=== PATIENT | female | born 1940 | race African-American/Black ===

== ENCOUNTER 2016-11-16 10:14 | Emergency (ER) | payer MEDICARE, MEDICAID ==
[~2016-11-16 10:14] MED LIST: /AMLO25TA OR; /BUSP5TA OR; /FELO5TASR PO; /LORA10TA PO; /PRAV20TA PO; /SYST15OP OU; /WARF2TA PO; /WARF5TA OR; /WARF5TA PO; ACTO45TA OR; ALBU17IN2 INH; ALLE25CA PO; ALLO100T OR; ALLO100T PO; ALLO300T OR; ALRE0.5S OU; AMLO10TAB OR; AMLO5TAB OR; ANTI25TA OR; BABY81CH OR; CALC0.5C OR; CALC0.5C PO; CARV12.5 PO; CARV3.12 PO; CARV6.25 OR; CATA0.1T PO; CEFD300C OR; CLAR5CHW OR; COLA100C2 OR; COLA100C2 PO; COLA50CA3 PO; COLC1TAB5 PO; COZA100T2 PO; COZA25TA8 OR; DEMA5TAB OR; DOXY100C PO; FAMO20TA2 PO; FEBU40TA PO; FELO10TA PO; FOLI1TAB OR; FOLI400T OR; FURO40TA2 PO; GABA300C2 PO; HYDR25TA OR; IMDU30TA PO; INSULANT SC; ISOS30TA4 PO; ISOS60TA2 PO; JANU100T PO; KLON0.5T OR; LORATADINE PO; LOSA100T36 PO; MAGN500T2 OR; MECL12.575 PO; MECL25CH PO; MICA80TA OR; MICARDIS OR; MILKSUS OR; MIRALEX PO; NEUR100C OR; NITR0.4S SL; OMEP20TA7 OR; PAIN325T PO; PERCOCET PO; PLAV75TA2 OR; POLYBTL PO; PRAV10TA PO; PRED20TAB PO; PRED25TA PO; PRED5SOL2 PO; PRIL20CA OR; PRIL20CA9 PO; PRIL40CA OR; REFR0.1D OU; REFRESH OU; REST0.05 OU; RESTASIS OU; ROCALTROL; SALI0.653; SIMV40TA2 OR; SITA50TAB PO; SPIR25TA2 OR; SPIR25TA2 PO; SUSTAIN OU; SYST1SOL OU; TORS20TA2 OR; TORS5TAB PO; TRAM50TA2 PO; TRAZ100T OR; TRAZ100T PO; TRAZ50TA OR; TUMS500C PO; VIBR100C OR; VITAMIN D50000 UNT OR; WARF-23 PO; [UNRECOGNIZED DRUG - CODE] PO; [UNRECOGNIZED DRUG - OTHER]; [UNRECOGNIZED DRUG - OTHER]; [UNRECOGNIZED DRUG - OTHER]; [UNRECOGNIZED DRUG - OTHER]; coreg PO; flexeril PO; januvia PO; loratadine OR; norvasc; restasis OU; systane OU; tylenol; uloric
[2016-11-16 11:29] LABS: BASO % 0.9 % (0.0-1.0); EOS % 0.3 % (0.0-3.0); LARGE UNSTAINED CELL # 0.2 K/mm3 (0.0-0.4); LARGE UNSTAINED CELL % 4.6 % (0.0-4.0); LYMPH # 2.1 K/mm3 (1.5-4.5); LYMPH % 43.2 % (24.0-44.0); MEAN CORPUSCULAR HEMOGLOBIN 26.7 pg (27.0-33.0); MEAN CORPUSCULAR HGB CONC 33.5 g/dl (32.0-36.5); MEAN CORPUSCULAR VOLUME 79.7 fl (80.0-96.0); MONO # 0.4 K/mm3 (0.0-0.8); MONO % 7.8 % (0.0-5.0); NEUTROPHILS # 1.9 K/mm3 (1.8-7.7); NEUTROPHILS % 43.1 % (36.0-66.0); PLATELET COUNT, AUTOMATED 248 k/mm3 (150-450); RED CELL DISTRIBUTION WIDTH 15.3 % (11.5-14.5); WHITE BLOOD COUNT 4.4 K/mm3 (4.0-10.0)
[2016-11-16 11:48] LABS: ANION GAP 7 MEQ/L (8-16); BLOOD UREA NITROGEN 23 MG/DL (7-18); CALCIUM LEVEL 8.7 MG/DL (8.8-10.2); CARBON DIOXIDE LEVEL 28 MEQ/L (21-32); CHLORIDE LEVEL 103 MEQ/L (98-107); GLOMERULAR FILTRATION RATE 47.3 (>39); GLUCOSE, FASTING 146 MG/DL (83-110); POTASSIUM SERUM 3.9 MEQ/L (3.5-5.1); SODIUM LEVEL 138 MEQ/L (136-145)
[2016-11-16] MEDS ORDERED: DOXYCYCLINE HYCLATE 100 MG TAB As Ordered ONE (12:40)
--- NOTE | 2016-11-16 12:57 | EDDOCDS ---
Nurse's Notes [facility] Name: Naya Plascencia Age: 76 yrs Sex: Female : 1940 Arrival Date: 11/16/2016 Time: 10:14 Bed 15 Private MD: DR [facility] Diagnosis: Acute sinusitis;Acute bronchitis Presentation: 11/16 10:20 Presenting complaint: Patient states: "I have bronchitis since , and it's ead getting worse." Reports productive cough. Also c/o diarrhea yesterday. Adult Sepsis Screening: The patient does not have new or worsening altered mentation. Patient's respiratory rate is less than 22. Systolic blood pressure is greater than 100. Patient has a qSOFA score of 0- Negative Sepsis Screen. Suicide/Homicide risk assessment- the patient denies having any suicidal and/or homicidal ideations and does not present with any other emotional, behavioral or mental health complaints. Status: Patient is not a car servicer or dependent. Transition of care: patient was not received from another setting of care. 10:20 Acuity: PARMINDER Level 4 ead 10:20 Method Of Arrival: Walkin/Carried/Asstd ead 10:59 Acuity: PARMINDER Level 3 ead Triage Assessment: 10:24 General: Appears in no apparent distress, Behavior is appropriate for age, cooperative. ead Pain: Location: back. Pain: Pain currently is 9 out of 10 on a pain scale. Neurological: Level of Consciousness is awake, alert, Oriented to person, place, time. Respiratory: Airway is patent Respiratory effort is even, unlabored, Reports cough that is productive. Respiratory: Onset: The symptoms/episode began/occurred 4-5 days ago. Derm: Skin is dry, Skin is normal, Skin temperature is warm. Historical: - Allergies: Albuterol; HYDRALAZINE; IRON COMPLEX; Lisinopril; Lipitor; Nitrostat; Metformin HCl; Ragweed; PENICILLINS; Sulfa (Sulfonamide Antibiotics); Aspirin; - Home Meds: 1. Lantus 30 units Sub-Q daily 2. Eliquis 5 mg oral tab 1 tab 2 times per day 3. carvedilol 6.25 mg oral tab 2 times per day 4. omeprazole 20 mg Oral cpDR once daily 5. chlorthalidone 25 mg Oral tab once daily 6. acetaminophen 650 mg Oral tab 1 tab as needed - PMHx: polyarthralgia; Hypertension; hyperlipidemia; Diabetes - IDDM: controlled; cerebral amyloid angiopathy; back pain; Atrial Fib; GERD; - PSHx: blood clot removal from right groin; - Social history: Smoking status: Patient states former smoker of tobacco. No barriers to communication noted, The patient speaks fluent Luxembourgish, Speaks appropriately for age. - Family history: Not pertinent. - : The pt / caregiver states he / she is on anticoagulants: Eliquis Home medication list is obtained from the patient, pill bottles. - Exposure Risk Screening:: None identified. Screenin:25 Screening information is obtained from the patient. Fall risk: No risks identified. ead Assistance ADL's: requires no assistance with activities of daily living. Abuse/DV Screen: The patient / caregiver reports he/she is: not in a situation that causes fear, pain or injury. Nutritional screening: No deficits noted. Advance Directives: Currently, there is a health care proxy, Zac Fuentes and Nii Betts. There is an active DNR order and the pt has a copy here at this time. There is a living will, and a copy is available at this time. There is no Power of Systems Analyst Developer. information regarding advance directives can be obtained from Zac Fuentes: [phone] and Nii Betts: [phone]. Advance Directives: There is. home support is adequate. Assessment: 11:17 General: Appears in no apparent distress, Behavior is appropriate for age, cooperative. hs1 Pain: Location: mid-sternal area Pain currently is 8 out of 10 on a pain scale. Neurological: No deficits noted. EENT: No deficits noted. Cardiovascular: Rhythm is sinus rhythm No ectopy. Chest pain is described as mild, ONLY WHEN SHE COUGHS. is located in sternum. Respiratory: Airway is patent Respiratory effort is even, unlabored, Breath sounds are coarse bilaterally. Derm: Skin is pink, warm & dry. normal. 12:28 Reassessment: Patient states symptoms have not improved. Patient states still coughing. hs1 Patient states aware of discharge and would like to go home. Patient states daughter picking her up. . General: Appears in no apparent distress. 12:54 Reassessment: Patient short of breath with exertion.. General: Appears comfortable, kcs well developed, well nourished, well groomed, Behavior is cooperative, pleasant. Pain: Location: chest Aggravated by coughing. Neurological: Level of Consciousness is awake, alert. Respiratory: Airway is patent Respiratory effort is even, unlabored, Respiratory pattern is regular, symmetrical. Derm: Skin is intact, is healthy with good turgor, Skin is dry, Skin is black. Vital Signs: 10:17 BP 167 / 85; Pulse 98; Resp 20 S; Temp 98.4(O); Pulse Ox 98% on R/A; Weight 94.35 kg dd6 (R); Height 5 ft. 4 in. (162.56 cm) (R); 11:43 BP 123 / 67 (auto/); hs1 11:43 Pulse 62 MON; Pulse Ox 99% ; hs1 12:13 BP 153 / 72 (auto/); hs1 12:13 Pulse 66 MON; Resp 18; Pulse Ox 100% ; hs1 12:42 Pulse 68 MON; Resp 18; Temp 98.3; Pulse Ox 96% ; Pain 8/10; hs1 12:43 BP 146 / 66 (auto/); hs1 10:17 Body Mass Index 35.70 (94.35 kg, 162.56 cm) dd6 Vitals: 10:17 Log In Time: November 16, 2016 at 10:15. dd6 ED Course: 10:15 Patient visited by Gino Braden PCA. dd6 10:15 Patient moved to Waiting dd6 10:16 DR [facility] is Private Physician. dd6 10:18 Patient moved to Pre RCE dd6 10:21 Triage Initiated ead 10:28 Patient moved to Triage 1 ead 10:29 [facility]ast[facility] ef1 10:29 Edith Etienne MD is Attending Physician. ef1 10:31 Patient visited by Anastasiia Araya PA-C. ef1 10:45 EKG done. (by ED staff). Reviewed by Anastasiia Araya PA-C. ar3 10:52 Patient visited by Sonia Falk PCA. ar3 11:01 Patient moved to 19 ar3 11:02 Patient moved to Triage 1 jc4 11:03 Patient moved to 15 ar3 11:19 Inserted saline lock: 20 gauge in right antecubital area and blood collected. The hs1 patient tolerated the procedure well. 11:22 Patient visited by Sarah Michaud RN. hs1 11:22 Basic Metabolic Profile Sent. hs1 11:22 CBC with Diff Sent. hs1 11:22 Cardiac Injury Profile Sent. hs1 11:22 Troponin Sent. hs1 11:30 [facility] Payment Agreement was scanned into [employer] and attached to record. lg 11:49 Patient visited by Anastasiia Araya PA-C. ef1 12:14 Patient visited by Anastasiia Araya PA-C. ef1 12:25 The patient / caregiver is instructed regarding the plan of care and ED course. hs1 12:37 DR [facility] is Referral Physician. ef1 12:37 Michael Watkins is Referral Physician. ef1 12:45 Discontinued IV lock intact, bleeding controlled, pressure dressing applied, No hs1 redness/swelling at site. 12:45 No procedures done that require assistance. hs1 Administered Medications: 12:43 Drug: Doxycycline 100 mg [doxycycline hyclate 100 mg tablet (1 tabs)] Route: PO; hs1 Order Results: Lab Order: Basic Metabolic Profile; SPEC'M 11/16/16 11:06 Test: GLUCOSE, FASTING; Value: 146; Range: 83-110; Abnormal: Above high normal; Units: MG/DL; Status: F Test: BLOOD UREA NITROGEN; Value: 23; Range: 7-18; Abnormal: Above high normal; Units: MG/DL; Status: F Test: CREATININE FOR GFR; Value: 1.40; Range: 0.55-1.02; Abnormal: Above high normal; Units: MG/DL; Status: F Test: GLOMERULAR FILTRATION RATE; Value: 47.3; Range: >39; Status: F Test: SODIUM LEVEL; Value: 138; Range: 136-145; Units: MEQ/L; Status: F Test: POTASSIUM SERUM; Value: 3.9; Range: 3.5-5.1; Units: MEQ/L; Status: F Test: CHLORIDE LEVEL; Value: 103; Range: 98-107; Units: MEQ/L; Status: F Test: CARBON DIOXIDE LEVEL; Value: 28; Range: 21-32; Units: MEQ/L; Status: F Test: ANION GAP; Value: 7; Range: 8-16; Abnormal: Below low normal; Units: MEQ/L; Status: F Test: CALCIUM LEVEL; Value: 8.7; Range: 8.8-10.2; Abnormal: Below low normal; Units: MG/DL; Status: F Test Note: ; Units are mL/min/1.73 m2 Chronic Kidney Disease Staging per NKF: Stage I & II GFR >=60 Normal to Mildly Decreased Stage III GFR 30-59 Moderately Decreased Stage IV GFR 15-29 Severely Decreased Stage V GFR <15 Very Little GFR Left ESRD GFR <15 on STAMPING OPERATOR Lab Order: CBC with Diff; SPEC'M 11/16/16 11:06 Test: WHITE BLOOD COUNT; Value: 4.4; Range: 4.0-10.0; Units: K/mm3; Status: F Test: RED BLOOD COUNT; Value: 4.61; Range: 4.00-5.40; Units: M/mm3; Status: F Test: HEMOGLOBIN; Value: 12.3; Range: 12.0-16.0; Units: g/dl; Status: F Test: HEMATOCRIT; Value: 36.8; Range: 36.0-47.0; Units: %; Status: F Test: MEAN CORPUSCULAR VOLUME; Value: 79.7; Range: 80.0-96.0; Abnormal: Below low normal; Units: fl; Status: F Test: MEAN CORPUSCULAR HEMOGLOBIN; Value: 26.7; Range: 27.0-33.0; Abnormal: Below low normal; Units: pg; Status: F Test: MEAN CORPUSCULAR HGB CONC; Value: 33.5; Range: 32.0-36.5; Units: g/dl; Status: F Test: RED CELL DISTRIBUTION WIDTH; Value: 15.3; Range: 11.5-14.5; Abnormal: Above high normal; Units: %; Status: F Test: PLATELET COUNT, AUTOMATED; Value: 248; Range: 150-450; Units: k/mm3; Status: F Test: NEUTROPHILS %; Value: 43.1; Range: 36.0-66.0; Units: %; Status: F Test: LYMPH %; Value: 43.2; Range: 24.0-44.0; Units: %; Status: F Test: MONO %; Value: 7.8; Range: 0.0-5.0; Abnormal: Above high normal; Units: %; Status: F Test: EOS %; Value: 0.3; Range: 0.0-3.0; Units: %; Status: F Test: BASO %; Value: 0.9; Range: 0.0-1.0; Units: %; Status: F Test: LARGE UNSTAINED CELL %; Value: 4.6; Range: 0.0-4.0; Abnormal: Above high normal; Units: %; Status: F Test: NEUTROPHILS #; Value: 1.9; Range: 1.8-7.7; Units: K/mm3; Status: F Test: LYMPH #; Value: 2.1; Range: 1.5-4.5; Units: K/mm3; Status: F Test: MONO #; Value: 0.4; Range: 0.0-0.8; Units: K/mm3; Status: F Test: EOS #; Value: 0.0; Range: 0.0-0.50; Units: K/mm3; Status: F Test: BASO #; Value: 0.0; Range: 0.0-0.2; Units: K/mm3; Status: F Test: LARGE UNSTAINED CELL #; Value: 0.2; Range: 0.0-0.4; Units: K/mm3; Status: F Lab Order: Cardiac Injury Profile; [facility]' 11/16/16 11:06 Test: CPK CREATINE PHOSPHOKINASE; Value: 194; Range: 26-192; Abnormal: Above high normal; Units: U/L; Status: F Test: CK-MB VALUE MASS; Value: 1.7; Range: 0.0-3.6; Units: NG/ML; Status: F Test: MB/CK RELATIVE INDEX; Value: 0.87; Range: < OR =4; Status: F Test Note: ; DIAGNOSIS CRITERIA MMB ng/ml Relative Index (RI) NON-AMI < or = 5 N/A MARIE ZONE > 5 < or = 4 AMI > 5 > 4 Lab Order: Troponin; SPEC'M 11/16/16 11:06 Test: TROPONIN I; Value: < 0.02; Range: < 0.10; Units: NG/ML; Status: F Test Note: ; Troponin I Reference Interval for [employer] LOCI: 99th Percentile= 0.00-0.045 ng/ml Risk Stratification: <= 0.10 ng/ml Decreased Risk for Adverse Clinical Events. 0.10-1.50 ng/ml Increased Risk for Adverse Clinical Events. Evaluation of additional criterion and/or repeat testing in 2-6 hours is suggested to rule out myocardial damage. >= 1.50 ng/ml Indicative of Myocardial Injury. Outcome: 12:37 Discharge ordered by Provider. ef1 12:54 Discharge Assessment: Patient awake, alert and oriented x 3. No cognitive and/or kcs functional deficits noted. Patient verbalized understanding of disposition instructions. Patient awake and alert. patient administered narcotics - no. The following High Risk Discharge criteria are identified: None. Discharged to home ambulatory. Condition: stable. Discharge instructions given to patient, Instructed on discharge instructions, follow up and referral plans. medication usage, Demonstrated understanding of instructions, medications, Pt was receptive of discharge instructions/ teaching. No special radiology studies were completed. Property sent home with patient. 12:57 Patient left the ED. kcs Signatures: Sinai Yeung, RN RN kcs Melani Mccarthy, Reg Reg lg Gino Braden, NEEDLEWORKER NEEDLEWORKER dd6 Anastasiia Araya, PA-C PA-C ef1 Sonia Falk, NEEDLEWORKER NEEDLEWORKER ar3 Sarah Michaud RN RN hs1 Dannielle Crespo RN RN jc4 Tania Lopez,SHAMIKA RN ead Corrections: (The following items were deleted from the chart) 12:51 11:17 Cardiovascular: Rhythm is sinus rhythm No ectopy. Chest pain is described as hs1 mild, ONLY WHEN SHE COUGHS. is located in STRENUM hs1 MTDD
--- NOTE | 2016-11-16 12:57 | EDDOCDS ---
Physician Documentation [facility] Name: Naya Plascencia Age: 76 yrs Sex: Female : 1940 Arrival Date: 11/16/2016 Time: 10:14 Bed 15 Private MD: DR [facility] Disposition: 11/16/16 12:37 Discharged to Home/Self Care. Impression: Acute sinusitis, Acute bronchitis. - Condition is Stable. - Discharge Instructions: Sinusitis, [id number], Acute Bronchitis, [id number]. - Prescriptions for Doxycycline Hyclate 100 mg Oral Tablet - take 1 tablet by ORAL route every 12 hours; 20 tablet. Claritin 10 mg Oral Tablet - take 1 tablet by ORAL route once daily As needed; 30 tablet. - Medication Reconciliation, Local Pharmacy Hours form. - Follow up: [facility]; When: 1 - 2 days; Reason: Recheck today's complaints, Continuance of care. Follow up: Emergency Department; Reason: Worsening of conditions. Follow up: Michael Watkins; When: Call to arrange an appointment; Reason: Further diagnostic work-up, Recheck today's complaints, Continuance of care. - Problem is new. - Symptoms have improved. Historical: - Allergies: Albuterol; HYDRALAZINE; IRON COMPLEX; Lisinopril; Lipitor; Nitrostat; Metformin HCl; Ragweed; PENICILLINS; Sulfa (Sulfonamide Antibiotics); Aspirin; - Home Meds: 1. Lantus 30 units Sub-Q daily 2. Eliquis 5 mg oral tab 1 tab 2 times per day 3. carvedilol 6.25 mg oral tab 2 times per day 4. omeprazole 20 mg Oral cpDR once daily 5. chlorthalidone 25 mg Oral tab once daily 6. acetaminophen 650 mg Oral tab 1 tab as needed - PMHx: polyarthralgia; Hypertension; hyperlipidemia; Diabetes - IDDM: controlled; cerebral amyloid angiopathy; back pain; Atrial Fib; GERD; - PSHx: blood clot removal from right groin; - Social history: Smoking status: Patient states former smoker of tobacco. No barriers to communication noted, The patient speaks fluent Luxembourgish, Speaks appropriately for age. - Family history: Not pertinent. - : The pt / caregiver states he / she is on anticoagulants: Eliquis Home medication list is obtained from the patient, pill bottles. - Exposure Risk Screening:: None identified. Vital Signs: 11/16 10:17 BP 167 / 85; Pulse 98; Resp 20 S; Temp 98.4(O); Pulse Ox 98% on R/A; Weight 94.35 kg / dd6 208.01 lbs (R); Height 5 ft. 4 in. (162.56 cm) (R); 11:43 BP 123 / 67 (auto/); hs1 11:43 Pulse 62 MON; Pulse Ox 99% ; hs1 12:13 BP 153 / 72 (auto/); hs1 12:13 Pulse 66 MON; Resp 18; Pulse Ox 100% ; hs1 12:42 Pulse 68 MON; Resp 18; Temp 98.3; Pulse Ox 96% ; Pain 8/10; hs1 12:43 BP 146 / 66 (auto/); hs1 10:17 Body Mass Index 35.70 (94.35 kg, 162.56 cm) dd6 MDM: 10:40 ECG WITH READING ER PHYS+CARDIAG ordered. EDMS 11:01 Computer Numerical Control Operator/Pulse Ox/q 30 min VS ordered. ef1 11:01 IV Saline Lock ordered. ef1 11:01 Oxygen at 4L/Min NC or Home dosage ordered. ef1 11:01 Rhythm Strip to chart ordered. ef1 11:01 Undress patient appropriately for examination ordered. ef1 11:02 Basic Metabolic Profile Ordered. EDMS 11:02 CBC with Diff Ordered. EDMS 11:02 Cardiac Injury Profile Ordered. EDMS 11:02 Troponin Ordered. EDMS 11:02 portable chest Ordered. EDMS 11:29 Financial registration complete. lg 11:30 [facility] [place] [place] Payment Agreement was scanned into [employer] and attached to record. lg 11:50 Basic Metabolic Profile Reviewed. ef1 11:50 CBC with Diff Reviewed. ef1 11:50 Troponin Reviewed. ef1 12:14 Basic Metabolic Profile Reviewed. ef1 12:14 Cardiac Injury Profile Reviewed. ef1 12:14 Troponin Reviewed. ef1 12:36 Doxycycline 100 mg PO once ordered. ef1 Administered Medications: 12:43 Drug: Doxycycline 100 mg [doxycycline hyclate 100 mg tablet (1 tabs)] Route: PO; hs1 Signatures: Dispatcher [facility] EDNV Sinai Yeung RN RN kcs Ganter LoriLee, Reg Reg lg Quiana, Anastasiia, PA-C PA-C ef1 Tania Lopez RN RN ead Sarah Michaud RN hs1 The chart was reviewed and I authenticate all verbal orders and agree with the evaluation and treatment provided.Attachments: 11:30 [facility] Payment Agreement lg MTDD
--- NOTE | 2016-11-16 20:21 | REP ---
Portable sitting chest radiograph 11/16/2016 Indication: Pain Comparison: PA chest 03/21/2016 Findings: The cardiac silhouette is mildly enlarged without change. Atherosclerotic changes are seen in the tortuous thoracic aorta. There are diminished lung volumes with small amount of bibasilar atelectasis. There are moderate degenerative changes in thoracic spine. Soft tissues are within normal limits. Impression: Mild cardiomegaly, unchanged; atherosclerotic changes and tortuous thoracic aorta Diminished lung volumes with a small amount of bibasilar atelectasis Signed by Donna Valente MD 11/16/2016 08:12 P
--- NOTE | 2016-11-17 08:02 | ECGEPIP ---
Stationary ECG Study [facility] - ED Test Date: 2016-11-16 Pat Name: VIVIANA PEÑALOZA Department: Room: - Gender: F Media Production Operator: agustín : 1940 Requested By: Anastasiia Araya PA-C Order Number: [id number] Reading MD: Chloe Boone Measurements Intervals [place] Rate: 70 P: 65 [place]: 160 QRS: 23 QRSD: 85 T: 223 QT: 389 QTc: 420 Interpretive Statements SINUS RHYTHM WITH OCCASIONAL VENTRICULAR PREMATURE COMPLEXES LEFT VENTRICULAR HYPERTROPHY AND ST-T CHANGE NSTTW ABNORMALITY SIMILAR 03/21/16 Electronically Signed On 11-17-2016 8:02:08 EST by Chloe Boone
--- NOTE | 2016-11-18 13:57 | EDDOCDS ---
Nurse's Notes [facility] Name: Naya Peñaloza Age: 76 yrs Sex: Female : 1940 Arrival Date: 11/16/2016 Time: 10:14 Bed 15 Private MD: DR [facility] Diagnosis: Acute sinusitis;Acute bronchitis Presentation: 11/16 10:20 Presenting complaint: Patient states: "I have bronchitis since , and it's ead getting worse." Reports productive cough. Also c/o diarrhea yesterday. Adult Sepsis Screening: The patient does not have new or worsening altered mentation. Patient's respiratory rate is less than 22. Systolic blood pressure is greater than 100. Patient has a qSOFA score of 0- Negative Sepsis Screen. Suicide/Homicide risk assessment- the patient denies having any suicidal and/or homicidal ideations and does not present with any other emotional, behavioral or mental health complaints. Status: Patient is not a servicenow administrator developer or dependent. Transition of care: patient was not received from another setting of care. 10:20 Acuity: PARMINDER Level 4 ead 10:20 Method Of Arrival: Walkin/Carried/Asstd ead 10:59 Acuity: PARMINDER Level 3 ead Triage Assessment: 10:24 General: Appears in no apparent distress, Behavior is appropriate for age, cooperative. ead Pain: Location: back. Pain: Pain currently is 9 out of 10 on a pain scale. Neurological: Level of Consciousness is awake, alert, Oriented to person, place, time. Respiratory: Airway is patent Respiratory effort is even, unlabored, Reports cough that is productive. Respiratory: Onset: The symptoms/episode began/occurred 4-5 days ago. Derm: Skin is dry, Skin is normal, Skin temperature is warm. Historical: - Allergies: Albuterol; HYDRALAZINE; IRON COMPLEX; Lisinopril; Lipitor; Nitrostat; Metformin HCl; Ragweed; PENICILLINS; Sulfa (Sulfonamide Antibiotics); Aspirin; - Home Meds: 1. Lantus 30 units Sub-Q daily 2. Eliquis 5 mg oral tab 1 tab 2 times per day 3. carvedilol 6.25 mg oral tab 2 times per day 4. omeprazole 20 mg Oral cpDR once daily 5. chlorthalidone 25 mg Oral tab once daily 6. acetaminophen 650 mg Oral tab 1 tab as needed - PMHx: polyarthralgia; Hypertension; hyperlipidemia; Diabetes - IDDM: controlled; cerebral amyloid angiopathy; back pain; Atrial Fib; GERD; - PSHx: blood clot removal from right groin; - Social history: Smoking status: Patient states former smoker of tobacco. No barriers to communication noted, The patient speaks fluent Greek, Speaks appropriately for age. - Family history: Not pertinent. - : The pt / caregiver states he / she is on anticoagulants: Eliquis Home medication list is obtained from the patient, pill bottles. - Exposure Risk Screening:: None identified. Screenin:25 Screening information is obtained from the patient. Fall risk: No risks identified. ead Assistance ADL's: requires no assistance with activities of daily living. Abuse/DV Screen: The patient / caregiver reports he/she is: not in a situation that causes fear, pain or injury. Nutritional screening: No deficits noted. Advance Directives: Currently, there is a health care proxy, Zac Fuentes and Nii Betts. There is an active DNR order and the pt has a copy here at this time. There is a living will, and a copy is available at this time. There is no Power of Process Control Programmer. information regarding advance directives can be obtained from Zac Fuentes: [phone] and Nii Betts: [phone]. Advance Directives: There is. home support is adequate. Assessment: 11:17 General: Appears in no apparent distress, Behavior is appropriate for age, cooperative. hs1 Pain: Location: mid-sternal area Pain currently is 8 out of 10 on a pain scale. Neurological: No deficits noted. EENT: No deficits noted. Cardiovascular: Rhythm is sinus rhythm No ectopy. Chest pain is described as mild, ONLY WHEN SHE COUGHS. is located in sternum. Respiratory: Airway is patent Respiratory effort is even, unlabored, Breath sounds are coarse bilaterally. Derm: Skin is pink, warm & dry. normal. 12:28 Reassessment: Patient states symptoms have not improved. Patient states still coughing. hs1 Patient states aware of discharge and would like to go home. Patient states daughter picking her up. . General: Appears in no apparent distress. 12:54 Reassessment: Patient short of breath with exertion.. General: Appears comfortable, kcs well developed, well nourished, well groomed, Behavior is cooperative, pleasant. Pain: Location: chest Aggravated by coughing. Neurological: Level of Consciousness is awake, alert. Respiratory: Airway is patent Respiratory effort is even, unlabored, Respiratory pattern is regular, symmetrical. Derm: Skin is intact, is healthy with good turgor, Skin is dry, Skin is black. Vital Signs: 10:17 BP 167 / 85; Pulse 98; Resp 20 S; Temp 98.4(O); Pulse Ox 98% on R/A; Weight 94.35 kg dd6 (R); Height 5 ft. 4 in. (162.56 cm) (R); 11:43 BP 123 / 67 (auto/); hs1 11:43 Pulse 62 MON; Pulse Ox 99% ; hs1 12:13 BP 153 / 72 (auto/); hs1 12:13 Pulse 66 MON; Resp 18; Pulse Ox 100% ; hs1 12:42 Pulse 68 MON; Resp 18; Temp 98.3; Pulse Ox 96% ; Pain 8/10; hs1 12:43 BP 146 / 66 (auto/); hs1 10:17 Body Mass Index 35.70 (94.35 kg, 162.56 cm) dd6 Vitals: 10:17 Log In Time: November 16, 2016 at 10:15. dd6 ED Course: 10:15 Patient visited by Gino Braden PCA. dd6 10:15 Patient moved to Waiting dd6 10:16 DR [facility] is Private Physician. dd6 10:18 Patient moved to Pre RCE dd6 10:21 Triage Initiated ead 10:28 Patient moved to Triage 1 ead 10:29 Anastasiia Aray[facility]. ef1 10:29 Edith Etienne MD is Attending Physician. ef1 10:31 Patient visited by Anastasiia Araya PA-C. ef1 10:45 EKG done. (by ED staff). Reviewed by Anastasiia Araya PA-C. ar3 10:52 Patient visited by Sonia Falk PCA. ar3 11:01 Patient moved to 19 ar3 11:02 Patient moved to Triage 1 jc4 11:03 Patient moved to 15 ar3 11:19 Inserted saline lock: 20 gauge in right antecubital area and blood collected. The hs1 patient tolerated the procedure well. 11:22 Patient visited by Sarah Michaud RN. hs1 11:22 Basic Metabolic Profile Sent. hs1 11:22 CBC with Diff Sent. hs1 11:22 Cardiac Injury Profile Sent. hs1 11:22 Troponin Sent. hs1 11:30 [facility] Payment Agreement was scanned into [employer] and attached to record. lg 11:49 Patient visited by Anastasiia Araya PA-C. ef1 12:14 Patient visited by Anastasiia Araya PA-C. ef1 12:25 The patient / caregiver is instructed regarding the plan of care and ED course. hs1 12:37 DR [facility] is Referral Physician. ef1 12:37 Michael Watkins is Referral Physician. ef1 12:45 Discontinued IV lock intact, bleeding controlled, pressure dressing applied, No hs1 redness/swelling at site. 12:45 No procedures done that require assistance. hs1 14:47 T-Sheet-- Draft Copy was scanned into [employer] and attached to record. gb 14:48 ECG/EKG was scanned into [employer] and attached to record. gb 20:35 portable chest Returned. EDMS 11/17 08:09 EKG-ADULT Returned. EDMS Administered Medications: 11/16 12:43 Drug: Doxycycline 100 mg [doxycycline hyclate 100 mg tablet (1 tabs)] Route: PO; hs1 Order Results: Lab Order: Basic Metabolic Profile; SPEC'M 11/16/16 11:06 Test: GLUCOSE, FASTING; Value: 146; Range: 83-110; Abnormal: Above high normal; Units: MG/DL; Status: F Test: BLOOD UREA NITROGEN; Value: 23; Range: 7-18; Abnormal: Above high normal; Units: MG/DL; Status: F Test: CREATININE FOR GFR; Value: 1.40; Range: 0.55-1.02; Abnormal: Above high normal; Units: MG/DL; Status: F Test: GLOMERULAR FILTRATION RATE; Value: 47.3; Range: >39; Status: F Test: SODIUM LEVEL; Value: 138; Range: 136-145; Units: MEQ/L; Status: F Test: POTASSIUM SERUM; Value: 3.9; Range: 3.5-5.1; Units: MEQ/L; Status: F Test: CHLORIDE LEVEL; Value: 103; Range: 98-107; Units: MEQ/L; Status: F Test: CARBON DIOXIDE LEVEL; Value: 28; Range: 21-32; Units: MEQ/L; Status: F Test: ANION GAP; Value: 7; Range: 8-16; Abnormal: Below low normal; Units: MEQ/L; Status: F Test: CALCIUM LEVEL; Value: 8.7; Range: 8.8-10.2; Abnormal: Below low normal; Units: MG/DL; Status: F Test Note: ; Units are mL/min/1.73 m2 Chronic Kidney Disease Staging per NKF: Stage I & II GFR >=60 Normal to Mildly Decreased Stage III GFR 30-59 Moderately Decreased Stage IV GFR 15-29 Severely Decreased Stage V GFR <15 Very Little GFR Left ESRD GFR <15 on CAMP NURSE Lab Order: CBC with Diff; SPEC'M 11/16/16 11:06 Test: WHITE BLOOD COUNT; Value: 4.4; Range: 4.0-10.0; Units: K/mm3; Status: F Test: RED BLOOD COUNT; Value: 4.61; Range: 4.00-5.40; Units: M/mm3; Status: F Test: HEMOGLOBIN; Value: 12.3; Range: 12.0-16.0; Units: g/dl; Status: F Test: HEMATOCRIT; Value: 36.8; Range: 36.0-47.0; Units: %; Status: F Test: MEAN CORPUSCULAR VOLUME; Value: 79.7; Range: 80.0-96.0; Abnormal: Below low normal; Units: fl; Status: F Test: MEAN CORPUSCULAR HEMOGLOBIN; Value: 26.7; Range: 27.0-33.0; Abnormal: Below low normal; Units: pg; Status: F Test: MEAN CORPUSCULAR HGB CONC; Value: 33.5; Range: 32.0-36.5; Units: g/dl; Status: F Test: RED CELL DISTRIBUTION WIDTH; Value: 15.3; Range: 11.5-14.5; Abnormal: Above high normal; Units: %; Status: F Test: PLATELET COUNT, AUTOMATED; Value: 248; Range: 150-450; Units: k/mm3; Status: F Test: NEUTROPHILS %; Value: 43.1; Range: 36.0-66.0; Units: %; Status: F Test: LYMPH %; Value: 43.2; Range: 24.0-44.0; Units: %; Status: F Test: MONO %; Value: 7.8; Range: 0.0-5.0; Abnormal: Above high normal; Units: %; Status: F Test: EOS %; Value: 0.3; Range: 0.0-3.0; Units: %; Status: F Test: BASO %; Value: 0.9; Range: 0.0-1.0; Units: %; Status: F Test: LARGE UNSTAINED CELL %; Value: 4.6; Range: 0.0-4.0; Abnormal: Above high normal; Units: %; Status: F Test: NEUTROPHILS #; Value: 1.9; Range: 1.8-7.7; Units: K/mm3; Status: F Test: LYMPH #; Value: 2.1; Range: 1.5-4.5; Units: K/mm3; Status: F Test: MONO #; Value: 0.4; Range: 0.0-0.8; Units: K/mm3; Status: F Test: EOS #; Value: 0.0; Range: 0.0-0.50; Units: K/mm3; Status: F Test: BASO #; Value: 0.0; Range: 0.0-0.2; Units: K/mm3; Status: F Test: LARGE UNSTAINED CELL #; Value: 0.2; Range: 0.0-0.4; Units: K/mm3; Status: F Lab Order: Cardiac Injury Profile; SPEC'M 11/16/16 11:06 Test: CPK CREATINE PHOSPHOKINASE; Value: 194; Range: 26-192; Abnormal: Above high normal; Units: U/L; Status: F Test: CK-MB VALUE MASS; Value: 1.7; Range: 0.0-3.6; Units: NG/ML; Status: F Test: MB/CK RELATIVE INDEX; Value: 0.87; Range: < OR =4; Status: F Test Note: ; DIAGNOSIS CRITERIA MMB ng/ml Relative Index (RI) NON-AMI < or = 5 N/A MARIE ZONE > 5 < or = 4 AMI > 5 > 4 Lab Order: Troponin; SPEC'M 11/16/16 11:06 Test: TROPONIN I; Value: < 0.02; Range: < 0.10; Units: NG/ML; Status: F Test Note: ; Troponin I Reference Interval for Siemens [place] LOCI: 99th Percentile= 0.00-0.045 ng/ml Risk Stratification: <= 0.10 ng/ml Decreased Risk for Adverse Clinical Events. 0.10-1.50 ng/ml Increased Risk for Adverse Clinical Events. Evaluation of additional criterion and/or repeat testing in 2-6 hours is suggested to rule out myocardial damage. >= 1.50 ng/ml Indicative of Myocardial Injury. 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; : 1940 Requested By: Anastasiia Araya PA-C; Order Number: [id number] Reading MD: Chloe Boone; Measurements; Intervals [place]; Rate: 70 P: 65; NV: 160 QRS: 23; QRSD: 85 T: 223; QT: 389; QTc: 420; Interpretive Statements; SINUS RHYTHM WITH OCCASIONAL VENTRICULAR PREMATURE COMPLEXES; LEFT VENTRICULAR HYPERTROPHY AND ST-T CHANGE; NSTTW ABNORMALITY; SIMILAR 03/21/16; Electronically Signed On 11-17-2016 8:02:08 EST by Chloe Boone; Radiology Order: portable chest Test: portable chest REASON FOR EXAMINATION: Chest Pain; Portable sitting chest radiograph 11/16/2016; ; Indication: Pain; ; Comparison: PA chest 03/21/2016; ; Findings: The cardiac silhouette is mildly enlarged without change.; Atherosclerotic changes are seen in the tortuous thoracic aorta. There are; diminished lung volumes with small amount of bibasilar atelectasis. There are; moderate degenerative changes in thoracic spine. Soft tissues are within normal; limits.; ; Impression:; ; Mild cardiomegaly, unchanged; atherosclerotic changes and tortuous thoracic; aorta; ; Diminished lung volumes with a small amount of bibasilar atelectasis; ; ; Signed by; Donna Valente MD 11/16/2016 08:12 P; Outcome: 12:37 Discharge ordered by Provider. ef1 12:54 Discharge Assessment: Patient awake, alert and oriented x 3. No cognitive and/or kcs functional deficits noted. Patient verbalized understanding of disposition instructions. Patient awake and alert. patient administered narcotics - no. The following High Risk Discharge criteria are identified: None. Discharged to home ambulatory. Condition: stable. Discharge instructions given to patient, Instructed on discharge instructions, follow up and referral plans. medication usage, Demonstrated understanding of instructions, medications, Pt was receptive of discharge instructions/ teaching. No special radiology studies were completed. Property sent home with patient. 12:57 Patient left the ED. kcs Signatures: Dispatcher [employer] EDMS Sinai Yeung RN RN kcs Sophia, Stacy, Reg Reg gb Fabio, Jonae, Reg Reg lg Gino Braden, MEDIA RELATIONS MANAGER MEDIA RELATIONS MANAGER dd6 Anastasiia Araya, PA-C PA-C ef1 Sonia Falk, MEDIA RELATIONS MANAGER MEDIA RELATIONS MANAGER ar3 Sarah Michaud RN RN hs1 Dannielle Crespo RN RN jc4 Tania Lopez RN RN ead Corrections: (The following items were deleted from the chart) 12:51 11:17 Cardiovascular: Rhythm is sinus rhythm No ectopy. Chest pain is described as hs1 mild, ONLY WHEN SHE COUGHS. is located in STRENUM hs1 Chart Complete MTDD
--- NOTE | 2016-11-18 13:57 | EDDOCDS ---
Physician Documentation [facility] Name: Naya Plascencia Age: 76 yrs Sex: Female : 1940 Arrival Date: 11/16/2016 Time: 10:14 Bed 15 Private MD: DR RODNEY [facility] Disposition: 11/16/16 12:37 Discharged to Home/Self Care. Impression: Acute sinusitis, Acute bronchitis. - Condition is Stable. - Discharge Instructions: Sinusitis, [id number], Acute Bronchitis, [id number]. - Prescriptions for Doxycycline Hyclate 100 mg Oral Tablet - take 1 tablet by ORAL route every 12 hours; 20 tablet. Claritin 10 mg Oral Tablet - take 1 tablet by ORAL route once daily As needed; 30 tablet. - Medication Reconciliation, Local Pharmacy Hours form. - Follow up: [facility]; When: 1 - 2 days; Reason: Recheck today's complaints, Continuance of care. Follow up: Emergency Department; Reason: Worsening of conditions. Follow up: Michael Watkins; When: Call to arrange an appointment; Reason: Further diagnostic work-up, Recheck today's complaints, Continuance of care. - Problem is new. - Symptoms have improved. Historical: - Allergies: Albuterol; HYDRALAZINE; IRON COMPLEX; Lisinopril; Lipitor; Nitrostat; Metformin HCl; Ragweed; PENICILLINS; Sulfa (Sulfonamide Antibiotics); Aspirin; - Home Meds: 1. Lantus 30 units Sub-Q daily 2. Eliquis 5 mg oral tab 1 tab 2 times per day 3. carvedilol 6.25 mg oral tab 2 times per day 4. omeprazole 20 mg Oral cpDR once daily 5. chlorthalidone 25 mg Oral tab once daily 6. acetaminophen 650 mg Oral tab 1 tab as needed - PMHx: polyarthralgia; Hypertension; hyperlipidemia; Diabetes - IDDM: controlled; cerebral amyloid angiopathy; back pain; Atrial Fib; GERD; - PSHx: blood clot removal from right groin; - Social history: Smoking status: Patient states former smoker of tobacco. No barriers to communication noted, The patient speaks fluent Mohawk, Speaks appropriately for age. - Family history: Not pertinent. - : The pt / caregiver states he / she is on anticoagulants: Eliquis Home medication list is obtained from the patient, pill bottles. - Exposure Risk Screening:: None identified. Vital Signs: 11/16 10:17 BP 167 / 85; Pulse 98; Resp 20 S; Temp 98.4(O); Pulse Ox 98% on R/A; Weight 94.35 kg / dd6 208.01 lbs (R); Height 5 ft. 4 in. (162.56 cm) (R); 11:43 BP 123 / 67 (auto/); hs1 11:43 Pulse 62 MON; Pulse Ox 99% ; hs1 12:13 BP 153 / 72 (auto/); hs1 12:13 Pulse 66 MON; Resp 18; Pulse Ox 100% ; hs1 12:42 Pulse 68 MON; Resp 18; Temp 98.3; Pulse Ox 96% ; Pain 8/10; hs1 12:43 BP 146 / 66 (auto/); hs1 10:17 Body Mass Index 35.70 (94.35 kg, 162.56 cm) dd6 MDM: 10:40 ECG WITH READING ER PHYS+CARDIAG ordered. EDMS 11:01 Materials Scientist/Pulse Ox/q 30 min VS ordered. ef1 11:01 IV Saline Lock ordered. ef1 11:01 Oxygen at 4L/Min NC or Home dosage ordered. ef1 11:01 Rhythm Strip to chart ordered. ef1 11:01 Undress patient appropriately for examination ordered. ef1 11:02 Basic Metabolic Profile Ordered. EDMS 11:02 CBC with Diff Ordered. EDMS 11:02 Cardiac Injury Profile Ordered. EDMS 11:02 Troponin Ordered. EDMS 11:02 portable chest Ordered. EDMS 11:29 Financial registration complete. lg 11:30 [facility] Payment Agreement was scanned into [employer] and attached to record. lg 11:50 Basic Metabolic Profile Reviewed. ef1 11:50 CBC with Diff Reviewed. ef1 11:50 Troponin Reviewed. ef1 12:14 Basic Metabolic Profile Reviewed. ef1 12:14 Cardiac Injury Profile Reviewed. ef1 12:14 Troponin Reviewed. ef1 12:36 Doxycycline 100 mg PO once ordered. ef1 14:47 T-Sheet-- Draft Copy was scanned into [employer] and attached to record. gb 14:48 ECG/EKG was scanned into [employer] and attached to record. gb Administered Medications: 12:43 Drug: Doxycycline 100 mg [doxycycline hyclate 100 mg tablet (1 tabs)] Route: PO; hs1 Signatures: Dispatcher [employer] Sinai Edmondson RN RN [facility] Stacy Cortes, Reg Reg gb Melani Mccarthy, Reg Reg lg Anastasiia Araya, JAZMYN ELDRIDGE ef1 Tania Lopez RN RN eaSarah Chester RN hs1 The chart was reviewed and I authenticate all verbal orders and agree with the evaluation and treatment provided.Attachments: 11:30 [facility] Payment Agreement lg 14:47 T-Sheet-- Draft Copy gb 14:48 ECG/EKG gb Chart Complete MTDD
--- NOTE | 2016-11-18 13:57 | EDDOCDS ---
Physician Documentation [facility] Name: Naya Plascencia Age: 76 yrs Sex: Female : 1940 Arrival Date: 11/16/2016 Time: 10:14 Bed 15 Private MD: DR RODNEY [facility] Disposition: 11/16/16 12:37 Discharged to Home/Self Care. Impression: Acute sinusitis, Acute bronchitis. - Condition is Stable. - Discharge Instructions: Sinusitis, Ihod-tr-Ryeg, Acute Bronchitis, Iglx-vr-Klov. - Prescriptions for Doxycycline Hyclate 100 mg Oral Tablet - take 1 tablet by ORAL route every 12 hours; 20 tablet. Claritin 10 mg Oral Tablet - take 1 tablet by ORAL route once daily As needed; 30 tablet. - Medication Reconciliation, Local Pharmacy Hours form. - Follow up: [facility]; When: 1 - 2 days; Reason: Recheck today's complaints, Continuance of care. Follow up: Emergency Department; Reason: Worsening of conditions. Follow up: Michael Watkins; When: Call to arrange an appointment; Reason: Further diagnostic work-up, Recheck today's complaints, Continuance of care. - Problem is new. - Symptoms have improved. Historical: - Allergies: Albuterol; HYDRALAZINE; IRON COMPLEX; Lisinopril; Lipitor; Nitrostat; Metformin HCl; Ragweed; PENICILLINS; Sulfa (Sulfonamide Antibiotics); Aspirin; - Home Meds: 1. Lantus 30 units Sub-Q daily 2. Eliquis 5 mg oral tab 1 tab 2 times per day 3. carvedilol 6.25 mg oral tab 2 times per day 4. omeprazole 20 mg Oral cpDR once daily 5. chlorthalidone 25 mg Oral tab once daily 6. acetaminophen 650 mg Oral tab 1 tab as needed - PMHx: polyarthralgia; Hypertension; hyperlipidemia; Diabetes - IDDM: controlled; cerebral amyloid angiopathy; back pain; Atrial Fib; GERD; - PSHx: blood clot removal from right groin; - Social history: Smoking status: Patient states former smoker of tobacco. No barriers to communication noted, The patient speaks fluent Georgian, Speaks appropriately for age. - Family history: Not pertinent. - : The pt / caregiver states he / she is on anticoagulants: Eliquis Home medication list is obtained from the patient, pill bottles. - Exposure Risk Screening:: None identified. Vital Signs: 11/16 10:17 BP 167 / 85; Pulse 98; Resp 20 S; Temp 98.4(O); Pulse Ox 98% on R/A; Weight 94.35 kg / dd6 208.01 lbs (R); Height 5 ft. 4 in. (162.56 cm) (R); 11:43 BP 123 / 67 (auto/); hs1 11:43 Pulse 62 MON; Pulse Ox 99% ; hs1 12:13 BP 153 / 72 (auto/); hs1 12:13 Pulse 66 MON; Resp 18; Pulse Ox 100% ; hs1 12:42 Pulse 68 MON; Resp 18; Temp 98.3; Pulse Ox 96% ; Pain 8/10; hs1 12:43 BP 146 / 66 (auto/); hs1 10:17 Body Mass Index 35.70 (94.35 kg, 162.56 cm) dd6 MDM: 10:40 ECG WITH READING ER PHYS+CARDIAG ordered. EDMS 11:01 Technical Proposal Writer/Pulse Ox/q 30 min VS ordered. ef1 11:01 IV Saline Lock ordered. ef1 11:01 Oxygen at 4L/Min NC or Home dosage ordered. ef1 11:01 Rhythm Strip to chart ordered. ef1 11:01 Undress patient appropriately for examination ordered. ef1 11:02 Basic Metabolic Profile Ordered. EDMS 11:02 CBC with Diff Ordered. EDMS 11:02 Cardiac Injury Profile Ordered. EDMS 11:02 Troponin Ordered. EDMS 11:02 portable chest Ordered. EDMS 11:29 Financial registration complete. lg 11:30 [facility] Payment Agreement was scanned into [employer] and attached to record. lg 11:50 Basic Metabolic Profile Reviewed. ef1 11:50 CBC with Diff Reviewed. ef1 11:50 Troponin Reviewed. ef1 12:14 Basic Metabolic Profile Reviewed. ef1 12:14 Cardiac Injury Profile Reviewed. ef1 12:14 Troponin Reviewed. ef1 12:36 Doxycycline 100 mg PO once ordered. ef1 14:47 T-Sheet-- Draft Copy was scanned into [employer] and attached to record. gb 14:48 ECG/EKG was scanned into [employer] and attached to record. gb Administered Medications: 12:43 Drug: Doxycycline 100 mg [doxycycline hyclate 100 mg tablet (1 tabs)] Route: PO; hs1 Signatures: Dispatcher [employer] Sinai Edmondson RN RN [facility] Stacy Cortes, Reg Reg gb Melani Mccarthy, Reg Reg lg Anastasiia Araya, JAZMYN ELDRIDGE ef1 Tania Lopez RN RN eaSarah Chester RN hs1 The chart was reviewed and I authenticate all verbal orders and agree with the evaluation and treatment provided.Attachments: 11:30 [facility] Payment Agreement lg 14:47 T-Sheet-- Draft Copy gb 14:48 ECG/EKG gb Chart Complete MTDD
== END 2016-11-16 12:57 | disposition home or self-care (01) ==
LOC: M ED 10:14
DX: J01.90 Acute sinusitis, unspecified (principal); J20.9 Acute bronchitis, unspecified; R07.89 Other chest pain; I48.91 Unspecified atrial fibrillation; K21.9 Gastro-esophageal reflux disease without esophagitis; I10 Essential (primary) hypertension; E78.5 Hyperlipidemia, unspecified; E11.9 Type 2 diabetes mellitus without complications; I68.0 Cerebral amyloid angiopathy; M13.0 Polyarthritis, unspecified; J30.1 Allergic rhinitis due to pollen; Z86.718 Personal history of other venous thrombosis and embolism; Z87.891 Personal history of nicotine dependence; Z79.01 Long term (current) use of anticoagulants; Z79.4 Long term (current) use of insulin; Z79.899 Other long term (current) drug therapy; Z88.0 Allergy status to penicillin; Z88.2 Allergy status to sulfonamides; Z88.6 Allergy status to analgesic agent; Z88.8 Allergy status to other drugs, medicaments and biological substances

== ENCOUNTER 2016-11-19 18:13 | Emergency (ER) | payer MEDICARE, MEDICAID ==
[2016-11-19] MEDS ORDERED: METOCLOPRAMIDE INJ 10MG/2ML VIAL (J2765) As Ordered ONE (19:44)
[2016-11-19 20:18] LABS: BASO % 0.2 % (0.0-1.0); EOS % 1.1 % (0.0-3.0); LARGE UNSTAINED CELL # 0.2 K/mm3 (0.0-0.4); LARGE UNSTAINED CELL % 4.7 % (0.0-4.0); LYMPH % 40.4 % (24.0-44.0); MEAN CORPUSCULAR HEMOGLOBIN 28.1 pg (27.0-33.0); MEAN CORPUSCULAR HGB CONC 34.5 g/dl (32.0-36.5); MEAN CORPUSCULAR VOLUME 81.4 fl (80.0-96.0); MONO # 0.3 K/mm3 (0.0-0.8); MONO % 6.7 % (0.0-5.0); NEUTROPHILS # 2.4 K/mm3 (1.8-7.7); NEUTROPHILS % 46.9 % (36.0-66.0); PLATELET COUNT, AUTOMATED 195 k/mm3 (150-450); RED CELL DISTRIBUTION WIDTH 14.1 % (11.5-14.5)
[2016-11-19 21:19] LABS: CALCIUM LEVEL 8.2 MG/DL (8.8-10.2); CREATININE FOR GFR 1.57 MG/DL (0.55-1.02); GLOMERULAR FILTRATION RATE 41.4 (>39); POTASSIUM SERUM 3.7 MEQ/L (3.5-5.1)
--- NOTE | 2016-11-19 21:29 | ECGEPIP ---
Stationary ECG Study [facility] - ED Test Date: 2016-11-19 Pat Name: VIVIANA PEÑALOZA Department: Room: - Gender: F Reference Assistant: bashir : 1940 Requested By: Chloe Boone Order Number: [id number] Reading MD: Barrington Joshua Measurements Intervals [place] Rate: 61 P: 40 SD: 170 QRS: 11 QRSD: 94 T: 208 QT: 399 QTc: 402 Interpretive Statements SINUS RHYTHM LEFT VENTRICULAR HYPERTROPHY AND ST-T CHANGE Electronically Signed On 11-19-2016 21:29:21 EST by Barrington Joshua
--- NOTE | 2016-11-20 01:38 | EDDOCDS ---
Physician Documentation [facility] Name: Naya Plascencia Age: 76 yrs Sex: Female : 1940 Arrival Date: 11/19/2016 Time: 18:13 Bed TR1 Private MD: Disposition: 11/20/16 01:03 Discharged to Home/Self Care. Impression: Dehydration. - Condition is Stable. - Discharge Instructions: Dehydration, Elderly, Rehydration, Elderly. - Medication Reconciliation, Local Pharmacy Hours form. - Follow up: Private Physician; When: Call to arrange an appointment; Reason: Continuance of care. - Problem is an acute exacerbation. - Symptoms have improved. Historical: - Allergies: Albuterol; Aspirin; HYDRALAZINE; IRON COMPLEX; Lipitor; Lisinopril; Metformin HCl; Nitrostat; PENICILLINS; Ragweed; Sulfa (Sulfonamide Antibiotics); - Home Meds: 1. carvedilol 3.125 mg oral tab 2 times per day 2. colchicine 0.6 mg Oral tab 1 tab once daily 3. doxycycline hyclate 100 mg Oral cap 1 cap 2 times per day 4. felodipine 10 mg oral Tb24 1 tab once daily 5. febuxostat 40 mg oral tab 1 tab once daily 6. furosemide 40 mg Oral tab 1 tab once daily 7. Lantus 100 unit/mL Sub-Q soln 30 unit daily 8. meclizine 25 mg Oral tab 1 tab as needed 9. omeprazole 20 mg Oral cpDR once daily 10. pravastatin 20 mg oral tab once daily 11. prednisone 20 mg Oral tab 2 tabs once daily 12. Januvia 50 mg oral tab once daily 13. tramadol 50 mg Oral tab 1 tab every 6 hours as needed 14. warfarin 5 mg Oral tab 1 tab once daily 15. Flexeril 10 mg Oral tab 1 tab 3 times per day as needed - PMHx: Atrial Fib; polyarthralgia; Hypertension; hyperlipidemia; GERD; Diabetes - IDDM: controlled; cerebral amyloid angiopathy; back pain; - PSHx: blood clot removal from right groin; - Social history: Smoking status: Patient states was never smoker of tobacco. No barriers to communication noted, The patient speaks fluent Kinyarwanda, Speaks appropriately for age. - Family history: Not pertinent. - : The pt / caregiver states he / she is on anticoagulants: coumadin. Home medication list is obtained from the facility MAR. - Exposure Risk Screening:: None identified. Vital Signs: 11/19 18:39 BP 180 / 83; Pulse 66; Resp 18; Temp 98.3; Pulse Ox 95% on R/A; Weight 94.35 kg / kc3 208.01 lbs; Height 5 ft. 7 in. (170.18 cm); Pain 0/10; 18:57 BP 146 / 74 (auto/); cf2 18:58 Pulse 60 MON; Pulse Ox 95% ; cf2 19:27 BP 146 / 95 (auto/); cf2 19:28 Pulse 60 MON; Pulse Ox 94% ; cf2 19:57 BP 138 / 74 (auto/); cf2 19:58 Pulse 58 MON; Pulse Ox 95% ; cf2 20:27 BP 132 / 77 (auto/); cf2 20:28 Pulse 74 MON; Pulse Ox 96% ; cf2 20:34 Pulse 82 MON; Pulse Ox 95% ; cf2 20:39 Pulse 68 MON; Pulse Ox 94% ; cf2 20:40 BP 132 / 78 Sitting; Pulse 67; Pulse Ox 94% ; cf2 20:40 BP 130 / 71 Standing; Pulse 64; Pulse Ox 94% ; cf2 20:40 BP 128 / 71 Supine; Pulse 62; cf2 20:45 Pulse 64 MON; Pulse Ox 94% ; cf2 20:57 BP 163 / 82 (auto/); cf2 20:58 Pulse 64 MON; Pulse Ox 95% ; cf2 21:02 Pulse 64 MON; Pulse Ox 94% ; cf2 21:08 Pulse 64 MON; Pulse Ox 95% ; cf2 21:13 Pulse 66 MON; Pulse Ox 93% ; cf2 21:19 Pulse 64 MON; Pulse Ox 97% ; cf2 21:26 Pulse 70 MON; Pulse Ox 95% ; cf2 21:31 Pulse 64 MON; Pulse Ox 95% ; cf2 21:38 Pulse 68 MON; Pulse Ox 95% ; cf2 23:27 BP 150 / 77 (auto/); cf2 23:28 Pulse 60 MON; Pulse Ox 96% ; cf2 23:28 Temp 98.1; Pain 0/10; cf2 23:35 BP 194 / 81 (auto/); cf2 23:36 Pulse 72 MON; Pulse Ox 92% ; cf2 11/20 01:04 Pulse 58 MON; Pulse Ox 96% ; cf2 01:04 BP 147 / 81 (auto/); cf2 01:07 BP 147 / 81; Pulse 70; Resp 20; Temp 97.7(O); Pulse Ox 97% on R/A; Pain 0/10; jmv 01:13 Pulse 58 MON; Pulse Ox 95% ; cf2 01:17 Pulse 58 MON; Pulse Ox 93% ; cf2 11/19 18:39 Body Mass Index 32.58 (94.35 kg, 170.18 cm) kc3 MDM: 11/19 18:35 Leather Polisher/Pulse Ox/q 30 min VS ordered. sd1 18:35 Orthostatic VS ordered. sd1 18:35 IV Saline Lock ordered. sd1 18:36 ECG WITH READING ER PHYS+CARDIAG ordered. EDMS 18:37 CBC with Diff Ordered. EDMS 18:37 MED Profile Ordered. EDMS 18:37 Type & Screen Ordered. EDMS 19:42 Metoclopramide 10 mg IV at 40 mg/hr once over 15 mins ordered. mm11 19:42 LR Solution 1000 ml IV at bolus once ordered. mm11 19:43 Chest, 2 View (pa\E\lat) Ordered. EDMS 19:43 UA Ordered. EDMS 19:43 Urine Culture Ordered. EDMS 21:10 Financial registration complete. zo 21:19 CBC with Diff Reviewed. mm11 21:19 UA Reviewed. mm11 21:19 Type & Screen Reviewed. mm11 21:27 [facility] Payment Agreement was scanned into Stat and attached to record. gjb 21:52 MED Profile Reviewed. mm11 21:52 Type & Screen Reviewed. mm11 11/20 00:32 EKG-ADULT Reviewed. mm11 Administered Medications: 11/19 20:06 Drug: Metoclopramide 10 mg [metoclopramide 5 mg/mL injection solution] Route: IV; Rate: cf2 40 mg/hr; Infused Over: 15 mins; Site: left antecubital; 21:42 Follow up: Response: Pain is decreased cf2 20:06 Drug: LR 1000 ml [lactated ringers intravenous solution] Route: IV; Rate: bolus; Site: cf2 left antecubital; 21:42 Follow up: Response: No significant change. cf2 Signatures: Dispatcher [employer] EDMS Chloe Boone MD MD sd1 Wallace Oconnell Matthew, DO mm11 Joanna Gilmore,RN RN kc3 Stefani Lagosb Cami Miller RN RN cf2 The chart was reviewed and I authenticate all verbal orders and agree with the evaluation and treatment provided.Attachments: 21:27 [facility] Payment Agreement alan MTDD
--- NOTE | 2016-11-20 01:38 | EDDOCDS ---
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 kc3 Transition of care: patient was not received from another setting of care. Care prior to arrival: Medications administered prior to arrival: Zofran 4 mg IV given by EMS en route. 18:22 Acuity: PARMINDER Level 3 kc3 18:22 Method Of Arrival: Ambulance kc3 18:28 Adult Sepsis Screening: The patient does not have new or worsening altered mentation. kc3 Patient's respiratory rate is less than 22. Systolic blood pressure is greater than 100. Patient has a qSOFA score of 0- Negative Sepsis Screen. Suicide/Homicide risk assessment- the patient denies having any suicidal and/or homicidal ideations and does not present with any other emotional, behavioral or mental health complaints. 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 Triage Assessment: 18:40 General: Appears in no apparent distress, comfortable, Behavior is appropriate for age, kc3 cooperative. Pain: Denies pain. The patient is triaged at the bedside. See Assessment in Nurses Notes section of ED record. The patient is triaged at the bedside. See Assessment in Nurses Notes section of ED record. Neurological: Level of Consciousness is awake, alert, obeys commands, Oriented to person, place, time. Neurological: Reports dizziness. Cardiovascular: Rhythm is sinus rhythm. Respiratory: Airway is patent Respiratory effort is even, unlabored. GI: Reports nausea. Derm: Skin is normal. Musculoskeletal: Circulation, motion, and sensation intact. Historical: - Allergies: Albuterol; Aspirin; HYDRALAZINE; IRON COMPLEX; Lipitor; Lisinopril; Metformin HCl; Nitrostat; PENICILLINS; Ragweed; Sulfa (Sulfonamide Antibiotics); - Home Meds: 1. carvedilol 3.125 mg oral tab 2 times per day 2. colchicine 0.6 mg Oral tab 1 tab once daily 3. doxycycline hyclate 100 mg Oral cap 1 cap 2 times per day 4. felodipine 10 mg oral Tb24 1 tab once daily 5. febuxostat 40 mg oral tab 1 tab once daily 6. furosemide 40 mg Oral tab 1 tab once daily 7. Lantus 100 unit/mL Sub-Q soln 30 unit daily 8. meclizine 25 mg Oral tab 1 tab as needed 9. omeprazole 20 mg Oral cpDR once daily 10. pravastatin 20 mg oral tab once daily 11. prednisone 20 mg Oral tab 2 tabs once daily 12. Januvia 50 mg oral tab once daily 13. tramadol 50 mg Oral tab 1 tab every 6 hours as needed 14. warfarin 5 mg Oral tab 1 tab once daily 15. Flexeril 10 mg Oral tab 1 tab 3 times per day as needed - PMHx: Atrial Fib; polyarthralgia; Hypertension; hyperlipidemia; GERD; Diabetes - IDDM: controlled; cerebral amyloid angiopathy; back pain; - PSHx: blood clot removal from right groin; - Social history: Smoking status: Patient states was never smoker of tobacco. No barriers to communication noted, The patient speaks fluent Swazi, Speaks appropriately for age. - Family history: Not pertinent. - : The pt / caregiver states he / she is on anticoagulants: coumadin. Home medication list is obtained from the facility DEC. - Exposure Risk Screening:: None identified. Screenin:41 Screening information is obtained from the patient. Fall risk: At risk due to kc3 dizziness. Assistance ADL's: requires no assistance with activities of daily living. Abuse/DV Screen: The patient / caregiver reports he/she is: not in a situation that causes fear, pain or injury. Nutritional screening: No deficits noted. home support is adequate. 18:42 Advance Directives: Currently, there is. kc3 Assessment: 18:41 General: See triage for initial assessment. . kc3 21:42 Adult Sepsis Screening: The patient does not have new or worsening altered mentation. cf2 Patient's respiratory rate is less than 22. Systolic blood pressure is greater than 100. Patient has a qSOFA score of 0- Negative Sepsis Screen. Pain: Denies pain. Neurological: No deficits noted. EENT: No deficits noted. Cardiovascular: No deficits noted. Respiratory: No deficits noted. GI: No deficits noted. : No deficits noted. Derm: No deficits noted. Musculoskeletal: No deficits noted. 22:10 Reassessment: Patient denies pain at this time. Patient states feeling better. Patient cf2 states symptoms have improved. Patient eating dinner tray. 11/20 01:35 Reassessment: Patient appears in no apparent distress at this time. Patient denies pain cf2 at this time. Patient states feeling better. Patient states symptoms have improved. Vital Signs: 11/19 18:39 BP 180 / 83; Pulse 66; Resp 18; Temp 98.3; Pulse Ox 95% on R/A; Weight 94.35 kg; Height kc3 5 ft. 7 in. (170.18 cm); Pain 0/10; 18:57 BP 146 / 74 (auto/); cf2 18:58 Pulse 60 MON; Pulse Ox 95% ; cf2 19:27 BP 146 / 95 (auto/); cf2 19:28 Pulse 60 MON; Pulse Ox 94% ; cf2 19:57 BP 138 / 74 (auto/); cf2 19:58 Pulse 58 MON; Pulse Ox 95% ; cf2 20:27 BP 132 / 77 (auto/); cf2 20:28 Pulse 74 MON; Pulse Ox 96% ; cf2 20:34 Pulse 82 MON; Pulse Ox 95% ; cf2 20:39 Pulse 68 MON; Pulse Ox 94% ; cf2 20:40 BP 132 / 78 Sitting; Pulse 67; Pulse Ox 94% ; cf2 20:40 BP 130 / 71 Standing; Pulse 64; Pulse Ox 94% ; cf2 20:40 BP 128 / 71 Supine; Pulse 62; cf2 20:45 Pulse 64 MON; Pulse Ox 94% ; cf2 20:57 BP 163 / 82 (auto/); cf2 20:58 Pulse 64 MON; Pulse Ox 95% ; cf2 21:02 Pulse 64 MON; Pulse Ox 94% ; cf2 21:08 Pulse 64 MON; Pulse Ox 95% ; cf2 21:13 Pulse 66 MON; Pulse Ox 93% ; cf2 21:19 Pulse 64 MON; Pulse Ox 97% ; cf2 21:26 Pulse 70 MON; Pulse Ox 95% ; cf2 21:31 Pulse 64 MON; Pulse Ox 95% ; cf2 21:38 Pulse 68 MON; Pulse Ox 95% ; cf2 23:27 BP 150 / 77 (auto/); cf2 23:28 Pulse 60 MON; Pulse Ox 96% ; cf2 23:28 Temp 98.1; Pain 0/10; cf2 23:35 BP 194 / 81 (auto/); cf2 23:36 Pulse 72 MON; Pulse Ox 92% ; cf2 11/20 01:04 Pulse 58 MON; Pulse Ox 96% ; cf2 01:04 BP 147 / 81 (auto/); cf2 01:07 BP 147 / 81; Pulse 70; Resp 20; Temp 97.7(O); Pulse Ox 97% on R/A; Pain 0/10; jmv 01:13 Pulse 58 MON; Pulse Ox 95% ; cf2 01:17 Pulse 58 MON; Pulse Ox 93% ; cf2 11/19 18:39 Body Mass Index 32.58 (94.35 kg, 170.18 cm) 3 Vitals: 11/19 18:39 Log In Time N/A - ambulance arrival. 3 ED Course: 18:14 Patient visited by Angela Johnston, Electro Mechanical Assembler. deg 18:14 Porsha Sow, RN is Primary Nurse. deg 18:14 Patient moved to Waiting deg 18:14 Patient moved to 8 deg 18:23 Triage Initiated kc3 18:42 The patient / caregiver is instructed regarding the plan of care and ED course. kc3 18:42 Maintain field IV. Dressing intact. Site clean & dry. Gauge & site: 20 left AC. kc3 18:46 Patient visited by Anh Calzada PCA. jlf 18:46 EKG done. (by ED staff). Reviewed by Iliana HUFFMAN. jlf 18:50 Patient visited by Anh Calzada PCA. jlf 19:14 Sim Rasheed DO is Attending Physician. mm11 19:14 Patient visited by Sim Rasheed DO. mm11 19:17 Primary Nurse role handed off by Porsha Sow, RN cf2 19:17 Cami Miller,RN is Primary Nurse. cf2 19:17 Patient visited by Cami Miller,RN. cf2 19:41 Patient visited by Sim Rasheed DO. mm11 20:15 Patient visited by Cami Miller,SHAMIKA. cf2 20:31 Patient visited by Cami Miller,RN. cf2 20:40 Patient has correct armband on for positive identification. Placed in gown. Bed in low cf2 position. Call light in reach. Side rails up X 1. Side rails up X2. hospital monitor on. Pulse ox on. NIBP on. Property :Personal belongings accompany Pt. Door closed. Noise minimized. Visitors limited. Lights dimmed. Moved to private room. Verbal reassurance given. Warm blanket given. Pillow given. Head of bed elevated. 21:17 Patient visited by Cami Miller,SHAMIKA. cf2 21:27 [facility] Payment Agreement was scanned into [employer] and attached to record. gjb 21:41 Patient visited by Cami Miller RN. cf2 21:42 Patient visited by Mohini Harry, Electro Mechanical Assembler. jlm 21:42 Assisted to bathroom. jlm 21:47 No procedures done that require assistance. cf2 21:59 EKG-ADULT Returned. EDMS 22:10 Patient visited by Cami Miller RN. cf2 11/20 00:03 Patient visited by Cami Miller RN. cf2 01:08 Patient visited by Lanre Reeder PCA. jmv 01:33 Patient moved to [place] [id number] 01:35 Patient visited by Cami Miller RN. cf2 Administered Medications: 11/19 20:06 Drug: Metoclopramide 10 mg [metoclopramide 5 mg/mL injection solution] Route: IV; Rate: cf2 40 mg/hr; Infused Over: 15 mins; Site: left antecubital; 21:42 Follow up: Response: Pain is decreased cf2 20:06 Drug: LR 1000 ml [lactated ringers intravenous solution] Route: IV; Rate: bolus; Site: cf2 left antecubital; 21:42 Follow up: Response: No significant change. cf2 Order Results: Lab Order: CBC with Diff; SPEC'M 11/19/16 19:47 Test: WHITE BLOOD COUNT; Value: 5.0; Range: 4.0-10.0; Units: K/mm3; Status: F Test: RED BLOOD COUNT; Value: 4.26; Range: 4.00-5.40; Units: M/mm3; Status: F Test: HEMOGLOBIN; Value: 12.0; Range: 12.0-16.0; Units: g/dl; Status: F Test: HEMATOCRIT; Value: 34.7; Range: 36.0-47.0; Abnormal: Below low normal; Units: %; Status: F Test: MEAN CORPUSCULAR VOLUME; Value: 81.4; Range: 80.0-96.0; Units: fl; Status: F Test: MEAN CORPUSCULAR HEMOGLOBIN; Value: 28.1; Range: 27.0-33.0; Units: pg; Status: F Test: MEAN CORPUSCULAR HGB CONC; Value: 34.5; Range: 32.0-36.5; Units: g/dl; Status: F Test: RED CELL DISTRIBUTION WIDTH; Value: 14.1; Range: 11.5-14.5; Units: %; Status: F Test: PLATELET COUNT, AUTOMATED; Value: 195; Range: 150-450; Units: k/mm3; Status: F Test: NEUTROPHILS %; Value: 46.9; Range: 36.0-66.0; Units: %; Status: F Test: LYMPH %; Value: 40.4; Range: 24.0-44.0; Units: %; Status: F Test: MONO %; Value: 6.7; Range: 0.0-5.0; Abnormal: Above high normal; Units: %; Status: F Test: EOS %; Value: 1.1; Range: 0.0-3.0; Units: %; Status: F Test: BASO %; Value: 0.2; Range: 0.0-1.0; Units: %; Status: F Test: LARGE UNSTAINED CELL %; Value: 4.7; Range: 0.0-4.0; Abnormal: Above high normal; Units: %; Status: F Test: NEUTROPHILS #; Value: 2.4; Range: 1.8-7.7; Units: K/mm3; Status: F Test: LYMPH #; Value: 2.0; Range: 1.5-4.5; Units: K/mm3; Status: F Test: MONO #; Value: 0.3; Range: 0.0-0.8; Units: K/mm3; Status: F Test: EOS #; Value: 0.0; Range: 0.0-0.50; Units: K/mm3; Status: F Test: BASO #; Value: 0.0; Range: 0.0-0.2; Units: K/mm3; Status: F Test: LARGE UNSTAINED CELL #; Value: 0.2; Range: 0.0-0.4; Units: K/mm3; Status: F Lab Order: MED Profile; SPEC11/19/16 20:42 Test: GLUCOSE, FASTING; Value: 187; Range: 83-110; Abnormal: Above high normal; Units: MG/DL; Status: F Test: BLOOD UREA NITROGEN; Value: 26; Range: 7-18; Abnormal: Above high normal; Units: MG/DL; Status: F Test: CREATININE FOR GFR; Value: 1.57; Range: 0.55-1.02; Abnormal: Above high normal; Units: MG/DL; Status: F Test: GLOMERULAR FILTRATION RATE; Value: 41.4; Range: >39; Status: F Test: SODIUM LEVEL; Value: 134; Range: 136-145; Abnormal: Below low normal; Units: MEQ/L; Status: F Test: POTASSIUM SERUM; Value: 3.7; Range: 3.5-5.1; Units: MEQ/L; Status: F Test: CHLORIDE LEVEL; Value: 101; Range: 98-107; Units: MEQ/L; Status: F Test: CARBON DIOXIDE LEVEL; Value: 26; Range: 21-32; Units: MEQ/L; Status: F Test: ANION GAP; Value: 7; Range: 8-16; Abnormal: Below low normal; Units: MEQ/L; Status: F Test: CALCIUM LEVEL; Value: 8.2; Range: 8.8-10.2; Abnormal: Below low normal; Units: MG/DL; Status: F Test Note: ; Units are mL/min/1.73 m2 Chronic Kidney Disease Staging per NKF: Stage I & II GFR >=60 Normal to Mildly Decreased Stage III GFR 30-59 Moderately Decreased Stage IV GFR 15-29 Severely Decreased Stage V GFR <15 Very Little GFR Left ESRD GFR <15 on CIGAR HEAD HOLER Lab Order: Type & Screen; 11/19/16 20:42 Test: BLOOD TYPE; Value: B POS; Status: F Test: AB SCREEN (INDIRECT JULIO)GEL; Value: NEGATIVE; Status: F Lab Order: UA; SPEC11/19/16 19:47 Test: APPEARANCE, URINE; Value: HAZY; Range: CLEAR; Status: F Test: COLOR, URINE; Value: YELLOW; Range: YELLOW; Status: F Test: PH,URINE; Value: 5.0; Range: 5.0-9.0; Units: UNITS; Status: F Test: SPECIFIC GRAVITY URINE AUTO; Value: 1.011; Range: 1.002-1.035; Status: F Test: PROTEIN, URINE AUTO; Value: 2+; Range: NEGATIVE; Abnormal: Above high normal; Units: mg/dL; Status: F Test: GLUCOSE, URINE (UA) AUTO; Value: NEGATIVE; Range: NEGATIVE; Units: mg/dL; Status: F Test: KETONE, URINE AUTO; Value: NEGATIVE; Range: NEGATIVE; Units: mg/dL; Status: F Test: UROBILINOGEN, URINE AUTO; Value: 0.2; Range: 0.0-2.0; Units: mg/dL; Status: F Test: BILIRUBIN, URINE AUTO; Value: NEGATIVE; Range: NEGATIVE; Status: F Test: NITRITE, URINE AUTO; Value: NEGATIVE; Range: NEGATIVE; Status: F Test: LEUKOCYTE ESTERASE, URINE AUTO; Value: TRACE; Range: NEGATIVE; Abnormal: Above high normal; Status: F Test: BLOOD, URINE BLOOD; Value: NEGATIVE; Range: NEGATIVE; Status: F Test: WBC, URINE AUTO; Value: 2; Range: 0-3; Units: /HPF; Status: F Test: RBC, URINE AUTO; Value: 3; Range: 0-3; Units: /HPF; Status: F Test: BACTERIA, URINE AUTO; Value: 1+; Range: NEGATIVE; Abnormal: Above high normal; Status: F Test: SQUAMOUS EPITHELIAL CELL UR AU; Value: 3; Range: 0-6; Units: /HPF; Status: F Test: MUCUS, URINE; Value: SMALL; Range: NEGATIVE; Status: F Test: HYALINE CAST, URINE AUTO; Value: 4; Range: 0-1; Units: /LPF; Status: F Radiology Order: EKG-ADULT Test: EKG-ADULT REASON FOR EXAMINATION: dizzy; Stationary ECG [facility]; [facility]; ; Test Date: 2016-11-19; Pat Name: NAYA PEÑALOZA Department:; Room: -; Gender: F Freight Representative: bashir; : 1940 Requested By: Chloe Boone; Order Number: [id number] Reading MD: Barrington Joshua; Measurements; Intervals [place]; Rate: 61 P: 40; VT: 170 QRS: 11; QRSD: 94 T: 208; QT: 399; QTc: 402; Interpretive Statements; SINUS RHYTHM; LEFT VENTRICULAR HYPERTROPHY AND ST-T CHANGE; ; Electronically Signed On 11-19-2016 21:29:21 EST by Barrington Joshua; Outcome: 23:28 Discharge Assessment: Patient awake, alert and oriented x 3. No cognitive and/or cf2 functional deficits noted. Patient verbalized understanding of disposition instructions. Patient awake and alert. Oriented to person, place and time. patient administered narcotics - no. The following High Risk Discharge criteria are identified: None. Discharged to home ambulatory. Condition: good Condition: stable Condition: improved. Discharge instructions given to patient. No special radiology studies were completed. 11/20 01:03 Discharge ordered by Provider. mm11 01:37 Patient left the ED. cf2 Signatures: Dispatcher [employer] EDMS Angela Johnston, Electro Mechanical Assembler Unit deg Sim Rasheed, DO DO mm11 Nimco Mccloud, RN RN [id number] Anh Calzada, PHOTOTYPESETTER OPERATOR PHOTOTYPESETTER OPERATOR jlf Mohini Harry, Electro Mechanical Assembler Unit Joanna Franco,RN RN [id number] Stefani Lagos ChristinaRN RN cf2 Lanre Reeder, PHOTOTYPESETTER OPERATOR PHOTOTYPESETTER OPERATOR jmv MTDD
--- NOTE | 2016-11-20 02:30 | REP ---
Clinical: Acute cough . Comparison: 11/16/2016 . Technique: PA and lateral. Findings: The mediastinum and cardiac silhouette are normal. The lung trujillo are clear and without acute consolidation, effusion, or pneumothorax. The skeletal structures are intact and normal. Impression: 1. No acute cardiopulmonary process. Signed by Onel Ragsdale MD 11/20/2016 02:21 A
--- NOTE | 2016-11-22 02:39 | EDDOCDS ---
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 kc3 Transition of care: patient was not received from another setting of care. Care prior to arrival: Medications administered prior to arrival: Zofran 4 mg IV given by EMS en route. 18:22 Acuity: PARMINDER Level 3 kc3 18:22 Method Of Arrival: Ambulance kc3 18:28 Adult Sepsis Screening: The patient does not have new or worsening altered mentation. kc3 Patient's respiratory rate is less than 22. Systolic blood pressure is greater than 100. Patient has a qSOFA score of 0- Negative Sepsis Screen. Suicide/Homicide risk assessment- the patient denies having any suicidal and/or homicidal ideations and does not present with any other emotional, behavioral or mental health complaints. Status: Patient is not a digital service engineer or dependent. Triage Assessment: 18:40 General: Appears in no apparent distress, comfortable, Behavior is appropriate for age, kc3 cooperative. Pain: Denies pain. The patient is triaged at the bedside. See Assessment in Nurses Notes section of ED record. The patient is triaged at the bedside. See Assessment in Nurses Notes section of ED record. Neurological: Level of Consciousness is awake, alert, obeys commands, Oriented to person, place, time. Neurological: Reports dizziness. Cardiovascular: Rhythm is sinus rhythm. Respiratory: Airway is patent Respiratory effort is even, unlabored. GI: Reports nausea. Derm: Skin is normal. Musculoskeletal: Circulation, motion, and sensation intact. Historical: - Allergies: Albuterol; Aspirin; HYDRALAZINE; IRON COMPLEX; Lipitor; Lisinopril; Metformin HCl; Nitrostat; PENICILLINS; Ragweed; Sulfa (Sulfonamide Antibiotics); - Home Meds: 1. carvedilol 3.125 mg oral tab 2 times per day 2. colchicine 0.6 mg Oral tab 1 tab once daily 3. doxycycline hyclate 100 mg Oral cap 1 cap 2 times per day 4. felodipine 10 mg oral Tb24 1 tab once daily 5. febuxostat 40 mg oral tab 1 tab once daily 6. furosemide 40 mg Oral tab 1 tab once daily 7. Lantus 100 unit/mL Sub-Q soln 30 unit daily 8. meclizine 25 mg Oral tab 1 tab as needed 9. omeprazole 20 mg Oral cpDR once daily 10. pravastatin 20 mg oral tab once daily 11. prednisone 20 mg Oral tab 2 tabs once daily 12. Januvia 50 mg oral tab once daily 13. tramadol 50 mg Oral tab 1 tab every 6 hours as needed 14. warfarin 5 mg Oral tab 1 tab once daily 15. Flexeril 10 mg Oral tab 1 tab 3 times per day as needed - PMHx: Atrial Fib; polyarthralgia; Hypertension; hyperlipidemia; GERD; Diabetes - IDDM: controlled; cerebral amyloid angiopathy; back pain; - PSHx: blood clot removal from right groin; - Social history: Smoking status: Patient states was never smoker of tobacco. No barriers to communication noted, The patient speaks fluent Ecuadorean, Speaks appropriately for age. - Family history: Not pertinent. - : The pt / caregiver states he / she is on anticoagulants: coumadin. Home medication list is obtained from the facility DEC. - Exposure Risk Screening:: None identified. Screenin:41 Screening information is obtained from the patient. Fall risk: At risk due to kc3 dizziness. Assistance ADL's: requires no assistance with activities of daily living. Abuse/DV Screen: The patient / caregiver reports he/she is: not in a situation that causes fear, pain or injury. Nutritional screening: No deficits noted. home support is adequate. 18:42 Advance Directives: Currently, there is. kc3 Assessment: 18:41 General: See triage for initial assessment. . kc3 21:42 Adult Sepsis Screening: The patient does not have new or worsening altered mentation. cf2 Patient's respiratory rate is less than 22. Systolic blood pressure is greater than 100. Patient has a qSOFA score of 0- Negative Sepsis Screen. Pain: Denies pain. Neurological: No deficits noted. EENT: No deficits noted. Cardiovascular: No deficits noted. Respiratory: No deficits noted. GI: No deficits noted. : No deficits noted. Derm: No deficits noted. Musculoskeletal: No deficits noted. 22:10 Reassessment: Patient denies pain at this time. Patient states feeling better. Patient cf2 states symptoms have improved. Patient eating dinner tray. 11/20 01:35 Reassessment: Patient appears in no apparent distress at this time. Patient denies pain cf2 at this time. Patient states feeling better. Patient states symptoms have improved. Vital Signs: 11/19 18:39 BP 180 / 83; Pulse 66; Resp 18; Temp 98.3; Pulse Ox 95% on R/A; Weight 94.35 kg; Height kc3 5 ft. 7 in. (170.18 cm); Pain 0/10; 18:57 BP 146 / 74 (auto/); cf2 18:58 Pulse 60 MON; Pulse Ox 95% ; cf2 19:27 BP 146 / 95 (auto/); cf2 19:28 Pulse 60 MON; Pulse Ox 94% ; cf2 19:57 BP 138 / 74 (auto/); cf2 19:58 Pulse 58 MON; Pulse Ox 95% ; cf2 20:27 BP 132 / 77 (auto/); cf2 20:28 Pulse 74 MON; Pulse Ox 96% ; cf2 20:34 Pulse 82 MON; Pulse Ox 95% ; cf2 20:39 Pulse 68 MON; Pulse Ox 94% ; cf2 20:40 BP 132 / 78 Sitting; Pulse 67; Pulse Ox 94% ; cf2 20:40 BP 130 / 71 Standing; Pulse 64; Pulse Ox 94% ; cf2 20:40 BP 128 / 71 Supine; Pulse 62; cf2 20:45 Pulse 64 MON; Pulse Ox 94% ; cf2 20:57 BP 163 / 82 (auto/); cf2 20:58 Pulse 64 MON; Pulse Ox 95% ; cf2 21:02 Pulse 64 MON; Pulse Ox 94% ; cf2 21:08 Pulse 64 MON; Pulse Ox 95% ; cf2 21:13 Pulse 66 MON; Pulse Ox 93% ; cf2 21:19 Pulse 64 MON; Pulse Ox 97% ; cf2 21:26 Pulse 70 MON; Pulse Ox 95% ; cf2 21:31 Pulse 64 MON; Pulse Ox 95% ; cf2 21:38 Pulse 68 MON; Pulse Ox 95% ; cf2 23:27 BP 150 / 77 (auto/); cf2 23:28 Pulse 60 MON; Pulse Ox 96% ; cf2 23:28 Temp 98.1; Pain 0/10; cf2 23:35 BP 194 / 81 (auto/); cf2 23:36 Pulse 72 MON; Pulse Ox 92% ; cf2 11/20 01:04 Pulse 58 MON; Pulse Ox 96% ; cf2 01:04 BP 147 / 81 (auto/); cf2 01:07 BP 147 / 81; Pulse 70; Resp 20; Temp 97.7(O); Pulse Ox 97% on R/A; Pain 0/10; jmv 01:13 Pulse 58 MON; Pulse Ox 95% ; cf2 01:17 Pulse 58 MON; Pulse Ox 93% ; cf2 11/19 18:39 Body Mass Index 32.58 (94.35 kg, 170.18 cm) 3 Vitals: 11/19 18:39 Log In Time N/A - ambulance arrival. 3 ED Course: 18:14 Patient visited by Angela Johnston, Youth Career Specialist. deg 18:14 Porsha Sow, RN is Primary Nurse. deg 18:14 Patient moved to Waiting deg 18:14 Patient moved to 8 deg 18:23 Triage Initiated kc3 18:42 The patient / caregiver is instructed regarding the plan of care and ED course. kc3 18:42 Maintain field IV. Dressing intact. Site clean & dry. Gauge & site: 20 left AC. kc3 18:46 Patient visited by Anh Calzada PCA. jlf 18:46 EKG done. (by ED staff). Reviewed by Iliana HUFFMAN. jlf 18:50 Patient visited by Anh Calzada PCA. jlf 19:14 Sim Rasheed DO is Attending Physician. mm11 19:14 Patient visited by Sim Rasheed DO. mm11 19:17 Primary Nurse role handed off by Porsha Sow, RN cf2 19:17 Cami Miller,RN is Primary Nurse. cf2 19:17 Patient visited by Cami Miller,RN. cf2 19:41 Patient visited by Sim Rasheed DO. mm11 20:15 Patient visited by Cami Miller,SHAMIKA. cf2 20:31 Patient visited by Cami Miller,RN. cf2 20:40 Patient has correct armband on for positive identification. Placed in gown. Bed in low cf2 position. Call light in reach. Side rails up X 1. Side rails up X2. oracle programmer analyst on. Pulse ox on. NIBP on. Property :Personal belongings accompany Pt. Door closed. Noise minimized. Visitors limited. Lights dimmed. Moved to private room. Verbal reassurance given. Warm blanket given. Pillow given. Head of bed elevated. 21:17 Patient visited by Cami Miller,SHAMIKA. cf2 21:27 [facility] Payment Agreement was scanned into [employer] and attached to record. gjb 21:41 Patient visited by Cami Miller,SHAMIKA. cf2 21:42 Patient visited by Mohini Harry, Youth Career Specialist. jlm 21:42 Assisted to bathroom. jlm 21:47 No procedures done that require assistance. cf2 21:59 EKG-ADULT Returned. EDMS 22:10 Patient visited by Cami Miller RN. cf2 11/20 00:03 Patient visited by Cami Miller RN. cf2 01:08 Patient visited by Lanre Reeder PCA. jmv 01:33 Patient moved to [place] [id number] 01:35 Patient visited by Cami Miller RN. cf2 02:38 Chest, 2 View (pa\E\lat) Returned. EDMS 11:12 T-Sheet-- Draft Copy was scanned into [employer] and attached to record. gb 11:12 ECG/EKG was scanned into [employer] and attached to record. gb Administered Medications: 11/19 20:06 Drug: Metoclopramide 10 mg [metoclopramide 5 mg/mL injection solution] Route: IV; Rate: cf2 40 mg/hr; Infused Over: 15 mins; Site: left antecubital; 21:42 Follow up: Response: Pain is decreased cf2 20:06 Drug: LR 1000 ml [lactated ringers intravenous solution] Route: IV; Rate: bolus; Site: cf2 left antecubital; 21:42 Follow up: Response: No significant change. cf2 Order Results: Lab Order: CBC with Diff; SPEC'M 11/19/16 19:47 Test: WHITE BLOOD COUNT; Value: 5.0; Range: 4.0-10.0; Units: K/mm3; Status: F Test: RED BLOOD COUNT; Value: 4.26; Range: 4.00-5.40; Units: M/mm3; Status: F Test: HEMOGLOBIN; Value: 12.0; Range: 12.0-16.0; Units: g/dl; Status: F Test: HEMATOCRIT; Value: 34.7; Range: 36.0-47.0; Abnormal: Below low normal; Units: %; Status: F Test: MEAN CORPUSCULAR VOLUME; Value: 81.4; Range: 80.0-96.0; Units: fl; Status: F Test: MEAN CORPUSCULAR HEMOGLOBIN; Value: 28.1; Range: 27.0-33.0; Units: pg; Status: F Test: MEAN CORPUSCULAR HGB CONC; Value: 34.5; Range: 32.0-36.5; Units: g/dl; Status: F Test: RED CELL DISTRIBUTION WIDTH; Value: 14.1; Range: 11.5-14.5; Units: %; Status: F Test: PLATELET COUNT, AUTOMATED; Value: 195; Range: 150-450; Units: k/mm3; Status: F Test: NEUTROPHILS %; Value: 46.9; Range: 36.0-66.0; Units: %; Status: F Test: LYMPH %; Value: 40.4; Range: 24.0-44.0; Units: %; Status: F Test: MONO %; Value: 6.7; Range: 0.0-5.0; Abnormal: Above high normal; Units: %; Status: F Test: EOS %; Value: 1.1; Range: 0.0-3.0; Units: %; Status: F Test: BASO %; Value: 0.2; Range: 0.0-1.0; Units: %; Status: F Test: LARGE UNSTAINED CELL %; Value: 4.7; Range: 0.0-4.0; Abnormal: Above high normal; Units: %; Status: F Test: NEUTROPHILS #; Value: 2.4; Range: 1.8-7.7; Units: K/mm3; Status: F Test: LYMPH #; Value: 2.0; Range: 1.5-4.5; Units: K/mm3; Status: F Test: MONO #; Value: 0.3; Range: 0.0-0.8; Units: K/mm3; Status: F Test: EOS #; Value: 0.0; Range: 0.0-0.50; Units: K/mm3; Status: F Test: BASO #; Value: 0.0; Range: 0.0-0.2; Units: K/mm3; Status: F Test: LARGE UNSTAINED CELL #; Value: 0.2; Range: 0.0-0.4; Units: K/mm3; Status: F Lab Order: MED Profile; SPECM 11/19/16 20:42 Test: GLUCOSE, FASTING; Value: 187; Range: 83-110; Abnormal: Above high normal; Units: MG/DL; Status: F Test: BLOOD UREA NITROGEN; Value: 26; Range: 7-18; Abnormal: Above high normal; Units: MG/DL; Status: F Test: CREATININE FOR GFR; Value: 1.57; Range: 0.55-1.02; Abnormal: Above high normal; Units: MG/DL; Status: F Test: GLOMERULAR FILTRATION RATE; Value: 41.4; Range: >39; Status: F Test: SODIUM LEVEL; Value: 134; Range: 136-145; Abnormal: Below low normal; Units: MEQ/L; Status: F Test: POTASSIUM SERUM; Value: 3.7; Range: 3.5-5.1; Units: MEQ/L; Status: F Test: CHLORIDE LEVEL; Value: 101; Range: 98-107; Units: MEQ/L; Status: F Test: CARBON DIOXIDE LEVEL; Value: 26; Range: 21-32; Units: MEQ/L; Status: F Test: ANION GAP; Value: 7; Range: 8-16; Abnormal: Below low normal; Units: MEQ/L; Status: F Test: CALCIUM LEVEL; Value: 8.2; Range: 8.8-10.2; Abnormal: Below low normal; Units: MG/DL; Status: F Test Note: ; Units are mL/min/1.73 m2 Chronic Kidney Disease Staging per NKF: Stage I & II GFR >=60 Normal to Mildly Decreased Stage III GFR 30-59 Moderately Decreased Stage IV GFR 15-29 Severely Decreased Stage V GFR <15 Very Little GFR Left ESRD GFR <15 on TIN TIE MACHINE OPERATOR AUTOMATIC Lab Order: Type & Screen; SPEC'11/19/16 20:42 Test: BLOOD TYPE; Value: B POS; Status: F Test: AB SCREEN (INDIRECT JULIO)GEL; Value: NEGATIVE; Status: F Lab Order: UA; SPEC'M 11/19/16 19:47 Test: APPEARANCE, URINE; Value: HAZY; Range: CLEAR; Status: F Test: COLOR, URINE; Value: YELLOW; Range: YELLOW; Status: F Test: PH,URINE; Value: 5.0; Range: 5.0-9.0; Units: UNITS; Status: F Test: SPECIFIC GRAVITY URINE AUTO; Value: 1.011; Range: 1.002-1.035; Status: F Test: PROTEIN, URINE AUTO; Value: 2+; Range: NEGATIVE; Abnormal: Above high normal; Units: mg/dL; Status: F Test: GLUCOSE, URINE (UA) AUTO; Value: NEGATIVE; Range: NEGATIVE; Units: mg/dL; Status: F Test: KETONE, URINE AUTO; Value: NEGATIVE; Range: NEGATIVE; Units: mg/dL; Status: F Test: UROBILINOGEN, URINE AUTO; Value: 0.2; Range: 0.0-2.0; Units: mg/dL; Status: F Test: BILIRUBIN, URINE AUTO; Value: NEGATIVE; Range: NEGATIVE; Status: F Test: NITRITE, URINE AUTO; Value: NEGATIVE; Range: NEGATIVE; Status: F Test: LEUKOCYTE ESTERASE, URINE AUTO; Value: TRACE; Range: NEGATIVE; Abnormal: Above high normal; Status: F Test: BLOOD, URINE BLOOD; Value: NEGATIVE; Range: NEGATIVE; Status: F Test: WBC, URINE AUTO; Value: 2; Range: 0-3; Units: /HPF; Status: F Test: RBC, URINE AUTO; Value: 3; Range: 0-3; Units: /HPF; Status: F Test: BACTERIA, URINE AUTO; Value: 1+; Range: NEGATIVE; Abnormal: Above high normal; Status: F Test: SQUAMOUS EPITHELIAL CELL UR AU; Value: 3; Range: 0-6; Units: /HPF; Status: F Test: MUCUS, URINE; Value: SMALL; Range: NEGATIVE; Status: F Test: HYALINE CAST, URINE AUTO; Value: 4; Range: 0-1; Units: /LPF; Status: F Lab Order: Urine Culture; SPEC'M 11/19/16 19:47 Test: URINE CULTURE; Value: URINE CULTURE RESULT NO GROWTH; Status: F Radiology Order: EKG-ADULT Test: EKG-ADULT REASON FOR EXAMINATION: dizzy; Stationary ECG Study; [facility] - ED; ; Test Date: 2016-11-19; Pat Name: NAYA PLASCENCIA Department:; Room: -; Gender: F Bobj Developer: bashir; : 1940 Requested By: Chloe Boone; Order Number: [id number] Reading MD: Barrington Joshua; Measurements; Intervals [place]; Rate: 61 P: 40; CO: 170 QRS: 11; QRSD: 94 T: 208; QT: 399; QTc: 402; Interpretive Statements; SINUS RHYTHM; LEFT VENTRICULAR HYPERTROPHY AND ST-T CHANGE; ; Electronically Signed On 11-19-2016 21:29:21 EST by Barrington Joshua; Radiology Order: Chest, 2 View (pa\E\lat) Test: Chest, 2 View (pa\E\lat) REASON FOR EXAMINATION: Cough; Clinical: Acute cough .; ; Comparison: 11/16/2016 .; ; Technique: PA and lateral.; ; Findings:; The mediastinum and cardiac silhouette are normal. The lung trujillo are clear and; without acute consolidation, effusion, or pneumothorax. The skeletal structures; are intact and normal.; ; Impression:; 1. No acute cardiopulmonary process.; ; ; Signed by; Onel Ragsdale MD 11/20/2016 02:21 A; Outcome: 23:28 Discharge Assessment: Patient awake, alert and oriented x 3. No cognitive and/or cf2 functional deficits noted. Patient verbalized understanding of disposition instructions. Patient awake and alert. Oriented to person, place and time. patient administered narcotics - no. The following High Risk Discharge criteria are identified: None. Discharged to home ambulatory. Condition: good Condition: stable Condition: improved. Discharge instructions given to patient. No special radiology studies were completed. 11/20 01:03 Discharge ordered by Provider. mm11 01:37 Patient left the ED. cf2 Signatures: Dispatcher [employer] EDMS Angela Johnston, Youth Career Specialist Unit deg Stacy Cortes, Reg Reg Sim Hood DO DO mm11 Nimco Mccloud, RN RN sls1 Anh Calzada, SUBMARINE CABLE EQUIPMENT TECHNICIAN SUBMARINE CABLE EQUIPMENT TECHNICIAN jlf Mohini Harry, Youth Career Specialist Unit [facility] Joanna Gilmore,RN RN kc3 Stefani Lagos Christina,RN RN cf2 Varinder, Lanre, SUBMARINE CABLE EQUIPMENT TECHNICIAN SUBMARINE CABLE EQUIPMENT TECHNICIAN jmv Chart Complete MTDD
--- NOTE | 2016-11-22 02:39 | EDDOCDS ---
Physician Documentation [facility] Name: Naya Plascencia Age: 76 yrs Sex: Female : 1940 Arrival Date: 11/19/2016 Time: 18:13 Bed TR1 Private MD: Disposition: 11/20/16 01:03 Discharged to Home/Self Care. Impression: Dehydration. - Condition is Stable. - Discharge Instructions: Dehydration, Elderly, Rehydration, Elderly. - Medication Reconciliation, Local Pharmacy Hours form. - Follow up: Private Physician; When: Call to arrange an appointment; Reason: Continuance of care. - Problem is an acute exacerbation. - Symptoms have improved. Historical: - Allergies: Albuterol; Aspirin; HYDRALAZINE; IRON COMPLEX; Lipitor; Lisinopril; Metformin HCl; Nitrostat; PENICILLINS; Ragweed; Sulfa (Sulfonamide Antibiotics); - Home Meds: 1. carvedilol 3.125 mg oral tab 2 times per day 2. colchicine 0.6 mg Oral tab 1 tab once daily 3. doxycycline hyclate 100 mg Oral cap 1 cap 2 times per day 4. felodipine 10 mg oral Tb24 1 tab once daily 5. febuxostat 40 mg oral tab 1 tab once daily 6. furosemide 40 mg Oral tab 1 tab once daily 7. Lantus 100 unit/mL Sub-Q soln 30 unit daily 8. meclizine 25 mg Oral tab 1 tab as needed 9. omeprazole 20 mg Oral cpDR once daily 10. pravastatin 20 mg oral tab once daily 11. prednisone 20 mg Oral tab 2 tabs once daily 12. Januvia 50 mg oral tab once daily 13. tramadol 50 mg Oral tab 1 tab every 6 hours as needed 14. warfarin 5 mg Oral tab 1 tab once daily 15. Flexeril 10 mg Oral tab 1 tab 3 times per day as needed - PMHx: Atrial Fib; polyarthralgia; Hypertension; hyperlipidemia; GERD; Diabetes - IDDM: controlled; cerebral amyloid angiopathy; back pain; - PSHx: blood clot removal from right groin; - Social history: Smoking status: Patient states was never smoker of tobacco. No barriers to communication noted, The patient speaks fluent Slovak, Speaks appropriately for age. - Family history: Not pertinent. - : The pt / caregiver states he / she is on anticoagulants: coumadin. Home medication list is obtained from the facility MAR. - Exposure Risk Screening:: None identified. Vital Signs: 11/19 18:39 BP 180 / 83; Pulse 66; Resp 18; Temp 98.3; Pulse Ox 95% on R/A; Weight 94.35 kg / kc3 208.01 lbs; Height 5 ft. 7 in. (170.18 cm); Pain 0/10; 18:57 BP 146 / 74 (auto/); cf2 18:58 Pulse 60 MON; Pulse Ox 95% ; cf2 19:27 BP 146 / 95 (auto/); cf2 19:28 Pulse 60 MON; Pulse Ox 94% ; cf2 19:57 BP 138 / 74 (auto/); cf2 19:58 Pulse 58 MON; Pulse Ox 95% ; cf2 20:27 BP 132 / 77 (auto/); cf2 20:28 Pulse 74 MON; Pulse Ox 96% ; cf2 20:34 Pulse 82 MON; Pulse Ox 95% ; cf2 20:39 Pulse 68 MON; Pulse Ox 94% ; cf2 20:40 BP 132 / 78 Sitting; Pulse 67; Pulse Ox 94% ; cf2 20:40 BP 130 / 71 Standing; Pulse 64; Pulse Ox 94% ; cf2 20:40 BP 128 / 71 Supine; Pulse 62; cf2 20:45 Pulse 64 MON; Pulse Ox 94% ; cf2 20:57 BP 163 / 82 (auto/); cf2 20:58 Pulse 64 MON; Pulse Ox 95% ; cf2 21:02 Pulse 64 MON; Pulse Ox 94% ; cf2 21:08 Pulse 64 MON; Pulse Ox 95% ; cf2 21:13 Pulse 66 MON; Pulse Ox 93% ; cf2 21:19 Pulse 64 MON; Pulse Ox 97% ; cf2 21:26 Pulse 70 MON; Pulse Ox 95% ; cf2 21:31 Pulse 64 MON; Pulse Ox 95% ; cf2 21:38 Pulse 68 MON; Pulse Ox 95% ; cf2 23:27 BP 150 / 77 (auto/); cf2 23:28 Pulse 60 MON; Pulse Ox 96% ; cf2 23:28 Temp 98.1; Pain 0/10; cf2 23:35 BP 194 / 81 (auto/); cf2 23:36 Pulse 72 MON; Pulse Ox 92% ; cf2 11/20 01:04 Pulse 58 MON; Pulse Ox 96% ; cf2 01:04 BP 147 / 81 (auto/); cf2 01:07 BP 147 / 81; Pulse 70; Resp 20; Temp 97.7(O); Pulse Ox 97% on R/A; Pain 0/10; jmv 01:13 Pulse 58 MON; Pulse Ox 95% ; cf2 01:17 Pulse 58 MON; Pulse Ox 93% ; cf2 11/19 18:39 Body Mass Index 32.58 (94.35 kg, 170.18 cm) kc3 MDM: 11/19 18:35 Sports Physician/Pulse Ox/q 30 min VS ordered. sd1 18:35 Orthostatic VS ordered. sd1 18:35 IV Saline Lock ordered. sd1 18:36 ECG WITH READING ER PHYS+CARDIAG ordered. EDMS 18:37 CBC with Diff Ordered. EDMS 18:37 MED Profile Ordered. EDMS 18:37 Type & Screen Ordered. EDMS 19:42 Metoclopramide 10 mg IV at 40 mg/hr once over 15 mins ordered. mm11 19:42 LR Solution 1000 ml IV at bolus once ordered. mm11 19:43 Chest, 2 View (pa\E\lat) Ordered. EDMS 19:43 UA Ordered. EDMS 19:43 Urine Culture Ordered. EDMS 21:10 Financial registration complete. zo 21:19 CBC with Diff Reviewed. mm11 21:19 UA Reviewed. mm11 21:19 Type & Screen Reviewed. mm11 21:27 [facility] Payment Agreement was scanned into [employer] and attached to record. gjb 21:52 MED Profile Reviewed. mm11 21:52 Type & Screen Reviewed. mm11 11/20 00:32 EKG-ADULT Reviewed. mm11 11:12 T-Sheet-- Draft Copy was scanned into [employer] and attached to record. gb 11:12 ECG/EKG was scanned into [employer] and attached to record. gb Administered Medications: 11/19 20:06 Drug: Metoclopramide 10 mg [metoclopramide 5 mg/mL injection solution] Route: IV; Rate: cf2 40 mg/hr; Infused Over: 15 mins; Site: left antecubital; 21:42 Follow up: Response: Pain is decreased cf2 20:06 Drug: LR 1000 ml [lactated ringers intravenous solution] Route: IV; Rate: bolus; Site: cf2 left antecubital; 21:42 Follow up: Response: No significant change. cf2 Signatures: Dispatcher [employer] Chloe Hopper MD MD sd1 Stacy Cortes, Mitchell Reg Wallace Jameson Matthew, DO DO mm11 Joanna Gilmore RN RN kc3 Stefani Lagos b Cami Miller RN RN cf2 The chart was reviewed and I authenticate all verbal orders and agree with the evaluation and treatment provided.Attachments: 21:27 [facility] Payment Agreement gjb 11/20 11:12 T-Sheet-- Draft Copy gb 11:12 ECG/EKG gb Chart Complete MTDD
--- NOTE | 2016-11-22 02:39 | EDDOCDS ---
Physician Documentation [facility] Name: Naya Plascencia Age: 76 yrs Sex: Female : 1940 Arrival Date: 11/19/2016 Time: 18:13 Bed TR1 Private MD: Disposition: 11/20/16 01:03 Discharged to Home/Self Care. Impression: Dehydration. - Condition is Stable. - Discharge Instructions: Dehydration, Elderly, Rehydration, Elderly. - Medication Reconciliation, Local Pharmacy Hours form. - Follow up: Private Physician; When: Call to arrange an appointment; Reason: Continuance of care. - Problem is an acute exacerbation. - Symptoms have improved. Historical: - Allergies: Albuterol; Aspirin; HYDRALAZINE; IRON COMPLEX; Lipitor; Lisinopril; Metformin HCl; Nitrostat; PENICILLINS; Ragweed; Sulfa (Sulfonamide Antibiotics); - Home Meds: 1. carvedilol 3.125 mg oral tab 2 times per day 2. colchicine 0.6 mg Oral tab 1 tab once daily 3. doxycycline hyclate 100 mg Oral cap 1 cap 2 times per day 4. felodipine 10 mg oral Tb24 1 tab once daily 5. febuxostat 40 mg oral tab 1 tab once daily 6. furosemide 40 mg Oral tab 1 tab once daily 7. Lantus 100 unit/mL Sub-Q soln 30 unit daily 8. meclizine 25 mg Oral tab 1 tab as needed 9. omeprazole 20 mg Oral cpDR once daily 10. pravastatin 20 mg oral tab once daily 11. prednisone 20 mg Oral tab 2 tabs once daily 12. Januvia 50 mg oral tab once daily 13. tramadol 50 mg Oral tab 1 tab every 6 hours as needed 14. warfarin 5 mg Oral tab 1 tab once daily 15. Flexeril 10 mg Oral tab 1 tab 3 times per day as needed - PMHx: Atrial Fib; polyarthralgia; Hypertension; hyperlipidemia; GERD; Diabetes - IDDM: controlled; cerebral amyloid angiopathy; back pain; - PSHx: blood clot removal from right groin; - Social history: Smoking status: Patient states was never smoker of tobacco. No barriers to communication noted, The patient speaks fluent Nepali, Speaks appropriately for age. - Family history: Not pertinent. - : The pt / caregiver states he / she is on anticoagulants: coumadin. Home medication list is obtained from the facility MAR. - Exposure Risk Screening:: None identified. Vital Signs: 11/19 18:39 BP 180 / 83; Pulse 66; Resp 18; Temp 98.3; Pulse Ox 95% on R/A; Weight 94.35 kg / kc3 208.01 lbs; Height 5 ft. 7 in. (170.18 cm); Pain 0/10; 18:57 BP 146 / 74 (auto/); cf2 18:58 Pulse 60 MON; Pulse Ox 95% ; cf2 19:27 BP 146 / 95 (auto/); cf2 19:28 Pulse 60 MON; Pulse Ox 94% ; cf2 19:57 BP 138 / 74 (auto/); cf2 19:58 Pulse 58 MON; Pulse Ox 95% ; cf2 20:27 BP 132 / 77 (auto/); cf2 20:28 Pulse 74 MON; Pulse Ox 96% ; cf2 20:34 Pulse 82 MON; Pulse Ox 95% ; cf2 20:39 Pulse 68 MON; Pulse Ox 94% ; cf2 20:40 BP 132 / 78 Sitting; Pulse 67; Pulse Ox 94% ; cf2 20:40 BP 130 / 71 Standing; Pulse 64; Pulse Ox 94% ; cf2 20:40 BP 128 / 71 Supine; Pulse 62; cf2 20:45 Pulse 64 MON; Pulse Ox 94% ; cf2 20:57 BP 163 / 82 (auto/); cf2 20:58 Pulse 64 MON; Pulse Ox 95% ; cf2 21:02 Pulse 64 MON; Pulse Ox 94% ; cf2 21:08 Pulse 64 MON; Pulse Ox 95% ; cf2 21:13 Pulse 66 MON; Pulse Ox 93% ; cf2 21:19 Pulse 64 MON; Pulse Ox 97% ; cf2 21:26 Pulse 70 MON; Pulse Ox 95% ; cf2 21:31 Pulse 64 MON; Pulse Ox 95% ; cf2 21:38 Pulse 68 MON; Pulse Ox 95% ; cf2 23:27 BP 150 / 77 (auto/); cf2 23:28 Pulse 60 MON; Pulse Ox 96% ; cf2 23:28 Temp 98.1; Pain 0/10; cf2 23:35 BP 194 / 81 (auto/); cf2 23:36 Pulse 72 MON; Pulse Ox 92% ; cf2 11/20 01:04 Pulse 58 MON; Pulse Ox 96% ; cf2 01:04 BP 147 / 81 (auto/); cf2 01:07 BP 147 / 81; Pulse 70; Resp 20; Temp 97.7(O); Pulse Ox 97% on R/A; Pain 0/10; jmv 01:13 Pulse 58 MON; Pulse Ox 95% ; cf2 01:17 Pulse 58 MON; Pulse Ox 93% ; cf2 11/19 18:39 Body Mass Index 32.58 (94.35 kg, 170.18 cm) kc3 MDM: 11/19 18:35 Crm Marketing Manager/Pulse Ox/q 30 min VS ordered. sd1 18:35 Orthostatic VS ordered. sd1 18:35 IV Saline Lock ordered. sd1 18:36 ECG WITH READING ER PHYS+CARDIAG ordered. EDMS 18:37 CBC with Diff Ordered. EDMS 18:37 MED Profile Ordered. EDMS 18:37 Type & Screen Ordered. EDMS 19:42 Metoclopramide 10 mg IV at 40 mg/hr once over 15 mins ordered. mm11 19:42 LR Solution 1000 ml IV at bolus once ordered. mm11 19:43 Chest, 2 View (pa\E\lat) Ordered. EDMS 19:43 UA Ordered. EDMS 19:43 Urine Culture Ordered. EDMS 21:10 Financial registration complete. zo 21:19 CBC with Diff Reviewed. mm11 21:19 UA Reviewed. mm11 21:19 Type & Screen Reviewed. mm11 21:27 [facility] Payment Agreement was scanned into [employer] and attached to record. gjb 21:52 MED Profile Reviewed. mm11 21:52 Type & Screen Reviewed. mm11 11/20 00:32 EKG-ADULT Reviewed. mm11 11:12 T-Sheet-- Draft Copy was scanned into [employer] and attached to record. gb 11:12 ECG/EKG was scanned into [employer] and attached to record. gb Administered Medications: 11/19 20:06 Drug: Metoclopramide 10 mg [metoclopramide 5 mg/mL injection solution] Route: IV; Rate: cf2 40 mg/hr; Infused Over: 15 mins; Site: left antecubital; 21:42 Follow up: Response: Pain is decreased cf2 20:06 Drug: LR 1000 ml [lactated ringers intravenous solution] Route: IV; Rate: bolus; Site: cf2 left antecubital; 21:42 Follow up: Response: No significant change. cf2 Signatures: Dispatcher [employer] Chloe Hopper MD MD sd1 Stacy Cortes, Mitchell Reg Wallace Jameson Matthew, DO DO mm11 Joanna Gilmore RN RN kc3 Stefani Lagos b Cami Miller RN RN cf2 The chart was reviewed and I authenticate all verbal orders and agree with the evaluation and treatment provided.Attachments: 21:27 [facility] Payment Agreement gjb 11/20 11:12 T-Sheet-- Draft Copy gb 11:12 ECG/EKG gb Chart Complete MTDD
== END 2016-11-20 01:37 | disposition home or self-care (01) ==
LOC: M ED 18:13
DX: E86.0 Dehydration (principal); I48.91 Unspecified atrial fibrillation; M13.0 Polyarthritis, unspecified; I10 Essential (primary) hypertension; E78.5 Hyperlipidemia, unspecified; K21.9 Gastro-esophageal reflux disease without esophagitis; E11.9 Type 2 diabetes mellitus without complications; I68.0 Cerebral amyloid angiopathy; M54.9 Dorsalgia, unspecified; Z79.899 Other long term (current) drug therapy; Z88.8 Allergy status to other drugs, medicaments and biological substances; Z88.6 Allergy status to analgesic agent; Z88.0 Allergy status to penicillin; Z88.2 Allergy status to sulfonamides; Z79.01 Long term (current) use of anticoagulants; Z79.4 Long term (current) use of insulin; Z79.52 Long term (current) use of systemic steroids; Z79.84 Long term (current) use of oral hypoglycemic drugs
CPT/HCPCS: 36415; 71020; 80048; 81001; 85025; 86850; 86900; 86901; 87086; 93005; 93041; 96374; 99284; J2765

== ENCOUNTER 2017-01-15 13:06 | Inpatient (IN) | payer MEDICARE, MEDICAID ==
[~2017-01-15] VITALS: Ht 172.7 cm; Wt 97.0 kg
[~2017-01-15 13:06] MED LIST changes: -AMIO20TA; -AMIO20TA PO; -AMLO10TA2; -AMLO10TA2 PO; -CARV6.25 PO; -CHLO25TA PO; -ELIQ5TAB; -ELIQ5TAB PO; -FURO20TA2 PO; -OMEP20CA3 PO
[2017-01-15] MEDS ORDERED: ELIQ5TAB (13:29)
[2017-01-15] MEDS ORDERED: AMIO20TA (13:29)
[2017-01-15] MEDS ORDERED: FURO20TA2 PO (13:29)
[2017-01-15] MEDS ORDERED: AMLO10TA2 (13:29)
[2017-01-15 14:19] LABS: BASO % 0.2 % (0.0-1.0); EOS % 0.3 % (0.0-3.0); LARGE UNSTAINED CELL # 0.2 K/mm3 (0.0-0.4); LARGE UNSTAINED CELL % 4.2 % (0.0-4.0); LYMPH # 1.8 K/mm3 (1.5-4.5); LYMPH % 46.9 % (24.0-44.0); MEAN CORPUSCULAR HEMOGLOBIN 27.6 pg (27.0-33.0); MEAN CORPUSCULAR HGB CONC 32.8 g/dl (32.0-36.5); MEAN CORPUSCULAR VOLUME 84.2 fl (80.0-96.0); MONO # 0.3 K/mm3 (0.0-0.8); MONO % 7.3 % (0.0-5.0); NEUTROPHILS # 1.5 K/mm3 (1.8-7.7); PLATELET COUNT, AUTOMATED 217 k/mm3 (150-450); RED CELL DISTRIBUTION WIDTH 14.6 % (11.5-14.5); WHITE BLOOD COUNT 3.6 K/mm3 (4.0-10.0)
[2017-01-15 14:36] LABS: ANION GAP 9 MEQ/L (8-16); BLOOD UREA NITROGEN 35 MG/DL (7-18); CALCIUM LEVEL 8.5 MG/DL (8.8-10.2); CARBON DIOXIDE LEVEL 25 MEQ/L (21-32); CHLORIDE LEVEL 104 MEQ/L (98-107); CREATININE FOR GFR 2.01 MG/DL (0.55-1.02); GLOMERULAR FILTRATION RATE 31.1 (>39); GLUCOSE, FASTING 176 MG/DL (83-110); POTASSIUM SERUM 4.1 MEQ/L (3.5-5.1); SODIUM LEVEL 138 MEQ/L (136-145)
[2017-01-15] MEDS ORDERED: CHLO25TA PO (15:23)
[2017-01-15] MEDS ORDERED: OMEP20CA3 PO (15:23)
[2017-01-15] MEDS ORDERED: INSULANT SC (15:23)
[2017-01-15] MEDS ORDERED: CARV6.25 PO (15:23)
[2017-01-15] MEDS ORDERED: AMLO10TA2 PO (15:23)
[2017-01-15] MEDS ORDERED: AMIO20TA PO (15:23)
[2017-01-15] MEDS ORDERED: ELIQ5TAB PO (15:23)
[2017-01-15] MEDS ORDERED: ACETAMINOPHEN TAB 650MG DOSE (2X325MG) PO PRN (15:30)
[2017-01-15] MEDS ORDERED: ONDANSETRON 4MG/2ML VIAL (J2405) IV PRN (15:30)
[2017-01-15 15:31] LABS: ALKALINE PHOSPHATASE 123 U/L (45-117); ALT/SGPT 19 U/L (12-78); AST/SGOT 23 U/L (15-37); BILIRUBIN,TOTAL 0.3 MG/DL (0.2-1.0); CHOLESTEROL LEVEL 169 MG/DL (<200); TOTAL PROTEIN 9.6 GM/DL (6.4-8.2); TRIGLYCERIDES LEVEL 162 MG/DL (<150)
[2017-01-15] MEDS ORDERED: GLUCOSE 4 GM CHEW TABLET PO PRN (15:45)
[2017-01-15] MEDS ORDERED: GLUCAGON FOR INJ 1 MG VIAL (J1610) SC PRN (15:45)
[2017-01-15] MEDS ORDERED: DEXTROSE 50% 50 ML SYRINGE IV PRN (15:45)
[2017-01-15 15:47] LABS: ALBUMIN/GLOBULIN RATIO 0.45 (1.00-1.93); BILIRUBIN,DIRECT < 0.1 MG/DL (0.0-0.2); MAGNESIUM LEVEL 1.8 MG/DL (1.8-2.4)
--- NOTE | 2017-01-15 16:05 | REP ---
LEFT LOWER EXTREMITY DOPPLER VENOUS ULTRASOUND: 01/15/2017. Clinical history: Lower extremity swelling, evaluate for DVT. Comparison: Comparison 07/09/2014. Technique: The deep venous system of the left lower extremity is evaluated with garcia scale imaging, compression ultrasound, color imaging and duplex Doppler interrogation. Examination from the groin through the popliteal fossa into the proximal calf. Findings: There is full compressibility from the common femoral vein in the inguinal region through the popliteal vein. Color imaging confirms patency throughout the course of the deep venous system. There is respiratory variation and augmented flow at all levels. Impression: 1. No Doppler venous ultrasound evidence of DVT in the left lower extremity. Signed by Deuce Robledo MD 01/15/2017 05:11 P
[2017-01-15] MEDS ORDERED: NS 1,000 ML IV SCH (17:36)
[2017-01-15] MEDS ORDERED: PROPOFOL 200 MG/20 ML VIAL IV PRN (17:45)
--- NOTE | 2017-01-15 19:20 | RO ---
DATE OF PROCEDURE: 01/15/2017 PREOPERATIVE DIAGNOSIS/INDICATION: Atrial flutter. POSTOPERATIVE DIAGNOSIS: PROCEDURE: Direct current (DC) cardioversion. SURGEON: Dr. Michael Watkins FOOD VENDOR: None. ANESTHESIA: Barrington Joshua MD BRIEF HISTORY: Mrs. Plascencia is a 76-year-old lady who has a history of paroxysmal atrial fibrillation and now has sustained atrial flutter for at least one months ' duration. She has been chronically anticoagulated. She presented to emergency room after she had near syncopal event and exertional dyspnea while she was in the outpatient lab. She was found to be in atrial flutter with controlled rate. I suggested to proceed with DC cardioversion as she clearly has not been tolerating flutter well even when it is well rate controlled. She signed appropriate consent. DESCRIPTION OF PROCEDURE: Procedure was performed in the emergency room. Dr. Joshua administered a total of 40 mg of IV propofol. When she achieved appropriate level of sedation, she was cardioverted with DC defibrillator patches applied in anterior position in synchronized mode with 200 joules of energy. It led to protestant of sinus rhythm without post conversion pause. She tolerated the procedure well, and there were no immediate complications. PLAN: She will be monitored in the hospital at least overnight. Her chronic medications will be continued. WINDY
[2017-01-15 20:40] VITALS: BP 160/86
[2017-01-15] MEDS: HumaLOG INSULIN (NovoLOG) PER UNIT SC SCH ×2 (20:53→20:56)
--- NOTE | 2017-01-15 21:47 | ER ---
DATE OF CONSULTATION: 01/15/2017 REFERRING PHYSICIAN: Dr. Joshua and Dr. Cordero INDICATION: Atrial flutter with RVR, near syncope. HISTORY OF PRESENT ILLNESS: Mrs. Plascencia is well known to me, she is a pleasant 76-year-old -Russian lady who has atrial flutter now for at least a couple months duration. She is rate controlled, but in spite of the rate control she is quite symptomatic. During her last office visit approximately 2 weeks ago, she was started on amiodarone with the idea that if she does not convert to sinus rhythm she would be electrically cardioverted. Today, she came to [facility] lab for routine blood work and as she was sitting on the bench she became very dizzy, lightheaded, was feeling more short of breath and as they called for her and she stood up she got suddenly very dizzy and almost passed out. The rapid response team was called, but she was alert and oriented and there was never loss of consciousness. She was brought to the ER for further evaluation. She was found to be in atrial flutter with 2:1 conduction and ventricular rate 85 beats per minute. She was not in any particular distress. The patient tells me that she lately has not been doing very well. She does complain about exertional intolerance, she gets short of breath rapidly. She denies any palpitation. There has not been any chest discomfort. Because the patient has been chronically anticoagulated, I suggested that we proceed with DC cardioversion. The patient signed appropriate consent and the patient was cardioverted in the emergency room with assistance of Dr. Joshua who administered anesthesia. After 40 mg of propofol she was cardioverted with 200 joules of energy in synchronized mode that led to worship of sinus mechanism. Plan is to admit the patient to hospital for overnight observation and depending on her condition tomorrow, decide about further management. PAST MEDICAL HISTORY: 1. Paroxysmal atrial fibrillation/flutter. 2. Type 2 diabetes. 3. Hypertension. 4. Depression. 5. Gout. 6. Peripheral neuropathy. 7. Polymyalgia rheumatica. 8. History of SHARDA, intolerant of C-PAP. 9. History of TIA 2007. 10. No known coronary artery disease, she had heart catheterization in 2010 that revealed mild nonobstructive CAD. SURGICAL HISTORY: Positive for bilateral iliac thrombectomy, right temporal artery biopsy and left wrist surgery. OUTPATIENT MEDICATIONS: - amiodarone 200 twice a day - amlodipine 10 mg a day - Coreg 6.25 twice a day - chlorthalidone 25 a day - Eliquis 5 mg twice a day - Lantus insulin - omeprazole 20 mg daily SOCIAL HISTORY: The patient used to smoke but quit long time ago. She lives alone. She does not have any close family nearby. FAMILY HISTORY: Father of Alzheimer's disease. She has five children. Nobody in her family had coronary artery disease in early age. REVIEW OF SYSTEMS: There is a history of TIA, but no iona stroke. She denies any recent fever, chills, nausea, vomiting, diaphoresis, no recent chest pain or palpitations. She does get very easily short of breath but she has no PND, orthopnea. No abdominal pain, diarrhea, and no peripheral edema even though she complains about chronic left lower extremity edema with intermittent swelling but none as of last few days. PHYSICAL EXAMINATION: Mrs. Plascencia is an elderly -Russian female alert and oriented and appropriate, blood pressure after the procedure 136/70, heart rate is in 60s, sinus rhythm with occasional atrial ectopy. She is afebrile. Saturation is mid 90s on supplemental oxygen. Her JVP does not look elevated. I do not appreciate carotid bruit. Lungs are clear to auscultation with good air movement. Heart exam reveals regular rhythm without gallop, rub or murmur, somewhat muffled heart sound corresponding to her obesity. Abdomen is obese but soft and nontender. There is no peripheral edema and neurologically she is intact. LABORATORY DATA: Basic metabolic panel: Potassium 4.1, BUN 35, creatinine 2.0, glucose 176, magnesium 1.8, CK, CK-MB, and troponin normal. Albumin is 3.0, cholesterol 169, triglycerides 162, LDL 106 and HDL 30. TSH is 4.7. ECG on presentation reveals atrial flutter with 2:1 conduction. After the cardioversion it is sinus rhythm with heart rate 63 beats per minute, voltage criteria for left ventricular hypertrophy with corresponding ST-T abnormalities, QT interval 440 milliseconds. ASSESSMENT/PLAN: Mrs. Plascencia is a 76-year-old -Russian lady with hypertensive heart disease who presents with atrial flutter and controlled rate but there has been associated dizziness with near syncope and exertional dyspnea. She was electrically cardioverted in the emergency department and is currently in sinus rhythm. For the time being, I would continue her chronic medications and tentatively, I believe, she can be discharged within 24-48 hours depending on her clinical condition. I intend to see her in followup on outpatient basis next week. I discussed the plan with Dr. Cordero. WINDY
--- NOTE | 2017-01-15 21:50 | HPE ---
DATE OF ADMISSION: 01/15/2017 CHIEF COMPLAINT: "My atrial fibrillation got worse." HISTORY OF PRESENT ILLNESS: For the last 24 hours, she has been experiencing symptoms which she ascribes to worsening of her atrial fibrillation. It started on 01/13/2017, and she was feeling an irregular heartbeat in her sternum in the upper area. It did not feel fast, but felt irregular and felt as though it was making her throat tighten. She became short of breath with exertion. It was better when she was lying down and resting. She has experienced paroxysmal nocturnal dyspnea in the last two days. On , 01/14/2017, the symptoms got worse and more persistent. She became much more shortness of breath. Today, she took the bus to [facility], as she was due to get lab draws prior to her first visit to Dr. Licea. As she was walking into the lab, she almost passed out. She could not breath. She was so short of breath that she could not talk. In the lab, a rapid response team was called and before they were able to draw her blood, she was transferred to the emergency department for evaluation. She has been a patient of Dr. Watkins. Dr. Watkins plans to come in later today and cardiovert the patient. PAST MEDICAL HISTORY: 1. Rheumatoid arthritis, not on any disease-modifying drugs. 2. Hypertension. 3. Anemia, with a severe allergy to iron. 4. History of malignant melanoma on her right second finger, status post excision. 5. Atrial fibrillation, now on Eliquis. 6. Insulin dependent diabetes on 32 units of Lantus nightly. 7. Gout. 8. Bilateral iliac artery thrombosis. 9. Temporal arteritis. 10. History of transient ischemic attacks (TIAs). SURGICAL HISTORY: 1. Trigger finger release in 2012. 2. Cataract extraction bilaterally. 3. Right index finger melanoma excision. 4. Right temporal artery biopsy. HOME MEDICATIONS: Currently include: - amiodarone 200 mg by mouth twice a day - Norvasc 10 mg daily - apixaban 5 mg by mouth twice a day - Coreg 6.25 mg by mouth twice a day - chlorthalidone 25 mg daily - Lantus 32 units subcutaneously nightly - omeprazole 20 mg daily ALLERGIES: She has multiple listed allergies, including: SULFA, LISINOPRIL, LIPITOR, METFORMIN, HYDRALAZINE, PENICILLIN, ASPIRIN, and a severe type of reaction to IRON, which apparently was ORAL IRON. SOCIAL HISTORY: She does not smoke. She does not use alcohol. She is Yazidi and refuses blood products. FAMILY HISTORY: Is known for a mother who is unknown to the patient, a father who at age 83 of Alzheimer's disease. REVIEW OF SYSTEMS: Is notable for: Hot and cold spells, unintentional 60 pound weight loss in one year. Chronic constipation. No headache. No visual changes. No runny nose. No sore throat. No neck pain. She has no cough. She has shortness of breath, s previously described. She has some discomfort in her chest, as previously described. No abdominal pain. No focal weakness. Otherwise unremarkable. PHYSICAL EXAMINATION: Temperature 98, pulse 84, respiratory rate 20, blood pressure 131/72, 94% on room air. She is awake, appropriately interactive. Remembers me from previous encounters. Sinuses are nontender. Pupils equal, round and reactive. Anicteric. Noninjected. Nasal septum is midline. Mucous membranes moist. She is wearing upper and lower dentures. Neck is supple, thick. Breathing is symmetrical. Inspiratory to expiratory ratio (I:E) is 1:3. Decreased aeration throughout. No wheezes. She is speaking in complete sentences. No accessory muscle use. Heart is in a regular rate and rhythm, with a rate around 70. Radial pulses are 2+ bilaterally. Capillary refill is less than 2 seconds. There is no significant lower extremity edema. There is no sacral edema. There is no costovertebral angle (CVA) tenderness. Left lower extremity is slightly larger than right, which is apparently a new finding. Abdomen is soft, doughy, nontender. She is moving all four extremities. Cranial nerves II-XII are grossly intact. Normal mood and affect. White cell count 3.6, hemoglobin 11.8, platelets 217. Sodium 138, BUN 35, creatinine 2.01, which is higher than her baseline of what would appear to be around 1.5. CK 131. Troponin 0.02. Thyroid stimulating hormone (TSH) 4.73. Chest x-ray shows no acute findings. ASSESSMENT: This is a 76-year-old with symptomatic atrial flutter. Plan for cardioversion. Patient will be admitted for two midnight hospital stay for cardioversion and medication adjustment. She will be seen in consultation with cardiology. PLAN: 1. Cardiovascular: Patient is anticoagulated and has been for some time; is on Eliquis. Plan for cardioversion today. Dr. Watkins has been consulted. We will continue her amiodarone and management per the cardiology team. She is profoundly symptomatic and has been worsening. 2. The patient has diabetes, is insulin dependent. Will place on sliding scale insulin with Lantus or its equivalent of Levemir in our hospital. 3. Patient has gout. She does not like medications for gout, but prefers to use hobson juice. 4. Patient has a history of hypertension. We will restart her calcium channel eric with hold parameters and will continue her beta eric and chlorthalidone as ordered. 5. Patient has, apparently, a history of gastroesophageal reflux disease (GERD). Will continue with omeprazole. 6. Patient apparently has been treated for obstructive sleep apnea in the past and was unable to tolerate bilevel positive airway pressure (BiPAP). 7. Deep venous thrombosis (DVT) prophylaxis with full dose Eliquis.
[2017-01-15] MEDS: SENOKOT S TAB PO SCH (22:00)
[2017-01-15] MEDS ORDERED: SLF 3 ML SYR IV PRN (22:15)
[2017-01-16] VITALS (7 sets, daily range): BP systolic 131–154; BP diastolic 71–89
[2017-01-16] MEDS: SLF 3 ML SYR IV SCH ×3 (04:13→21:10)
[2017-01-16 05:35] LABS: CREATININE FOR GFR 1.68 MG/DL (0.55-1.02); GLOMERULAR FILTRATION RATE 38.3 (>39); MAGNESIUM LEVEL 1.8 MG/DL (1.8-2.4); POTASSIUM SERUM 3.8 MEQ/L (3.5-5.1)
[2017-01-16 05:44] LABS: MEAN CORPUSCULAR HEMOGLOBIN 28.4 pg (27.0-33.0); MEAN CORPUSCULAR HGB CONC 33.8 g/dl (32.0-36.5); MEAN CORPUSCULAR VOLUME 83.9 fl (80.0-96.0); RED CELL DISTRIBUTION WIDTH 14.6 % (11.5-14.5); WHITE BLOOD COUNT 3.7 K/mm3 (4.0-10.0)
[2017-01-16] MEDS: SENOKOT S TAB PO SCH ×2 (08:13→21:08)
[2017-01-16] MEDS: HumaLOG INSULIN (NovoLOG) PER UNIT SC SCH ×4 (08:13→21:00)
[2017-01-16] MEDS: OMEPRAZOLE 20 MG CAP PO SCH (09:06)
[2017-01-16] MEDS: CARVedilol 6.25 MG TAB PO SCH ×2 (09:07→21:08)
[2017-01-16] MEDS: amLODIPine 10 MG TAB PO SCH (09:07)
[2017-01-16] MEDS: APIXABAN 5 MG TAB (ELIQUIS) PO SCH ×2 (09:07→21:08)
[2017-01-16] MEDS: AMIODARONE 200 MG TAB (PACERONE) PO SCH ×2 (09:07→21:08)
--- NOTE | 2017-01-16 13:47 | ECGEPIP ---
Stationary ECG Study [facility] Test Date: 2017-01-16 Pat Name: VIVIANA PEÑALOZA Department: Room: [place] [address] Gender: F Sponsorship Coordinator: JAY : 1940 Requested By: BERNICE Boudreaux Order Number: [id number] Reading MD: Tremaine Bowers Measurements Intervals [place] Rate: 62 P: 51 VT: 198 QRS: 5 QRSD: 88 T: 135 QT: 428 QTc: 438 Interpretive Statements Normal sinus rhythm at 62 bpm LA conduction disturbance Left ventricular hypertrophy by Armani criteria. No change from 11/19/16 Electronically Signed On 01-16-2017 13:46:49 EDT by Tremaine Bowers
[2017-01-16] MEDS: CETIRIZINE (ZyrTEC) 10 MG TAB PO SCH (14:52)
--- NOTE | 2017-01-16 15:01 | REP ---
PORTABLE CHEST X-RAY: Single view. HISTORY: Syncope. COMPARISON STUDY: November 19, 2016. FINDINGS: EKG monitoring electrodes overlie the chest. There is moderate to marked cardiomegaly again noted unchanged. The aorta is calcific and a little tortuous. There are degenerative changes in the thoracic spine. The pulmonary vasculature is not increased. No infiltrate is seen in the lung trujillo. Pleural angles are sharp. IMPRESSION: Cardiomegaly as before. No infiltrate seen. Signed by Omkar Minor MD 01/16/2017 03:33 P
--- NOTE | 2017-01-16 19:45 | ECGEPIP ---
Stationary ECG Study [facility] - ED Test Date: 2017-01-15 Pat Name: VIVIANA PEÑALOZA Department: Room: - Gender: F Continuing Education Director: rn : 1940 Requested By: Barrington Carr Order Number: [id number] Reading MD: Chloe Boone Measurements Intervals Stout Rate: 84 P: 86 MN: 244 QRS: 8 QRSD: 88 T: 147 QT: 392 QTc: 464 Interpretive Statements SINUS RHYTHM WITH SINUS ARRHYTHMIA WITH FIRST DEGREE AV BLOCK LEFT VENTRICULAR HYPERTROPHY AND ST-T CHANGE VS ISCHEMIA INCREASED RATE 01/16/17 Electronically Signed On 01-16-2017 19:45:18 EDT by Chloe Boone
--- NOTE | 2017-01-16 19:51 | ECGEPIP ---
Stationary ECG Study [facility] - ED Test Date: 2017-01-15 Pat Name: VIVIANA PEÑALOZA Department: Room: - Gender: F Lumber Loader: nader : 1940 Requested By: Barrington Carr Order Number: [id number] Reading MD: Chloe Boone Measurements Intervals [place] Rate: 63 P: 54 MN: 197 QRS: 6 QRSD: 93 T: 122 QT: 431 QTc: 443 Interpretive Statements SINUS RHYTHM LEFT VENTRICULAR HYPERTROPHY AND ST-T CHANGE VS ISCHEMIA DECREASED RATE 01/15/17 Electronically Signed On 01-16-2017 19:51:29 EDT by Chloe Boone
[2017-01-16] MEDS ORDERED: LEVEMIR (INSULIN DETEMIR) 1 UNITS/0.01ML SC SCH (21:00)
[2017-01-17 03:43] VITALS: BP 161/79
[2017-01-17 05:29] LABS: MEAN CORPUSCULAR HEMOGLOBIN 27.7 pg (27.0-33.0); MEAN CORPUSCULAR HGB CONC 32.8 g/dl (32.0-36.5); MEAN CORPUSCULAR VOLUME 84.5 fl (80.0-96.0); RED CELL DISTRIBUTION WIDTH 14.7 % (11.5-14.5); WHITE BLOOD COUNT 3.4 K/mm3 (4.0-10.0)
[2017-01-17] MEDS: SLF 3 ML SYR IV SCH (05:43)
[2017-01-17 05:47] LABS: CALCIUM LEVEL 8.2 MG/DL (8.8-10.2); CREATININE FOR GFR 1.57 MG/DL (0.55-1.02); GLOMERULAR FILTRATION RATE 41.4 (>39); MAGNESIUM LEVEL 1.9 MG/DL (1.8-2.4); POTASSIUM SERUM 3.9 MEQ/L (3.5-5.1)
[2017-01-17] MEDS: HumaLOG INSULIN (NovoLOG) PER UNIT SC SCH (07:53)
[2017-01-17 08:00] VITALS: BP 142/80
[2017-01-17 08:05] VITALS: BP 161/79
[2017-01-17] MEDS: SENOKOT S TAB PO SCH (08:05)
[2017-01-17] MEDS: CARVedilol 6.25 MG TAB PO SCH (08:05)
[2017-01-17] MEDS: AMIODARONE 200 MG TAB (PACERONE) PO SCH (08:05)
[2017-01-17] MEDS: APIXABAN 5 MG TAB (ELIQUIS) PO SCH (08:05)
[2017-01-17] MEDS: OMEPRAZOLE 20 MG CAP PO SCH (08:05)
[2017-01-17] MEDS: CETIRIZINE (ZyrTEC) 10 MG TAB PO SCH (08:05)
[2017-01-17] MEDS: amLODIPine 10 MG TAB PO SCH (08:05)
--- NOTE | 2017-01-17 15:14 | ECGEPIP ---
Stationary ECG Study [facility] Test Date: 2017-01-17 Pat Name: VIVIANA PEÑALOZA Department: Room: [place] [address] Gender: F Building Custodian: JAY : 1940 Requested By: BERNICE Boudreaux Order Number: [id number] Reading MD: Tremaine Bowers Measurements Intervals Snyder Rate: 56 P: 56 UT: 200 QRS: 11 QRSD: 98 T: 145 QT: 420 QTc: 406 Interpretive Statements SINUS BRADYCARDIA WITH OCCASIONAL SUPRAVENTRICULAR PREMATURE COMPLEXES LEFT VENTRICULAR HYPERTROPHY AND ST-T CHANGE Slower rate but otherwise unchanged from 01/16/17. Electronically Signed On 01-17-2017 15:14:36 EDT by Tremaine Bowers
--- NOTE | 2017-01-17 15:49 | IPN ---
DATE: 01/16/2017 SUBJECTIVE: Ms. Plascencia is feeling well today. She does feel weak, somewhat tired, although she has had more energy for getting up and moving around. No chest pain, no shortness of breath, no palpitations. OBJECTIVE: VITAL SIGNS: Temperature 98.7, pulse 65, respiratory rate 18, blood pressure 131/73. 95% on room air. Intake and output notable for negative fluid balance of minus 275. GENERAL: She is awake, appropriately interactive, pleasant conversant. Telemetry shows rate control with sinus rhythm. HEART: Regular rate and rhythm. LUNGS: Breathing is symmetrical and rested. Distal pulses 2+. Capillary refill less than 2 seconds. ABDOMEN: Soft, doughy, nontender. LABORATORY DATA: White cell count 3.7, hemoglobin 11.2, and platelets of 222. BUN 30, creatinine of 1.68. ASSESSMENT: This is a 76-year-old with symptomatic atrial flutter, status post cardioversion, day one. PLAN: 1. Cardiovascular: The patient continues to be anticoagulated at this point continuing on Eliquis. Was successfully cardioverted yesterday. Is in sinus rhythm. Will continue to monitor her today on telemetry. Continue her amiodarone and possibly discharge her tomorrow. 2. The patient has diabetes, is insulin dependent on insulin. 3. The patient has gout. 4. The patient has hypertension. She has been restarted on her calcium channel eric with hold parameters. 5. The patient has history of gastroesophageal reflux disease (GERD) on omeprazole. 6. The patient has been treated for obstructive sleep apnea in the past and is unable to tolerate bilevel positive airway pressure (BiPAP). 7. Deep venous thrombosis (DVT) prophylaxis, low-dose Eliquis. 8. The patient was seen by physical therapy.
--- NOTE | 2017-01-18 06:29 | DSES ---
DATE OF ADMISSION: 01/15/2017 DATE OF DISCHARGE: 01/17/2017 SPECIALISTS INVOLVED DURING HER CARE: Dr. Watkins PROCEDURES PERFORMED DURING HER STAY: 1. Cardioversion. 2. Conscious sedation. No complications during her stay. DISCHARGE DIAGNOSES: 1. Symptomatic atrial flutter. 2. Rheumatoid arthritis not on any disease-modifying drugs. 3. Hypertension. 4. Anemia with iron allergy. 5. History of malignant melanoma. 6. Insulin-dependent diabetes. 7. Gout. 8. History of bilateral iliac artery thrombosis. 9. History of temporal arteritis. 10. History of transient ischemic attacks (TIAs). SUMMARY OF PRESENTATION: This is a 76-year-old who presented with symptomatic atrial flutter with normal rate. This has been going on for some time. She had been offered cardioversion in the past and declined. She came to the emergency department symptomatic after a trip to the hospital for a blood draw, was seen in consultation by Dr. Watkins, who performed cardioversion. Patient resumed sinus rhythm. She was monitored on telemetry for over 36 hours. She continued in sinus rhythm, was initially quite weak, became stronger, was able to walk without difficulty. Today is feeling well enough to go home. She has no complaints of pain, chest pain, shortness of breath. Temperature 98.3, pulse 58, respiratory rate 18, blood pressure 142/80, 99% in room air. She is awake and appropriately interactive, pleasantly conversant. Telemetry shows her to be in sinus rhythm with a rate in the high 50s to low 60s. Breathing is symmetrical and rested. Heart is a regular rate and rhythm. Abdomen is soft, doughy, nontender. White cell count 3.4, hemoglobin 11.1, and platelets of 216. BUN 28, creatinine 1.57, which is improving toward her baseline of right around this level or perhaps slightly lower to 1.4. DISCHARGE INSTRUCTIONS: Includes the following 1. Followup with Dr. Watkins and Dr. Licea as previously scheduled. 2. Continue amiodarone 200 mg by mouth twice daily, Norvasc 10 mg by mouth daily, apixaban 5 mg by mouth twice daily, Coreg 6.25 mg twice daily, chlorthalidone 25 mg daily, Lantus 32 units subcutaneously daily at bedtime, and omeprazole 20 mg daily.
== END 2017-01-17 10:43 | disposition home or self-care (01) | DRG 310 ==
LOC: M ED 15:54 → M ED INP 15:55 → M PCU 20:45
PROVIDERS: ADMIT Internal Medicine; ATTEND Internal Medicine
PROC: 5A2204Z Restoration of Cardiac Rhythm, Single (ICD-10-PCS; principal; 2017-01-15)
DX: I48.92 Unspecified atrial flutter (principal); M10.9 Gout, unspecified; I11.9 Hypertensive heart disease without heart failure; M35.3 Polymyalgia rheumatica; E11.9 Type 2 diabetes mellitus without complications; D64.9 Anemia, unspecified; K21.9 Gastro-esophageal reflux disease without esophagitis; G62.9 Polyneuropathy, unspecified; Z86.718 Personal history of other venous thrombosis and embolism; Z85.820 Personal history of malignant melanoma of skin; Z79.4 Long term (current) use of insulin; Z79.899 Other long term (current) drug therapy; Z88.8 Allergy status to other drugs, medicaments and biological substances; Z86.73 Personal history of transient ischemic attack (TIA), and cerebral infarction without residual deficits; Z79.01 Long term (current) use of anticoagulants; Z88.2 Allergy status to sulfonamides; Z88.0 Allergy status to penicillin; Z88.6 Allergy status to analgesic agent; Z87.891 Personal history of nicotine dependence; Z82.8 Family history of other disabilities and chronic diseases leading to disablement, not elsewhere classified

== ENCOUNTER → 2017-01-15 | Outpatient (CLI) | payer MEDICARE, MEDICAID ==
[~2017-01-15] MED LIST changes: +AMIO20TA; +AMIO20TA PO; +AMLO10TA2; +AMLO10TA2 PO; +CARV6.25 PO; +CHLO25TA PO; +ELIQ5TAB; +ELIQ5TAB PO; +FURO20TA2 PO; +OMEP20CA3 PO
== END ==
LOC: M LAB 12:37
PROVIDERS: ATTEND Internal Medicine Cardiovascular Disease
DX: I10 Essential (primary) hypertension (principal)

== ENCOUNTER 2017-01-21 16:31 | Inpatient (IN) | payer MEDICARE, MEDICAID ==
[~2017-01-21] VITALS: Ht 162.6 cm; Wt 96.4 kg
[~2017-01-21 16:31] MED LIST changes: +AMIO20TA; +AMIO20TA PO; +AMLO10TA2; +AMLO10TA2 PO; +CARV6.25 PO; +CHLO25TA PO; +ELIQ5TAB; +ELIQ5TAB PO; +FURO20TA2 PO; +OMEP20CA3 PO
[2017-01-21 17:17] LABS: BASO % 0.1 % (0.0-1.0); EOS % 0.4 % (0.0-3.0); LARGE UNSTAINED CELL # 0.2 K/mm3 (0.0-0.4); LARGE UNSTAINED CELL % 3.9 % (0.0-4.0); LYMPH # 1.9 K/mm3 (1.5-4.5); LYMPH % 43.7 % (24.0-44.0); MEAN CORPUSCULAR HEMOGLOBIN 27.7 pg (27.0-33.0); MEAN CORPUSCULAR HGB CONC 33.5 g/dl (32.0-36.5); MEAN CORPUSCULAR VOLUME 82.5 fl (80.0-96.0); MONO # 0.3 K/mm3 (0.0-0.8); MONO % 6.4 % (0.0-5.0); NEUTROPHILS % 45.4 % (36.0-66.0); PLATELET COUNT, AUTOMATED 235 k/mm3 (150-450); RED CELL DISTRIBUTION WIDTH 14.4 % (11.5-14.5); WHITE BLOOD COUNT 4.4 K/mm3 (4.0-10.0)
[2017-01-21 17:48] LABS: ALBUMIN/GLOBULIN RATIO 0.48 (1.00-1.93); ALKALINE PHOSPHATASE 91 U/L (45-117); ALT/SGPT 34 U/L (12-78); ANION GAP 8 MEQ/L (8-16); AST/SGOT 31 U/L (15-37); BILIRUBIN,DIRECT 0.1 MG/DL (0.0-0.2); BILIRUBIN,TOTAL 0.3 MG/DL (0.2-1.0); BLOOD UREA NITROGEN 25 MG/DL (7-18); CALCIUM LEVEL 8.1 MG/DL (8.8-10.2); CARBON DIOXIDE LEVEL 26 MEQ/L (21-32); CHLORIDE LEVEL 103 MEQ/L (98-107); CREATININE FOR GFR 1.75 MG/DL (0.55-1.02); FREE T4 1.23 NG/DL (0.76-1.46); GLOMERULAR FILTRATION RATE 36.5 (>39); GLUCOSE, FASTING 194 MG/DL (83-110); SODIUM LEVEL 137 MEQ/L (136-145); TOTAL PROTEIN 9.3 GM/DL (6.4-8.2)
--- NOTE | 2017-01-21 18:27 | REP ---
CHEST TWO VIEWS: REASON: Chest pain. COMPARISON: Multiple, latest 01/15/2017, a portable exam. There is global cardiomegaly status quo. This is somewhat flask shaped. There is no change in appearance of lung trujillo. No acute patchy parenchymal opacities or pleural effusions have developed. There is no change in the osseous structures. IMPRESSION: Global cardiomegaly. Pericardiac effusion can not be ruled out by this exam. Signed by Mane Ruiz DO 01/21/2017 06:44 P
[2017-01-21 19:46] VITALS: O2SAT 98
--- NOTE | 2017-01-21 21:07 | ECGEPIP ---
Stationary ECG Study [facility] - ED Test Date: 2017-01-21 Pat Name: VIVIANA PEÑALOZA Department: Room: - Gender: F Hospice Nurse Practitioner: ct : 1940 Requested By: ROMMEL Reddy Order Number: [id number] Reading MD: Chloe Boone Measurements Intervals [place] Rate: 57 P: 49 [place]: 185 QRS: 6 QRSD: 93 T: 83 QT: 446 QTc: 436 Interpretive Statements SINUS BRADYCARDIA LEFT VENTRICULAR HYPERTROPHY AND ST-T CHANGE VS ISCHEMIA DELAYED R PROGRESSION SIMILAR 01/17/17 Electronically Signed On 01-21-2017 21:07:25 EDT by Chloe Boone
--- NOTE | 2017-01-21 23:10 | REPUSA ---
CT of the chest without contrast Clinical statement: Shortness of breath. Technique: Multiple axial CT images were obtained with 5 mm cuts through the chest without administra tion of contrast. Coronal reconstructions were also obtained. No comparison is available. Findings: There is no thoracic lymphadenopathy. The visualized portions of the thyroid gland is unrem arkable. There are no pericardial or pleural effusions. There is linear atelectasis in the right midd le lobe. The lungs are otherwise clear. Limited imaging of the upper abdomen does not demonstrate any acute abnormalities. There are no suspicious osseous lesions. Impression: Linear atelectasis in the right middle lobe. Otherwise unremarkable study.
[2017-01-21] MEDS ORDERED: CETI10TA PO (23:32)
[2017-01-21] MEDS ORDERED: ARTI99.0 OU (23:32)
[2017-01-21] MEDS ORDERED: CLEADRO8 OU (23:33)
[2017-01-22] MEDS ORDERED: ACETAMINOPHEN 325 MG TAB As Ordered ONE (01:08)
[2017-01-22] MEDS ORDERED: ACETAMINOPHEN TAB 650MG DOSE (2X325MG) PO ONE (01:15)
[2017-01-22] MEDS ORDERED: ONDANSETRON 4MG/2ML VIAL (J2405) IV PRN (01:15)
[2017-01-22] MEDS ORDERED: FUROSEMIDE 40 MG/4 ML VIAL (J1940) IV ONE (01:15)
[2017-01-22] MEDS: LEVEMIR (INSULIN DETEMIR) 1 UNITS/0.01ML SC SCH ×2 (01:30→20:57)
[2017-01-22] MEDS: amLODIPine 10 MG TAB PO SCH ×2 (01:30→08:39)
--- NOTE | 2017-01-22 02:00 | REPUSA ---
CT of the head Clinical history: dizziness. Comparison: 03/21/2016. Protocol: Multiple axial CT images obtained with 5 mm slice thickness were obtained through the head without administration of contrast. Findings: The ventricles and sulci are symmetric but prominent in size bilaterally. There are periven tricular areas of low attenuation throughout the deep white matter. There is no evidence of acute hem orrhage or infarct. There is no midline shift, mass effect, or extra-axial fluid collection. The osse ous structures are unremarkable. The visualized paranasal sinuses and mastoid air cells are clear. Impression: No acute hemorrhage or infarct. 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
[2017-01-22] MEDS ORDERED: MECLIZINE 12.5 MG TAB PO PRN (02:30)
--- NOTE | 2017-01-22 02:48 | HPEPDOC ---
Medical History and Physical Date of Admission Jan 22, 2017 at 01:13 History and Physical PRIMARY CARE PROVIDER: ATTENDING: Barbara Prieto MD CHIEF COMPLAINT: SOB HISTORY OF PRESENT ILLNESS: This is a 76-year-old female with a past history of atrial flutter status post cardioversion earlier this month, on Eliquis, SHARDA unable to tolerate CPAP, history of TIA 4, diabetes, hypertension, rheumatoid arthritis, malignant melanoma status post excision who presents complaining of shortness of breath on exertion. Patient states she's been having dyspnea on exertion, dizziness, frontal headache, nonproductive cough that started Wednesday. Patient is been nauseous since then. Patient states that her dizziness is more so when she turns her head to each side and has abrupt head movements. Patient states her dyspnea and exertion has been getting progressively worse over the last week. She follows up with Dr. Watkins for her atrial flutter for which she is on flecainide and Eliquis. States that her chlorthalidone was cut in half over a week ago. Since then the patient has noted increased swelling in her lower extremities. Patient also has a 5 pound weight gain over the past 2 weeks. She typically has 4 pillow orthopnea which she attributes to her obstructive sleep apnea. No chest pain/palpitations/syncopal episodes. PAST MEDICAL HISTORY:As per HPI PAST SURGICAL HISTORY: ?Left iliac artery occlusion and vascular repair, left wrist surg, right finger melanoma excision. SOCIAL HISTORY: Remote h/o tobacco use, denies any current use. Denies alcohol abuse or illicit drug use. FAMILY HISTORY: Non contrib. ALLERGIES: Please see below. REVIEW OF SYSTEMS: HEENT: Denies sore throat/headache CARDIOVASCULAR: Denies chest pain/palpitations RESPIRATORY: + shortness of breath/cough GASTROINTESTINAL: denies nausea/vomiting GENITOURINARY: Denies dysuria/urinary urgency. MUSCULOSKELETAL: Denies myalgias/arthralgias NEUROLOGICAL: Denies any focal weakness Rest of ROS negative. HOME MEDICATIONS: Please see below. PHYSICAL EXAMINATION: Vitals: (see below) General: No acute distress, laying comfortably in bed. HEENT: Moist mucous membranes. Neck: No JVD or lymphadenopathy Cardiac: RRR, No murmurs Pulm: Coarse crackles b/l bases. No wheezing, rhonchi Abd: NT/ND + BS Ext: Trace to 1+ pitting edema BLE. No cyanosis. LABORATORY DATA: See below. IMAGING: CXR 01/21/17 IMPRESSION:Global cardiomegaly. Pericardiac effusion can not be ruled out by this exam. CT Chest 01/21/17 Impression: Linear atelectasis in the right middle lobe. Otherwise unremarkable study. CT Head 01/21/17 Impression: No acute hemorrhage or infarct. Findings are consistent with age-related atrophy and chronic small vessel ischemic disease. MICROBIOLOGY: Please see below. ASSESSMENT/PLAN: 1. Dyspnea on exertion, questionable whether this is likely to fluid retention given her recent decrease in chlorthalidone, increasing lower some edema as well as pound weight. Patient does have a elevated BNP, crackles at the bases. Will give a trial of Lasix. Does have a globular appearing cardiac silhouette on chest x-ray. We'll obtain echocardiogram to rule out pericardial effusion, as well as evaluate valvular function/AF. Resp panel negative. She is aware that her SHARDA may be contributing to her dyspnea, however she is unable to tolerate CPAP and will try it again. Although it is less likely since the patient is on Eliquis, we will obtain a VQ scan to rule out PE as the patient does have a history of malignant melanoma. 2. Vertigo- nonspecific. Patient states exacerbated with turning of her head. Questionable whether this is BPPV, however given the patient's chronic back pain , she is unable to perform Nanette-Hallpike maneuver. CT head negative. Will continue to monitor. Meclizine PRN. 3. Hypertension- uncontrolled. Patient is on amlodipine as well as Coreg. She is allergic to hydralazine. We'll start the patient on clonidine. Insulin-dependent diabetes mellitus- on Levemir. Flanks consulted. 4. Atrial flutter- status post cardioversion. On amiodarone and Eliquis. Currently in sinus rhythm. 5. SHARDA - unable to tolerate CPAP 6. RA - not on disease motifying agents - will need outpt f/u. 7. H/o TIA x 4 - on Eliquis. Allergy to statins. DVT prophylaxis- Cont Eliquis Patient will be followed by Dr. Mireles starting 01/22/17 at 7am. Vital Signs Vital Signs Date Time Temp Pulse Resp B/P Pulse Ox O2 Delivery O2 Flow Rate FiO2 01/21/17 16:49 98.3 67 18 183/89 98 Room Air Laboratory Data Labs 24H Laboratory Tests 2 01/21/17 17:01: Aspartate Amino Transf (AST/SGOT) 31, Alanine Aminotransferase (ALT/SGPT) 34, Alkaline Phosphatase 91, Total Bilirubin 0.3, Direct Bilirubin 0.1, Albumin 3.0L , Albumin/Globulin Ratio 0.48L, Anion Gap 8, B-Type Natriuretic Peptide 518H, White Blood Count 4.4, Red Blood Count 4.15, Hemoglobin 11.5L, Hematocrit 34.3L , Mean Corpuscular Volume 82.5, Mean Corpuscular Hemoglobin 27.7, Mean Corpuscular Hemoglobin Concent 33.5, Red Cell Distribution Width 14.4, Platelet Count 235, Neutrophils (%) (Auto) 45.4, Lymphocytes (%) (Auto) 43.7, Monocytes ( %) (Auto) 6.4H, Eosinophils (%) (Auto) 0.4, Basophils (%) (Auto) 0.1, Neutrophils # (Auto) 2.0, Lymphocytes # (Auto) 1.9, Monocytes # (Auto) 0.3, Eosinophils # (Auto) 0.0, Basophils # (Auto) 0.0, Calcium Level 8.1L, Creatine Kinase MB 1.3, Creatine Kinase MB Relative Index 1.10, D-Dimer, Quantitative 703.8H, Free Thyroxine 1.23, Glomerular Filtration Rate 36.5L, Large Unclassified Cells # 0.2, Large Unclassified Cells % 3.9, Thyroid Stimulating Hormone (TSH) 6.220H, Total Creatine Kinase 118, Total Protein 9.3H, Troponin I < 0.02 CBC/BMP Laboratory Tests 01/21/17 17:01 Red Blood Count 4.15, Mean Corpuscular Volume 82.5, Mean Corpuscular Hemoglobin 27.7, Mean Corpuscular Hemoglobin Concent 33.5, Red Cell Distribution Width 14.4 , Neutrophils (%) (Auto) 45.4, Lymphocytes (%) (Auto) 43.7, Monocytes (%) (Auto ) 6.4 H, Eosinophils (%) (Auto) 0.4, Basophils (%) (Auto) 0.1, Neutrophils # ( Auto) 2.0, Lymphocytes # (Auto) 1.9, Monocytes # (Auto) 0.3, Eosinophils # (Auto ) 0.0, Basophils # (Auto) 0.0 Microbiology Microbiology 01/21/17 Influenza Virus Type A Antigen - Final, Complete 01/21/17 Influenza Virus Type B Antigen - Final, Complete Home Medications Scheduled Amiodarone HCl (Amiodarone HCl) 200 Mg Tab 200 MG PO BID Amlodipine Besylate (Amlodipine Besylate) 10 Mg Tab 10 MG PO DAILY Apixaban Base (Eliquis) 5 Mg Tab 5 MG PO BID Carvedilol (Carvedilol) 6.25 Mg Tab 6.25 MG PO BID Cetirizine HCl (Cetirizine HCl) 10 Mg Tab 10 MG PO DAILY Chlorthalidone (Chlorthalidone) 25 Mg Tab 25 MG PO DAILY Insulin Glargine (Lantus) 1 Units/0.01 Ml Susp 32 UNITS SC QHS Scheduled PRN (Clear Eyes For Dry Eyes 1-0.25 %) 1 Elver Elver 1 DROP OU QID PRN PRN DRY EYES Allergies Coded Allergies: Sulfa Drugs (Verified Allergy, Severe, ANAPHALYTIC SHOCK, 01/21/17) Sulfa Drugs Cross Reactors (Verified Allergy, Severe, ANAPHALYTIC SHOCK, ) Penicillins (Verified Allergy, Intermediate, SWELLING, 01/21/17) Penicillins Cross Reactors (Verified Allergy, Intermediate, SWELLING, 01/21) Common Ragweed (Verified Allergy, Unknown, 01/21/17) Hydralazine (Verified Allergy, Unknown, 01/21/17) Lisinopril (Verified Allergy, Unknown, 01/21/17) Nitroglycerin (Verified Allergy, Unknown, 01/21/17) Iron (Verified Adverse Reaction, Intermediate, PANIC ATTACKS, A FIB, ) Metformin (Verified Adverse Reaction, Intermediate, KIDNEY TROUBLE, ) Aspirin (Verified Adverse Reaction, Mild, BLEEDING, 01/21/17) Atorvastatin (Verified Adverse Reaction, Mild, UPET STOMACH, 01/21/17) BARBARA PRIETO MD Jan 22, 2017 02:47 BARBARA PRIETO MD Jan 22, 2017 02:47
[2017-01-22] MEDS ORDERED: cloNIDine 0.1 MG TAB PO ONE (03:00)
[2017-01-22 03:09] LABS: VENOUS BASE EXCESS -0.2 (-2.0-2.0); VENOUS O2 SATURATION 83.8 % (60.0-80.0); VENOUS PARTIAL PRESSURE CO2 42.2 mmHg (38.0-50.0); VENOUS PARTIAL PRESSURE O2 50.2 mmHg (30.0-50.0); VENOUS TOTAL CO2 26.2 MEQ/L (24.0-28.0)
[2017-01-22 07:07] LABS: MEAN CORPUSCULAR HEMOGLOBIN 27.5 pg (27.0-33.0); MEAN CORPUSCULAR HGB CONC 33.1 g/dl (32.0-36.5); MEAN CORPUSCULAR VOLUME 83.2 fl (80.0-96.0); RED CELL DISTRIBUTION WIDTH 14.5 % (11.5-14.5); WHITE BLOOD COUNT 4.2 K/mm3 (4.0-10.0)
[2017-01-22 07:47] LABS: ALBUMIN 2.7 GM/DL (3.2-5.2); ALBUMIN/GLOBULIN RATIO 0.42 (1.00-1.93); BILIRUBIN,TOTAL 0.4 MG/DL (0.2-1.0); CALCIUM LEVEL 8.7 MG/DL (8.8-10.2); CREATININE FOR GFR 1.47 MG/DL (0.55-1.02); GLOMERULAR FILTRATION RATE 44.7 (>39); MAGNESIUM LEVEL 1.8 MG/DL (1.8-2.4); POTASSIUM SERUM 3.7 MEQ/L (3.5-5.1); TOTAL PROTEIN 9.2 GM/DL (6.4-8.2)
[2017-01-22] MEDS: CARVedilol 6.25 MG TAB PO SCH ×2 (08:38→20:57)
[2017-01-22] MEDS: APIXABAN 5 MG TAB (ELIQUIS) PO SCH ×2 (08:38→20:57)
[2017-01-22] MEDS: AMIODARONE 200 MG TAB (PACERONE) PO SCH ×2 (08:39→20:57)
[2017-01-22] MEDS: CETIRIZINE (ZyrTEC) 10 MG TAB PO SCH (08:39)
[2017-01-22] MEDS ORDERED: CHLORTHALIDONE 25 MG TAB PO SCH (09:00)
--- NOTE | 2017-01-22 11:13 | REPUSA ---
Clinical history: Pain, swelling. Findings: The common femoral, superficial femoral, popliteal, and other deep venous structures compre ss normally and demonstrate normal color Doppler flow. Normal venous waveforms with augmentation are seen. Impression: No evidence of deep vein thrombosis in either femoral popliteal venous system.
[2017-01-22 12:00] VITALS: BP 152/75
[2017-01-22] MEDS ORDERED: BISACODYL 5 MG TAB PO ONE (12:45)
[2017-01-22] MEDS ORDERED: MIRALAX *UNIT DOSE* 17GM PACKET PO PRN (12:45)
[2017-01-22] MEDS ORDERED: BISACODYL 5 MG TAB PO PRN (12:45)
[2017-01-22] MEDS ORDERED: SENOKOT S TAB PO PRN (12:45)
[2017-01-22] MEDS ORDERED: MOM 30ML SUSPENSION UDC PO PRN (12:45)
--- NOTE | 2017-01-22 13:35 | REP ---
V/Q SCAN: Following the intravenous administration of the 5.5 mCi of technetium-99m tagged MAA and the inhalation of 1 mCi of technetium-99m DTPA aerosol, multiple images of the lungs are obtained in various projections. Comparison made with multiple prior exams, most recent of which is 07/18/2012. There are a few scattered bilateral matching subsegmental ventilation and perfusion defects in both upper lobes and in the left lower lobe. There is cardiomegaly. No areas of V/Q mismatch are seen. Findings are similar to the prior studies. IMPRESSION: Low probability of pulmonary embolism. Signed by Tye Fuentes MD 01/22/2017 04:17 P
[2017-01-22 16:00] VITALS: BP 142/72
[2017-01-22 19:52] VITALS: BP 156/80
[2017-01-22 23:59] VITALS: BP 144/71
[2017-01-23 04:00] VITALS: BP 141/73
[2017-01-23 05:32] LABS: MEAN CORPUSCULAR HEMOGLOBIN 27.4 pg (27.0-33.0); MEAN CORPUSCULAR HGB CONC 32.7 g/dl (32.0-36.5); RED CELL DISTRIBUTION WIDTH 14.6 % (11.5-14.5); WHITE BLOOD COUNT 4.4 K/mm3 (4.0-10.0)
[2017-01-23 05:51] LABS: ALBUMIN 2.9 GM/DL (3.2-5.2); ALBUMIN/GLOBULIN RATIO 0.4 (1.00-1.93); BILIRUBIN,TOTAL 0.4 MG/DL (0.2-1.0); CALCIUM LEVEL 8.2 MG/DL (8.8-10.2); CREATININE FOR GFR 1.86 MG/DL (0.55-1.02); GLOMERULAR FILTRATION RATE 34.1 (>39); MAGNESIUM LEVEL 1.9 MG/DL (1.8-2.4); TOTAL PROTEIN 10.2 GM/DL (6.4-8.2)
[2017-01-23 07:50] VITALS: BP 137/74
[2017-01-23] MEDS: amLODIPine 10 MG TAB PO SCH (08:45)
[2017-01-23] MEDS: CETIRIZINE (ZyrTEC) 10 MG TAB PO SCH (08:45)
[2017-01-23] MEDS: APIXABAN 5 MG TAB (ELIQUIS) PO SCH ×2 (08:45→21:14)
[2017-01-23] MEDS: CARVedilol 3.125 MG TAB PO SCH ×2 (08:46→21:00)
[2017-01-23] MEDS: AMIODARONE 200 MG TAB (PACERONE) PO SCH ×2 (08:46→21:14)
[2017-01-23] MEDS ORDERED: cloNIDine 0.1 MG TAB PO SCH (09:00)
--- NOTE | 2017-01-23 12:24 | ECHO ---
DATE OF STUDY: 01/23/2017 REFERRING PHYSICIAN: Dr. Sai Prieto INDICATION: Shortness of breath. HEIGHT: 64 inches. WEIGHT: 215 pounds. MEASUREMENTS: Aortic root: 3.2 cm Proximal ascending aorta: 3.6 cm Left atrium: 4.1 cm Left ventricle diastole: 4.1 cm Left ventricle systole: 2.9 cm Ventricular septum: 1.32 cm Posterior wall: 1.45 cm LVOT: 1.9 cm Right ventricle: 4.1 cm Inferior vena cava: 2.9 cm DOPPLER MEASUREMENTS: Aortic valve velocity: 190 cm/s LVOT velocity: 170 cm/s LVOT VTI: 36.0 cm Mitral E velocity: 96.7 cm/s Mitral A velocity: 116 cm/s Mitral deceleration time: 243 ms Severe tricuspid regurgitation. Estimated right ventricle systolic pressure: At least 66 mmHg assuming right pressure of at least 20 mmHg based on inferior vena cava plethora. MITRAL ANNULAR TISSUE DOPPLER: E prime lateral: 9.1 cm/s E prime septal: 6.4 cm/s DESCRIPTION: Rhythm was predominantly sinus bradycardia. Image quality was fair. No pericardial effusion. This is a 2D, M-mode, color flow Doppler, and pulse wave Doppler examination including mitral annular tissue Doppler. CONCLUSIONS: 1. Suggestive of severe elevation of estimated right ventricle systolic pressure (at least 66 mmHg). Normal right ventricle size and systolic function. Severe tricuspid regurgitation with structurally normal-appearing tricuspid leaflets. Systolic flow reversal in the hepatic veins, consistent with severe tricuspid regurgitation. Inferior vena cava plethora suggestive of elevated central venous pressure of at least 20 mmHg. 2. Mild concentric left ventricle hypertrophy. Hyperdynamic left ventricular (LV) systolic function. Left ventricular ejection fraction (LVEF) 80% by visual estimate. No regional wall motion abnormalities of the left ventricle. Grade 1 LV diastolic dysfunction (impaired relaxation filling pattern); no E/A fusion. 3. Moderate aortic valve sclerosis of a three-cusp aortic valve. No aortic stenosis or aortic regurgitation. 4. Moderate mitral annular calcification. No mitral regurgitation or mitral stenosis. 5. Mild left atrial dilatation.
[2017-01-23 14:00] VITALS: BP 158/82
--- NOTE | 2017-01-23 14:55 | IPN ---
DATE: 01/23/2017 The patient complains of some diaphoresis and not feeling well this morning. Glucose level was 80. The patient felt better with administration of hypoglycemic protocol. Her Levemir insulin has been decreased to 18 units nightly. On telemetry, the patient had episodes of bradycardia. Ventricular rate was slowest at 46 yesterday morning and ranges between 46 to 68. The patient denies any lightheadedness, dizziness, fevers, chills, shortness of breath, chest pain, pressure, tightness, near syncope, headaches, nausea, vomiting or abdominal pain. Vital Signs: Temperature 96.1, pulse 53, respiratory rate 19, blood pressure 137/74, 98% on room air. General: The patient is wake, alert, oriented to person, place and time. Lungs are clear to auscultation. No wheezing, rales or rhonchi. Heart: S1, S2. Sinus rhythm. Abdomen: Soft, nontender, nondistended. Positive bowel sounds. Extremities: No cyanosis, clubbing or any pitting edema. Laboratory data have been reviewed, microbiology and imaging studies. ASSESSMENT AND PLAN: This is a 76-year-old female, history of atrial flutter, status post cardioversion earlier this month, on chronic Eliquis by Dr. Watkins, obstructive sleep apnea, unable to tolerate continuous positive airway pressure (CPAP), transient ischemic attack (TIA) times four, diabetes, hypertension, rheumatic arthritis, malignant melanoma status post excision, presents with shortness of breath and exertion. CT chest, V/Q scan showed negative pulmonary embolism (PE). CT chest shows no pulmonary infiltrate, consolidation, effusion. The patient received intravenous (IV) Lasix yesterday with result in increase in creatinine to 1.[address] of the head was unremarkable. Vascular ultrasound of the lower extremities shows negative deep vein thrombosis (DVT). ASSESSMENT AND PLAN: 1. Sinus bradycardia, most likely medication induced. Therefore, we will discontinue current dose of Coreg, decrease to 3.125 mg twice a day with holding parameters. Continue on amiodarone. Prior history of atrial flutter, currently sinus maci. 2. Episodes of diaphoresis with glucose of 80, not truly qualifying as severe hypoglycemic episode; however, the patient's Levemir insulin will be decreased as the patient is symptomatic with glucose less than 100. 3. Acute kidney injury on chronic renal failure, stage III. Most likely secondary to Lasix given yesterday. Will hold off on the patient's chlorthalidone. Recheck a metabolic panel in the morning for blood pressure control. Continue on Norvasc. Clonidine has been discontinued due to bradycardia. 4. Obstructive sleep apnea, on continuous positive airway pressure (CPAP). Oxygen nightly. 5. History of malignant melanoma. Pulmonary embolism (PE) has been ruled out. The patient had resection years ago. 6. History of pulmonary embolism. No current PE on CT and V/Q scan. The patient was previously treated with anticoagulation. DISPOSITION: If the patient is asymptomatic and vital signs are stable, may be discharged home in the morning or on Wednesday.
[2017-01-23] MEDS: LEVEMIR (INSULIN DETEMIR) 1 UNITS/0.01ML SC SCH ×2 (21:15→21:53)
[2017-01-23 22:00] VITALS: BP 183/87
[2017-01-24 02:00] VITALS: BP 152/72
[2017-01-24 05:30] LABS: MEAN CORPUSCULAR HEMOGLOBIN 27.3 pg (27.0-33.0); MEAN CORPUSCULAR VOLUME 82.6 fl (80.0-96.0); RED CELL DISTRIBUTION WIDTH 14.3 % (11.5-14.5); WHITE BLOOD COUNT 4.4 K/mm3 (4.0-10.0)
[2017-01-24 05:47] LABS: ALBUMIN 2.8 GM/DL (3.2-5.2); ALBUMIN/GLOBULIN RATIO 0.4 (1.00-1.93); BILIRUBIN,TOTAL 0.3 MG/DL (0.2-1.0); CALCIUM LEVEL 8.3 MG/DL (8.8-10.2); CREATININE FOR GFR 1.56 MG/DL (0.55-1.02); GLOMERULAR FILTRATION RATE 41.7 (>39); MAGNESIUM LEVEL 1.8 MG/DL (1.8-2.4); POTASSIUM SERUM 3.8 MEQ/L (3.5-5.1); TOTAL PROTEIN 9.8 GM/DL (6.4-8.2)
[2017-01-24 06:00] VITALS: BP 144/71
[2017-01-24] MEDS: CARVedilol 3.125 MG TAB PO SCH (09:00)
[2017-01-24] MEDS: APIXABAN 5 MG TAB (ELIQUIS) PO SCH ×2 (09:37→21:42)
[2017-01-24] MEDS: amLODIPine 10 MG TAB PO SCH (09:37)
[2017-01-24] MEDS: AMIODARONE 200 MG TAB (PACERONE) PO SCH ×2 (09:37→21:43)
[2017-01-24] MEDS: CETIRIZINE (ZyrTEC) 10 MG TAB PO SCH (09:38)
--- NOTE | 2017-01-24 11:05 | IPN ---
DATE: 01/24/2017 The patient has been experiencing sinus bradycardia, ventricular rate of 50, no changes in blood pressure while maintaining 130-150. No complaints of diaphoresis, hypoglycemia. The patient states that she has had multiple allergies with hydralazine and lisinopril. Temperature 98.1, pulse 51, respiratory rate 20, blood pressure 144/71, 97% on room air. Lungs are clear to auscultation. No wheezing, rales or rhonchi. Heart: S1, S2, sinus rhythm. Abdomen is soft, nontender, nondistended. Positive bowel sounds. Extremities: Chronic 1+ pitting edema. LABORATORY DATA: Has been reviewed. Creatinine has improved to 1.56 from 1.86. ASSESSMENT AND PLAN: This is a 76-year-old female with a history of atrial flutter, status post cardioversion earlier this month, on chronic Eliquis by Dr. Watkins, sleep apnea, unable to tolerate continuous positive airway pressure (CPAP), transient ischemic attack (TIA) times four, diabetes, hypertension, malignant melanoma, status post excision, presents with shortness of breath on exertion. The patient complained of diaphoresis and dizziness, lightheadedness at home. On her heart monitor, had a heart rate of 38. Due to complaints of shortness of breath, CT chest, VQ scan negative for pulmonary embolism (PE). The patient received intravenous (IV) Lasix, worsening creatinine to 1.86. CT of the head was unremarkable. Venous Dopplers lower extremity: No deep vein thrombosis (DVT). CURRENT ISSUES: 1. Sinus bradycardia. Most likely medication induced. I have decreased her home dose of 6.125 twice a day to 3.125 twice a day, with persistent bradycardia; therefore, will decrease to daily with holding parameters. 2. Episodes of diaphoresis. Glucose of 80. We have decreased the patient's long-acting insulin. Continue consistent carbohydrate diet and hypoglycemic protocol. 3. Acute kidney injury on chronic renal failure stage III, baseline creatinine. We have held the patient's diuretic for 1 day. 4. Hypertension, uncontrolled. We have decreased the patient's Coreg. She has multiple allergies to lisinopril, hydralazine, limiting our choices. Currently on Norvasc. Also allergic to nitroglycerine. 5. History of malignant melanoma and pulmonary embolism (PE) in the past, PE on imaging studies. The patient had resection of malignant melanoma years ago. 6. Obstructive sleep apnea, on continuous positive airway pressure (CPAP). Not tolerating well. Primary care physician arranging for replacement as an outpatient.
--- NOTE | 2017-01-24 13:34 | ECGEPIP ---
Stationary ECG Study [facility] Test Date: 2017-01-24 Pat Name: VIVIANA PEÑALOZA Department: Room: [place] [address] Gender: F Improvement Nurse: JAY : 1940 Requested By: SYLVIE BRAMBILA Order Number: [id number] Reading MD: Thong Ware Measurements Intervals [place] Rate: 51 P: 51 [place]: 204 QRS: 13 QRSD: 97 T: 114 QT: 465 QTc: 429 Interpretive Statements SINUS BRADYCARDIA LEFT VENTRICULAR HYPERTROPHY AND ST-T CHANGE No significant change compared with 01/21/2017. Electronically Signed On 01-24-2017 13:34:30 EDT by Thong Ware
[2017-01-24] MEDS: LEVEMIR (INSULIN DETEMIR) 1 UNITS/0.01ML SC SCH (21:43)
[2017-01-24 22:00] VITALS: BP 156/88
[2017-01-25 06:00] VITALS: BP 148/73
[2017-01-25 06:45] LABS: MEAN CORPUSCULAR HEMOGLOBIN 27.5 pg (27.0-33.0); MEAN CORPUSCULAR HGB CONC 32.9 g/dl (32.0-36.5); MEAN CORPUSCULAR VOLUME 83.7 fl (80.0-96.0); RED CELL DISTRIBUTION WIDTH 14.2 % (11.5-14.5); WHITE BLOOD COUNT 4.1 K/mm3 (4.0-10.0)
[2017-01-25 07:03] LABS: ALBUMIN 2.6 GM/DL (3.2-5.2); ALBUMIN/GLOBULIN RATIO 0.37 (1.00-1.93); BILIRUBIN,TOTAL 0.3 MG/DL (0.2-1.0); CALCIUM LEVEL 8.3 MG/DL (8.8-10.2); CREATININE FOR GFR 1.53 MG/DL (0.55-1.02); GLOMERULAR FILTRATION RATE 42.7 (>39); MAGNESIUM LEVEL 1.8 MG/DL (1.8-2.4); POTASSIUM SERUM 3.8 MEQ/L (3.5-5.1); TOTAL PROTEIN 9.7 GM/DL (6.4-8.2)
[2017-01-25] MEDS ORDERED: CORE3.12 PO (08:10)
[2017-01-25 08:51] VITALS: BP 148/73
[2017-01-25] MEDS: APIXABAN 5 MG TAB (ELIQUIS) PO SCH (08:51)
[2017-01-25] MEDS: amLODIPine 10 MG TAB PO SCH (08:51)
[2017-01-25] MEDS: AMIODARONE 200 MG TAB (PACERONE) PO SCH (08:51)
[2017-01-25] MEDS: CETIRIZINE (ZyrTEC) 10 MG TAB PO SCH (08:51)
[2017-01-25] MEDS ORDERED: CARVedilol 3.125 MG TAB PO SCH (09:00)
[2017-01-25 12:50] LABS: ALBUMIN 3.39 GM/DL (3.29-5.55); ALBUMIN % 36.9 % (55.8-66.1); GAMMA GLOBULIN % 41.7 % (11.1-18.8)
--- NOTE | 2017-01-25 13:10 | DSES ---
DATE OF ADMISSION: 01/22/2017 DATE OF DISCHARGE: 01/25/2017 PRIMARY DISCHARGE DIAGNOSES: 1. Sinus bradycardia, medication induced, secondary to Coreg. 2. Episode of diaphoresis, glucose of 80. 3. Acute kidney injury on chronic renal failure Stage III. 4. Hypertension. 5. Malignant melanoma. 6. History of pulmonary embolus (PE), negative PE on the study. 7. Obstructive sleep apnea, on CPAP at home. DISCHARGE MEDICATIONS: - Coreg 3.125 mg daily (hold for systolic pressure less than 120 or heart rate less than 70) - amiodarone 200 mg twice a day - Norvasc 10 mg daily - Eliquis 5 mg twice a day - Cetirizine 10 mg daily - chlorthalidone 25 daily - Clear Eyes - Lantus insulin 18 units subcutaneous at bedtime (document before meal and at bedtime glucose and adjust accordingly by primary care physician as outpatient) FOLLOWUP ISSUES: Sinus bradycardia, ventricular rate of 46 documented on telemetry. Outpatient followup with Dr. Watkins for adjustment of Coreg. HOSPITAL COURSE: This is a 76-year-old female who presented to the emergency room with history of atrial flutter status post cardioversion earlier this month on chronic Eliquis, Coreg and amiodarone, obstructive sleep apnea and unable to tolerate CPAP awaiting machine at home, transient ischemic attack (TIA) times four on chronic Eliquis, diabetes, hypertension, malignant melanoma status post excision, history of PE in the past treated with anticoagulation for six months who presented with shortness of breath, diaphoresis, dizziness and lightheadedness at home. On her heart monitor, the patient noted a heart rate of 38. Due to complaints of shortness of breath, the patient was evaluated by CT of chest and V/Q scan negative for PE, pneumonia or edema. She did receive one dose of Lasix in the emergency room (ER) with peak creatinine of 1.86. Her chlorthalidone was held for two days until the creatinine improved. CT of the head was unremarkable. Venous Dopplers of lower extremities were negative for deep vein thrombosis (DVT). The patient on telemetry was found to have sinus bradycardia with ventricular rate of 48. Her Coreg was decreased from 6.25 twice a day to 3.125 twice a day, still with persistent bradycardia of 46 to 48 with no complaints of diaphoresis, dizziness or lightheadedness. The patient complained of not feeling well and was found to have a glucose of 80 and her long acting insulin was decreased with significant improvement in her clinical state. The patient had acute kidney injury, most likely secondary to Lasix given in the ER. No signs of congestive heart failure. Creatinine peaked at 1.86 and improved to 1.5 at the day of discharge. A respiratory panel was negative. Influenza A and B were negative. The patient awaited a home safety evaluation and passed a home safety evaluation and was discharged home in stable condition. LABS ON DISCHARGE: White count 4.1, hemoglobin 11.8, hematocrit 35, and platelet count 248. Sodium 137, potassium 3.8, chloride 104, bicarbonate 24, BUN 25, creatinine 1.53, glucose 147, calcium 8.3, magnesium 1.8. BNP was 217. Total protein 9.7. Albumin 2.6. MICROBIOLOGY: Respiratory virus panel was negative. Influenza A and B are both negative. IMAGING STUDIES: V/Q scan low probability of PE. CT of the head with no acute intracranial pathology. No acute hemorrhage or infarct. Consistent with age related atrophy and chronic small vessel ischemic disease. Venous Dopplers of bilateral lower extremities were negative for DVT. Chest CT showed linear atelectasis in the right middle lobe, otherwise unremarkable study. TIME SPENT ON DISCHARGE: 30 minutes. MTDD
== END 2017-01-25 10:15 | disposition home health service (06) | DRG 309 ==
LOC: EDBD 16:31 → M ED 17:23 → M ED INP 01-22 01:13 → M PCU 01-22 12:56 → OBSVTOIN 01-22 15:05 → M MS5PR 01-23 14:01
PROVIDERS: ADMIT Internal Medicine; ATTEND General Practice
DX: R00.1 Bradycardia, unspecified (principal); N17.9 Acute kidney failure, unspecified; R06.02 Shortness of breath; I48.92 Unspecified atrial flutter; I12.9 Hypertensive chronic kidney disease with stage 1 through stage 4 chronic kidney disease, or unspecified chronic kidney disease; G47.33 Obstructive sleep apnea (adult) (pediatric); N18.3 Chronic kidney disease, stage 3 (moderate); Z87.11 Personal history of peptic ulcer disease; Z79.899 Other long term (current) drug therapy; Z79.4 Long term (current) use of insulin; E11.9 Type 2 diabetes mellitus without complications; Z86.73 Personal history of transient ischemic attack (TIA), and cerebral infarction without residual deficits; Z88.0 Allergy status to penicillin; Z88.2 Allergy status to sulfonamides; Z88.8 Allergy status to other drugs, medicaments and biological substances; Z85.820 Personal history of malignant melanoma of skin; T46.905A Adverse effect of unspecified agents primarily affecting the cardiovascular system, initial encounter

== ENCOUNTER 2017-03-08 09:23 | Emergency (ER) | payer MEDICARE, MEDICAID ==
[~2017-03-08] VITALS: Ht 162.6 cm; Wt 91.6 kg
[~2017-03-08 09:23] MED LIST changes: +ARTI99.0 OU; +CETI10TA PO; +CLEADRO8 OU; +CORE3.12 PO
[2017-03-08] MEDS ORDERED: INSULANT SC (09:42)
[2017-03-08] MEDS ORDERED: NS 500 ML IV ONE (10:45)
--- NOTE | 2017-03-08 11:21 | REP ---
PORTABLE CHEST: AP portable view of the chest are performed and compared to the prior study of 01/21/2017. There is cardiomegaly. Chronic bibasilar interstitial opacities are stable with evidence of acute infiltrate. There is calcification and ectasia of the thoracic aorta. The mediastinal silhouette is unchanged. IMPRESSION: Cardiomegaly. No acute infiltrate. Signed by Tye Fuentes MD 03/09/2017 04:02 P
[2017-03-08 11:26] LABS: BASO % 0.3 % (0.0-1.0); EOS % 0.4 % (0.0-3.0); LARGE UNSTAINED CELL # 0.2 K/mm3 (0.0-0.4); LARGE UNSTAINED CELL % 3.1 % (0.0-4.0); LYMPH # 2.1 K/mm3 (1.5-4.5); LYMPH % 26.6 % (24.0-44.0); MEAN CORPUSCULAR HEMOGLOBIN 27.7 pg (27.0-33.0); MEAN CORPUSCULAR HGB CONC 33.7 g/dl (32.0-36.5); MEAN CORPUSCULAR VOLUME 82.1 fl (80.0-96.0); MONO # 0.4 K/mm3 (0.0-0.8); MONO % 5.7 % (0.0-5.0); NEUTROPHILS # 4.6 K/mm3 (1.8-7.7); PLATELET COUNT, AUTOMATED 237 k/mm3 (150-450); RED CELL DISTRIBUTION WIDTH 15.1 % (11.5-14.5); WHITE BLOOD COUNT 7.1 K/mm3 (4.0-10.0)
[2017-03-08 12:01] LABS: CALCIUM LEVEL 8.7 MG/DL (8.8-10.2); CREATININE FOR GFR 1.68 MG/DL (0.55-1.02); GLOMERULAR FILTRATION RATE 38.3 (>39); POTASSIUM SERUM 3.6 MEQ/L (3.5-5.1)
[2017-03-08] MEDS ORDERED: ALBUTEROL SULFATE 2.5 MG/0.5 ML INH NEB SOLN NEB ONE (13:45)
[2017-03-08 14:31] VITALS: BP 179/83
--- NOTE | 2017-03-09 15:07 | ECGEPIP ---
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
== END 2017-03-08 16:20 | disposition home or self-care (01) ==
LOC: EDBD 09:23 → M ED 11:08
DX: J40 Bronchitis, not specified as acute or chronic (principal); J06.9 Acute upper respiratory infection, unspecified; R06.02 Shortness of breath; I44.0 Atrioventricular block, first degree; I10 Essential (primary) hypertension; E11.40 Type 2 diabetes mellitus with diabetic neuropathy, unspecified; I48.91 Unspecified atrial fibrillation; G47.30 Sleep apnea, unspecified; M10.9 Gout, unspecified

== ENCOUNTER 2017-03-12 21:04 | Emergency (ER) | payer MEDICARE, MEDICAID ==
[~2017-03-12] VITALS: Ht 162.6 cm; Wt 91.6 kg
[2017-03-12] MEDS ORDERED: ALBUTEROL SULFATE 2.5 MG/0.5 ML INH NEB SOLN NEB PRN (22:30)
[2017-03-12] MEDS ORDERED: methylPREDNISolone INJ 125 MG/2 ML VIAL (J2930) IV ONE (22:30)
[2017-03-12 22:45] LABS: BASO % 0.2 % (0.0-1.0); LARGE UNSTAINED CELL # 0.2 K/mm3 (0.0-0.4); LARGE UNSTAINED CELL % 4.7 % (0.0-4.0); MEAN CORPUSCULAR HEMOGLOBIN 28.2 pg (27.0-33.0); MEAN CORPUSCULAR HGB CONC 33.8 g/dl (32.0-36.5); MEAN CORPUSCULAR VOLUME 83.4 fl (80.0-96.0); MONO # 0.3 K/mm3 (0.0-0.8); MONO % 5.4 % (0.0-5.0); NEUTROPHILS # 2.4 K/mm3 (1.8-7.7); NEUTROPHILS % 48.7 % (36.0-66.0); PLATELET COUNT, AUTOMATED 259 k/mm3 (150-450); RED CELL DISTRIBUTION WIDTH 14.8 % (11.5-14.5)
[2017-03-12 23:09] LABS: CREATININE FOR GFR 1.63 MG/DL (0.55-1.02); GLOMERULAR FILTRATION RATE 39.7 (>39); POTASSIUM SERUM 3.7 MEQ/L (3.5-5.1)
[2017-03-13] MEDS ORDERED: TESS100C PO (01:02)
[2017-03-13] MEDS ORDERED: PRED20TA PO (01:02)
[2017-03-13 02:03] VITALS: BP 137/72
--- NOTE | 2017-03-13 12:46 | REP ---
CHEST, TWO VIEWS: Two views of the chest are performed and compared with prior studies of 03/08/2017 and 01/21/2017. There is cardiomegaly again noted, unchanged. There is bibasilar interstitial fibrosis. No new infiltrates are seen. There is calcification of the thoracic aorta. Mediastinal silhouette is unchanged. There are degenerative changes of the spine. IMPRESSION: Cardiomegaly and chronic changes appear stable. No new infiltrates. Signed by Tye Fuentes MD 03/13/2017 07:48 P
--- NOTE | 2017-03-13 16:45 | ECGEPIP ---
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
== END 2017-03-13 02:05 | disposition home or self-care (01) ==
LOC: EDBD 21:04 → M ED 22:42
DX: J20.9 Acute bronchitis, unspecified (principal); I51.7 Cardiomegaly; Z79.899 Other long term (current) drug therapy; Z79.4 Long term (current) use of insulin; Z79.51 Long term (current) use of inhaled steroids; Z88.0 Allergy status to penicillin; Z88.2 Allergy status to sulfonamides; Z88.8 Allergy status to other drugs, medicaments and biological substances; J30.1 Allergic rhinitis due to pollen
CPT/HCPCS: 71020; 80048; 85025; 87040; 93005; 93041; 94640; 94760; 96374; 99285; J2930

== ENCOUNTER → 2017-03-23 | Outpatient (CLI) | payer MEDICARE, MEDICAID ==
[~2017-03-23] MED LIST changes: +PRED20TA PO; +TESS100C PO
[2017-03-23 09:31] LABS: BASO % 0.2 % (0.0-1.0); EOS % 0.1 % (0.0-3.0); LARGE UNSTAINED CELL # 0.1 K/mm3 (0.0-0.4); LARGE UNSTAINED CELL % 1.3 % (0.0-4.0); LYMPH # 1.4 K/mm3 (1.5-4.5); LYMPH % 16.9 % (24.0-44.0); MEAN CORPUSCULAR HEMOGLOBIN 27.8 pg (27.0-33.0); MEAN CORPUSCULAR HGB CONC 32.5 g/dl (32.0-36.5); MEAN CORPUSCULAR VOLUME 85.5 fl (80.0-96.0); MONO # 0.4 K/mm3 (0.0-0.8); MONO % 5.6 % (0.0-5.0); PLATELET COUNT, AUTOMATED 321 k/mm3 (150-450); RED CELL DISTRIBUTION WIDTH 15.3 % (11.5-14.5); WHITE BLOOD COUNT 7.8 K/mm3 (4.0-10.0)
[2017-03-23 09:38] LABS: ALBUMIN 2.9 GM/DL (3.2-5.2); ALBUMIN/GLOBULIN RATIO 0.48 (1.00-1.93); BILIRUBIN,TOTAL 0.3 MG/DL (0.2-1.0); CALCIUM LEVEL 8.4 MG/DL (8.8-10.2); CREATININE FOR GFR 1.77 MG/DL (0.55-1.02); FREE T4 1.25 NG/DL (0.76-1.46); GLOMERULAR FILTRATION RATE 36.1 (>39); POTASSIUM SERUM 4.7 MEQ/L (3.5-5.1); TOTAL PROTEIN 8.9 GM/DL (6.4-8.2); URIC ACID 6.5 MG/DL (2.6-6.0)
[2017-03-23 10:45] LABS: ERYTHROCYTE SEDIMENTATION RATE 67 mm/hr (0-30)
== END ==
LOC: M LAB 08:06
PROVIDERS: ATTEND Family Medicine
DX: E11.22 Type 2 diabetes mellitus with diabetic chronic kidney disease (principal); N18.3 Chronic kidney disease, stage 3 (moderate); M19.90 Unspecified osteoarthritis, unspecified site; D64.9 Anemia, unspecified; M10.9 Gout, unspecified; I12.9 Hypertensive chronic kidney disease with stage 1 through stage 4 chronic kidney disease, or unspecified chronic kidney disease; R94.6 Abnormal results of thyroid function studies

== ENCOUNTER → 2017-03-23 | Outpatient (CLI) | payer MEDICARE, MEDICAID ==
[2017-03-23 10:36] LABS: CALCIUM LEVEL 8.4 MG/DL (8.8-10.2); CREATININE FOR GFR 1.77 MG/DL (0.55-1.02); GLOMERULAR FILTRATION RATE 36.1 (>39); POTASSIUM SERUM 4.7 MEQ/L (3.5-5.1)
== END ==
LOC: M LAB 08:02
PROVIDERS: ATTEND Internal Medicine Cardiovascular Disease
DX: I11.0 Hypertensive heart disease with heart failure (principal)

== ENCOUNTER 2017-04-01 12:37 | Emergency (ER) | payer MEDICARE, MEDICAID ==
[~2017-04-01] VITALS: Ht 172.7 cm; Wt 95.7 kg
[2017-04-01 13:14] LABS: BASO % 0.4 % (0.0-1.0); EOS # 0.1 K/mm3 (0.0-0.50); EOS % 1.3 % (0.0-3.0); LARGE UNSTAINED CELL # 0.2 K/mm3 (0.0-0.4); LARGE UNSTAINED CELL % 4.1 % (0.0-4.0); LYMPH # 1.7 K/mm3 (1.5-4.5); LYMPH % 36.2 % (24.0-44.0); MEAN CORPUSCULAR HEMOGLOBIN 27.9 pg (27.0-33.0); MEAN CORPUSCULAR HGB CONC 33.6 g/dl (32.0-36.5); MEAN CORPUSCULAR VOLUME 82.9 fl (80.0-96.0); MONO # 0.3 K/mm3 (0.0-0.8); MONO % 6.8 % (0.0-5.0); NEUTROPHILS # 2.3 K/mm3 (1.8-7.7); NEUTROPHILS % 51.2 % (36.0-66.0); PLATELET COUNT, AUTOMATED 245 k/mm3 (150-450); RED CELL DISTRIBUTION WIDTH 14.9 % (11.5-14.5); WHITE BLOOD COUNT 4.6 K/mm3 (4.0-10.0)
[2017-04-01 13:34] LABS: ALBUMIN 2.7 GM/DL (3.2-5.2); ALBUMIN/GLOBULIN RATIO 0.43 (1.00-1.93); ALKALINE PHOSPHATASE 115 U/L (45-117); ALT/SGPT 22 U/L (12-78); ANION GAP 8 MEQ/L (8-16); AST/SGOT 17 U/L (15-37); BILIRUBIN,DIRECT < 0.1 MG/DL (0.0-0.2); BILIRUBIN,TOTAL 0.3 MG/DL (0.2-1.0); BLOOD UREA NITROGEN 18 MG/DL (7-18); CALCIUM LEVEL 8.7 MG/DL (8.8-10.2); CARBON DIOXIDE LEVEL 25 MEQ/L (21-32); CHLORIDE LEVEL 102 MEQ/L (98-107); CREATININE FOR GFR 1.45 MG/DL (0.55-1.02); GLOMERULAR FILTRATION RATE 45.4 (>39); GLUCOSE, FASTING 194 MG/DL (83-110); POTASSIUM SERUM 3.7 MEQ/L (3.5-5.1); SODIUM LEVEL 135 MEQ/L (136-145)
--- NOTE | 2017-04-01 13:45 | REP ---
PORTABLE CHEST: AP portable view of the is performed and compared with prior study of 03/12/2017. There is cardiomegaly. Chronic bibasilar interstitial opacities are stable with no new infiltrate. Mediastinal silhouette is unchanged. There is calcification of thoracic aorta. IMPRESSION: Cardiomegaly. Stable chronic findings without evidence of acute infiltrate. Signed by Tye Fuentes MD 04/01/2017 07:13 P
[2017-04-01 14:43] VITALS: O2SAT 95
[2017-04-01 16:35] VITALS: BP 147/84
--- NOTE | 2017-04-03 07:10 | ECGEPIP ---
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
== END 2017-04-01 16:36 | disposition home or self-care (01) ==
LOC: M ED 13:51
DX: I27.2 Other secondary pulmonary hypertension (principal); I51.7 Cardiomegaly; I25.10 Atherosclerotic heart disease of native coronary artery without angina pectoris; I48.91 Unspecified atrial fibrillation; E07.9 Disorder of thyroid, unspecified; Z86.73 Personal history of transient ischemic attack (TIA), and cerebral infarction without residual deficits; Z79.899 Other long term (current) drug therapy; Z79.52 Long term (current) use of systemic steroids; Z79.4 Long term (current) use of insulin; Z79.01 Long term (current) use of anticoagulants; Z88.0 Allergy status to penicillin; Z88.2 Allergy status to sulfonamides; Z88.8 Allergy status to other drugs, medicaments and biological substances; J30.1 Allergic rhinitis due to pollen

== ENCOUNTER 2017-04-05 16:23 | Emergency (ER) | payer MEDICARE, MEDICAID ==
[~2017-04-05] VITALS: Ht 170.2 cm; Wt 94.8 kg
[2017-04-05] MEDS ORDERED: FEBU40TA PO (17:05)
[2017-04-05 18:12] LABS: BASO % 0.5 % (0.0-1.0); EOS # 0.1 K/mm3 (0.0-0.50); EOS % 1.9 % (0.0-3.0); LARGE UNSTAINED CELL # 0.1 K/mm3 (0.0-0.4); LARGE UNSTAINED CELL % 3.4 % (0.0-4.0); LYMPH # 1.6 K/mm3 (1.5-4.5); LYMPH % 41.1 % (24.0-44.0); MEAN CORPUSCULAR HEMOGLOBIN 27.6 pg (27.0-33.0); MEAN CORPUSCULAR HGB CONC 32.9 g/dl (32.0-36.5); MONO # 0.3 K/mm3 (0.0-0.8); MONO % 7.9 % (0.0-5.0); NEUTROPHILS # 1.7 K/mm3 (1.8-7.7); NEUTROPHILS % 45.1 % (36.0-66.0); PLATELET COUNT, AUTOMATED 244 k/mm3 (150-450); RED CELL DISTRIBUTION WIDTH 15.1 % (11.5-14.5); WHITE BLOOD COUNT 3.7 K/mm3 (4.0-10.0)
[2017-04-05 18:40] LABS: ANION GAP 8 MEQ/L (8-16); BLOOD UREA NITROGEN 26 MG/DL (7-18); CALCIUM LEVEL 8.3 MG/DL (8.8-10.2); CARBON DIOXIDE LEVEL 26 MEQ/L (21-32); CHLORIDE LEVEL 102 MEQ/L (98-107); CREATININE FOR GFR 1.47 MG/DL (0.55-1.02); GLOMERULAR FILTRATION RATE 44.7 (>39); GLUCOSE, FASTING 289 MG/DL (83-110); POTASSIUM SERUM 3.8 MEQ/L (3.5-5.1); SODIUM LEVEL 136 MEQ/L (136-145)
--- NOTE | 2017-04-05 18:48 | REP ---
PA and lateral chest: Comparison is 04/01/2017, 512.79. 2015. There is chronic cardiomegaly, unchanged. There is thoracic scoliosis, unchanged. There are no acute infiltrates or effusions. There are no masses. The bing, mediastinum, bony thorax are unchanged. Impression: Chronic cardiomegaly. No acute cardiopulmonary findings Signed by Tye Meneses MD 04/05/2017 06:40 P
[2017-04-05] MEDS ORDERED: IPRATROPIUM 0.5MG/ALBUTEROL 2.5MG INH SOL UD 3ML (DUONEB)(J7620) NEB ONE (20:00)
[2017-04-05] MEDS ORDERED: ISOVUE-370 76% 100ML VIAL (Q9967) As Ordered ONE (21:09)
--- NOTE | 2017-04-05 21:50 | REPUSA ---
CT angiogram of the chest Clinical statement: shortness of breath. Technique: Multiple axial CT images were obtained from the thoracic inlet through the upper abdomen a fter a bolus administration of nonionic intravenous contrast. Coronal and sagittal reconstructions we re also obtained. Comparison: 01.21. Findings: The pulmonary arteries are well-opacified with contrast, with no intraluminal filling defec ts to suggest embolism. The thoracic aorta is unremarkable. Thyroid gland is within normal limits. Th ere is no thoracic lymphadenopathy. There are no pericardial or pleural effusions. The lungs are jesusita r. Linear atelectasis in the right upper lung is stable. The heart is enlarged. Limited imaging of th e upper abdomen is unremarkable. There are no suspicious osseous lesions. Impression: 1. No evidence of pulmonary embolism. 2. Mild stable cardiomegaly. 3. No acute infiltrates. Stable scarring in the right upper lung.
[2017-04-05 22:32] VITALS: O2SAT 98
[2017-04-05 22:51] VITALS: BP 144/77
--- NOTE | 2017-04-06 08:22 | ECGEPIP ---
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
== END 2017-04-05 23:01 | disposition home or self-care (01) ==
LOC: EDBD 16:23 → M ED 18:41
DX: R06.02 Shortness of breath (principal); I51.7 Cardiomegaly; I27.0 Primary pulmonary hypertension; E11.9 Type 2 diabetes mellitus without complications; Z79.4 Long term (current) use of insulin; Z79.01 Long term (current) use of anticoagulants; Z79.899 Other long term (current) drug therapy
CPT/HCPCS: 36415; 71020; 71275; 80048; 82550; 82553; 83880; 84484; 85025; 93005; 93041; 94640; 94760; 99285; Q9967

== ENCOUNTER → 2017-04-21 | Outpatient (CLI) | payer MEDICARE, MEDICAID ==
[2017-04-21 13:09] LABS: ALBUMIN 3.5 GM/DL (3.2-5.2); ALBUMIN/GLOBULIN RATIO 0.58 (1.00-1.93); ALKALINE PHOSPHATASE 112 U/L (45-117); ALT/SGPT 22 U/L (12-78); ANION GAP 6 MEQ/L (8-16); AST/SGOT 21 U/L (15-37); BILIRUBIN,TOTAL 0.4 MG/DL (0.2-1.0); BLOOD UREA NITROGEN 39 MG/DL (7-18); CALCIUM LEVEL 9.1 MG/DL (8.8-10.2); CARBON DIOXIDE LEVEL 28 MEQ/L (21-32); CHLORIDE LEVEL 101 MEQ/L (98-107); CREATININE FOR GFR 2.12 MG/DL (0.55-1.02); GLOMERULAR FILTRATION RATE 29.3 (>39); GLUCOSE, FASTING 243 MG/DL (83-110); IMMUNOGLOBULIN G 2940 MG/DL (681-1648); IMMUNOGLOBULIN M 148 MG/DL (40-230); POTASSIUM SERUM 3.9 MEQ/L (3.5-5.1); SODIUM LEVEL 135 MEQ/L (136-145); TOTAL PROTEIN 9.5 GM/DL (6.4-8.2); URIC ACID 5.8 MG/DL (2.6-6.0)
[2017-04-21 14:00] LABS: IMMUNOGLOBULIN E < 3.6 IU/ML (<100)
== END ==
LOC: M LAB 09:27
PROVIDERS: ATTEND Family Medicine
DX: R77.8 Other specified abnormalities of plasma proteins (principal); N18.3 Chronic kidney disease, stage 3 (moderate); E79.0 Hyperuricemia without signs of inflammatory arthritis and tophaceous disease; E11.22 Type 2 diabetes mellitus with diabetic chronic kidney disease

== ENCOUNTER 2017-05-04 09:14 | Emergency (ER) | payer MEDICARE, MEDICAID ==
[~2017-05-04] VITALS: Ht 162.6 cm; Wt 96.4 kg
[~2017-05-04 09:14] MED LIST changes: +AMIO200T; +AMIO200T PO; -AMIO20TA; -AMIO20TA PO; +COLC1TAB14 PO; -COLC1TAB5 PO; +MECL1CHW2 PO; -PRAV10TA PO; +PRAV10TA4 PO
[2017-05-04] MEDS: SODIUM CHLORIDE 0.9% 1000 ML IV ONE (09:50)
[2017-05-04 10:01] LABS: EOS % 0.9 % (0.0-3.0); LARGE UNSTAINED CELL # 0.2 K/mm3 (0.0-0.4); LARGE UNSTAINED CELL % 5.9 % (0.0-4.0); LYMPH # 1.4 K/mm3 (1.5-4.5); LYMPH % 40.9 % (24.0-44.0); MEAN CORPUSCULAR HEMOGLOBIN 27.8 pg (27.0-33.0); MEAN CORPUSCULAR HGB CONC 33.6 g/dl (32.0-36.5); MEAN CORPUSCULAR VOLUME 82.6 fl (80.0-96.0); MONO # 0.3 K/mm3 (0.0-0.8); MONO % 7.8 % (0.0-5.0); NEUTROPHILS # 1.4 K/mm3 (1.8-7.7); NEUTROPHILS % 43.5 % (36.0-66.0); PLATELET COUNT, AUTOMATED 258 k/mm3 (150-450); WHITE BLOOD COUNT 3.3 K/mm3 (4.0-10.0)
[2017-05-04 10:12] LABS: INR 1.2
[2017-05-04 10:27] LABS: CALCIUM LEVEL 8.5 MG/DL (8.8-10.2); CREATININE FOR GFR 1.92 MG/DL (0.55-1.02); FREE T4 1.32 NG/DL (0.76-1.46); GLOMERULAR FILTRATION RATE 32.8 (>39); POTASSIUM SERUM 3.7 MEQ/L (3.5-5.1)
--- NOTE | 2017-05-04 10:28 | REP ---
Clinical: Syncope . Comparison: 01/22/2017 . Findings: The ventricles, sulci, and cisterns are normal in position and appearance. Fuentes-white differentiation is maintained. No acute intracranial hemorrhage, mass/mass effect, pathology or trauma/injury. No evidence for acute infarction. No extra-axial fluid collection. Calvarium is intact. Paranasal sinuses and mastoid air cells are clear. Impression: Normal noncontrast head CT. No evidence for acute intracranial pathology or trauma/injury. Signed by Onel Ragsdale MD 05/04/2017 10:19 A
--- NOTE | 2017-05-04 10:44 | REP ---
Clinical: Syncope . Comparison: 04/05/2017 . Findings: The mediastinum and cardiac silhouette are stable and within normal limits for portable technique. The lung trujillo are clear without acute consolidation, effusion, or pneumothorax. Skeletal structures are intact. Impression: No acute cardiopulmonary process appreciated. Signed by Onel Ragsdale MD 05/04/2017 10:34 A
--- NOTE | 2017-05-04 14:52 | ECGEPIP ---
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
[2017-05-04 16:31] VITALS: BP 166/90
== END 2017-05-04 17:13 | disposition home or self-care (01) ==
LOC: M ED 09:14 → EDBD 09:14 → M ED 17:13
DX: R42 Dizziness and giddiness (principal); E11.9 Type 2 diabetes mellitus without complications; I48.91 Unspecified atrial fibrillation; N18.9 Chronic kidney disease, unspecified; Z79.01 Long term (current) use of anticoagulants; Z86.73 Personal history of transient ischemic attack (TIA), and cerebral infarction without residual deficits

== ENCOUNTER → 2017-05-12 | Outpatient (CLI) | payer MEDICARE, MEDICAID ==
[~2017-05-12] MED LIST changes: +PERC5TAB12 PO; +TYLE325T5 PO
[2017-05-12 08:38] LABS: CALCIUM LEVEL 8.9 MG/DL (8.8-10.2); CREATININE FOR GFR 1.99 MG/DL (0.55-1.02); GLOMERULAR FILTRATION RATE 31.5 (>39); POTASSIUM SERUM 4.2 MEQ/L (3.5-5.1)
== END ==
LOC: M LAB 07:51
PROVIDERS: ATTEND Internal Medicine Cardiovascular Disease
DX: I48.0 Paroxysmal atrial fibrillation (principal); I10 Essential (primary) hypertension

== ENCOUNTER → 2017-05-14 | Outpatient (REF) | payer MEDICARE, MEDICAID ==
[2017-05-14 14:02] LABS: IMMUNOGLOBULIN G 2780 MG/DL (681-1648); IMMUNOGLOBULIN M 151 MG/DL (40-230); TOTAL PROTEIN 8.7 GM/DL (6.4-8.2)
[2017-05-16 00:11] LABS: BETA 2 MICROGLOBULIN 5.9 mg/L (0.6-2.4); FREE KAPPA LIGHT CHAINS SERUM 199.8 mg/L (3.3-19.4); FREE LAMBDA LIGHT CHAINS SERUM 66.3 mg/L (5.7-26.3); KAPPA/LAMBDA RATIO SERUM 3.01 (0.26-1.65)
[2017-05-17 11:02] LABS: ALBUMIN 3.81 GM/DL (3.29-5.55); ALBUMIN % 43.8 % (55.8-66.1); GAMMA GLOBULIN % 32.7 % (11.1-18.8)
== END ==
LOC: M LAB REF 13:19
PROVIDERS: ATTEND Internal Medicine Medical Oncology
DX: D47.2 Monoclonal gammopathy (principal)

== ENCOUNTER → 2017-05-16 | Outpatient (CLI) | payer MEDICARE, MEDICAID ==
--- NOTE | 2017-05-16 10:44 | REP ---
BONE SURVEY, 15 VIEWS: HISTORY: Elevated IgG. AP AND LATERAL SKULL: There is no acute fracture or bone lesion. CERVICAL SPINE, TWO VIEWS: There is no acute fracture or subluxation. The C6-7 intervertebral disc is decreased in height consistent with disc degeneration. Osteophytes are present on C2 through C6. BILATERAL HUMERUS: There is no acute fracture, dislocation or bone lesion. There is narrowing of the shoulder joint spaces with associated osteophyte formation. AP, LATERAL, THORACIC LUMBAR SPINE: There is no acute fracture or subluxation. There is loss of height of the lumbar intervertebral discs and several thoracic intervertebral discs. Osteophytes are present throughout the thoracic and lumbar spine. AP PELVIS: There is no acute fracture or dislocation. There is narrowing of the joint spaces. BILATERAL FEMURS: There is no acute fracture, dislocation or bone lesion. There is narrowing of the hip and knee joint spaces. IMPRESSION: Bone survey as described above. Signed by Nii Brandt MD 05/16/2017 10:51 A
== END ==
LOC: M RAD 08:52
PROVIDERS: ATTEND Internal Medicine Medical Oncology
DX: R76.9 Abnormal immunological finding in serum, unspecified (principal)

== ENCOUNTER → 2017-05-19 | Outpatient (REF) | payer MEDICARE, MEDICAID | LOC: M LAB REF 16:31 | PROVIDERS: ATTEND Internal Medicine Medical Oncology | DX: D47.2 Monoclonal gammopathy (principal) ==

== ENCOUNTER 2017-05-22 22:34 | Emergency (ER) | payer MEDICARE, MEDICAID ==
[~2017-05-22] VITALS: Ht 162.6 cm; Wt 97.3 kg
[~2017-05-22 22:34] MED LIST changes: -PERC5TAB12 PO; -TYLE325T5 PO
[2017-05-22 22:40] VITALS: BP 178/88
[2017-05-22] MEDS ORDERED: TYLE325T5 PO (23:17)
[2017-05-22] MEDS ORDERED: PERCOCET 5MG/325MG TAB PO ONE (23:30)
[2017-05-22] MEDS ORDERED: PERC5TAB12 PO (23:33)
[2017-05-22] MEDS ORDERED: OXYCODONE/APAP 5MG/325MG(BULK FOR ED) 1 TABLET PO ONE (23:45)
== END 2017-05-23 00:15 | disposition home or self-care (01) ==
LOC: EDBD 22:34 → EDSEX 22:34 → M ED 23:30
DX: G89.29 Other chronic pain (principal); M54.5 Low back pain; E11.9 Type 2 diabetes mellitus without complications; G47.33 Obstructive sleep apnea (adult) (pediatric); M06.9 Rheumatoid arthritis, unspecified; Z86.73 Personal history of transient ischemic attack (TIA), and cerebral infarction without residual deficits; Z88.0 Allergy status to penicillin; Z88.2 Allergy status to sulfonamides; Z88.8 Allergy status to other drugs, medicaments and biological substances; Z88.6 Allergy status to analgesic agent; Z87.891 Personal history of nicotine dependence; Z79.4 Long term (current) use of insulin; Z79.899 Other long term (current) drug therapy

== ENCOUNTER → 2017-05-27 | Outpatient (REF) | payer MEDICARE, MEDICAID ==
[~2017-05-27] MED LIST changes: +PERC5TAB12 PO; +TYLE325T5 PO
== END ==
LOC: M LAB REF 13:03
PROVIDERS: ATTEND Internal Medicine Nephrology
DX: R80.9 Proteinuria, unspecified (principal); N18.3 Chronic kidney disease, stage 3 (moderate)